=== PATIENT | female | born 1965 | race African-American/Black ===

== ENCOUNTER 2019-02-09 23:36 | Inpatient (IN) | payer BC, OTHER ==
[2019-02-10] MEDS ORDERED: ONDANSETRON 4 MG/2 ML VIAL IVPUSH ONE (01:22)
[2019-02-10] MEDS ORDERED: ACETAMINOPHEN 1000 MG/100 ML VIAL (NON FORMULARY) IVPB ONE (01:23)
--- NOTE | 2019-02-10 01:30 | PDOC ---
History of Present Illness - General Chief Complaint: SIRS, Suspected/Possible Stated Complaint: ICHING/FEVER/VOMITING Time Seen by Provider: 02/10/19 01:01 History Source: Patient, Family Exam Limitations: No Limitations - History of Present Illness Initial Comments: 02/10/19 01:25 53YOF with h/o CHF (states on two water pills), HTN, HLD, DM (not adherent to medications), and morbid obesity who p/w fever tonight, malaise, nausea, SOB, cough productive of clear sputum, orthopnea, worsened leg swelling, and redness/ itching to her extremities. The family deny having given her any antipyretic or other medication for her symptoms. They express concern that she has not been taking her medications regularly. The patient states that she is stressed because her mother just yesterday and she has not been able to focus on her health. Denies recent sick contacts. Past History - Past Medical History Allergies/Adverse Reactions: Allergies Allergy/AdvReac Type Severity Reaction Status Date / Time cortisone [Cortisone] AdvReac Mild Rash Verified 02/10/19 00:27 Home Medications: Ambulatory Orders Bupropion HCl [Wellbutrin Xl -] 300 mg PO DAILY 11/28/13 Rabeprazole Sodium [Aciphex] 20 mg PO DAILY 11/28/13 Loperamide HCl [Imodium -] 2 mg PO PRN PRN 12/01/13 Anemia: No Asthma: Yes Cardiac Disorders: Yes COPD: No Diabetes: Yes GI Disorders: Yes (ACID REFLUX,IBS) HTN: Yes Hypercholesterolemia: Yes - Surgical History Gastric Stapling: Yes (SLEEVE) - Suicide/Smoking/Psychosocial Hx Smoking History: Never smoked Have you smoked in the past 12 months: Yes Number of Cigarettes Smoked Daily: 5 'Breaking Loose' booklet given: 11/28/13 Hx Alcohol Use: Yes (OCC) Drug/Substance Use Hx: No Review of Systems - Review of Systems Able to Perform ROS?: Yes Comments:: 02/10/19 01:30 GEN: fever, chills, malaise, generalized weakness HEENT: no ear pain, sore throat, vision change, or eye pain CV: edema, no chest pain, palpitations, lightheadedness, or syncope RESP: cough, SOB GI: nausea, vomiting, diarrhea, vague abdominal pain, constipation, or white/ black/bloody stool : no dysuria, hematuria, incontinence, retention, bleeding, or discharge MSK: no neck/back pain, muscle weakness/pain, or joint pain NEURO: no headache, seizure, vertigo, numbness, tingling, or focal weakness PSYCH: no substance use, no behavior change SKIN: itchy rash to extremities, no jaundice ROS otherwise negative except as noted in HPI *Physical Exam - Vital Signs Last Vital Signs Temp Pulse Resp BP Pulse Ox 101.5 F H 114 H 22 H 116/73 95 02/10/19 00:24 02/10/19 00:24 02/10/19 00:24 02/10/19 00:24 02/10/19 00:24 - Physical Exam Comments: 02/10/19 01:32 GENERAL: pleasant but morbidly obese and a bit ill-appearing, A/Ox4, no distress , answers questions appropriately, speaking 3 word sentences HEENT: PERRLA, EOMI, moist mucous membranes NECK/BACK: no midline ttp, no spinal stepoff or deformity, no hematoma, full ROM , neck supple CARDIOVASCULAR: regular rate/rhythm, normal S1S2, no MGR, strong peripheral pulses, capillary refill <2 seconds, extremities wwp, 2+ pitting edema BLE and lipodermatosclerosis BLE LUNGS/RESPIRATORY: frequent cough, mild respiratory distress, CTAB GI/ABDOMEN: protuberant, symmetric [id number], normoactive BS, soft, no ttp, no midline pulsatile masses : no CVA tenderness EXTREMITIES: no muscle atrophy, no acute deformity SKIN: hot to the touch, no pallor, no jaundice, bilateral hand and foot mild pruritis rash which does not appear infectious in nature and is nontender, no bruising, no skin breakdown, no cuts, no lesions NEUROLOGICAL: GCS 15, CN II-XII grossly intact, 5/5 strength proximally and distally, no facial droop ED Treatment Course - LABORATORY CBC & Chemistry Diagram: 02/10/19 01:42 02/10/19 03:07 - RADIOLOGY Radiology Studies Ordered: Category Date Time Status CHEST X-RAY PORTABLE* [RAD] Stat Radiology 02/10/19 01:09 Ordered Medical Decision Making - Medical Decision Making 02/10/19 01:35 53YOF with h/o CHF who p/w fever, n/v/d, and also SOB, cough, orthopnea same as their prior CHF. Initial Vital Signs Temp Pulse Resp BP Pulse Ox 101.5 F H 114 H 22 H 116/73 95 02/10/19 00:24 02/10/19 00:24 02/10/19 00:24 02/10/19 00:24 02/10/19 00:24 Exam: As noted in Physical Exam section. DDX IBNLT: most likely viral syndrome/viral URI or influenza with superimposed CHF exacerbation, also possible PNA/bronchitis, pulmonary edema, other lung disease, ACS, pericarditis, AD, PE, PTX, allergic reaction, malignancy (e.g. causing pericardial effusion or vascular shunt), other infection, pulmonary HTN , etc. W/U ordered: CBCD CMP Troponin CK CKMB BNP UA UCx EKG CXR TX ordered: Parker Stewart EKG: Reviewed; results as noted in ECG Review section. CXR: Peripheral vascular congestion and enlarged cardiomediastinal silhouette. 02/10/19 02:50 Just noted that CMP is hemolyzed; re-ordered CMP, cardiac panel, BNP. 02/10/19 03:01 CXR noted with enlarged cardiomediastinal silhouette. Patient volume overloaded clinically and home dose Lasix is given IV. 02/10/19 04:35 Still awaiting chemistries on this patient. Laboratory Tests 02/10/19 02/10/19 02/10/19 00:29 01:42 01:42 WBC 4.5 RBC 4.50 Hgb 12.2 Hct 37.5 MCV 83.4 MCH 27.1 MCHC 32.4 RDW 18.8 H Plt Count 286 MPV 7.9 Absolute Neuts (auto) 3.0 Total Counted 100 Neutrophils % 66.3 Neutrophils % (Manual) 62.0 Band Neutrophils % 7.0 Lymphocytes % 9.8 Lymphocytes % (Manual) 10.0 Monocytes % 22.7 H Monocytes % (Manual) 20 H Eosinophils % 0.3 Basophils % 0.9 Basophils % (Manual) 1.0 Nucleated RBC % 0 Smudge Cells Few Platelet Estimate Adequate Platelet Comment No clotting detected PT with INR 11.90 INR 1.01 PTT (Actin FS) 29.3 VBG pH POC VBG pCO2 POC VBG pO2 VBG HCO3 VBG O2 Sat ([place]) VBG Base Excess Sodium Potassium Chloride Carbon Dioxide Anion Gap BUN Creatinine Est GFR (CKD-EPI)AfAm Est GFR (CKD-EPI)NonAf Random Glucose Lactic Acid 1.7 Calcium Total Bilirubin AST ALT Alkaline Phosphatase Creatine Kinase Troponin I B-Natriuretic Peptide Total Protein Albumin Influenza A (Rapid) Influenza B (Rapid) 02/10/19 02/10/19 02/10/19 01:42 01:42 01:42 WBC RBC Hgb Hct MCV MCH MCHC RDW Plt Count MPV Absolute Neuts (auto) Total Counted Neutrophils % Neutrophils % (Manual) Band Neutrophils % Lymphocytes % Lymphocytes % (Manual) Monocytes % Monocytes % (Manual) Eosinophils % Basophils % Basophils % (Manual) Nucleated RBC % Smudge Cells Platelet Estimate Platelet Comment PT with INR INR PTT (Actin FS) VBG pH 7.48 H POC VBG pCO2 47.6 POC VBG pO2 55.1 H VBG HCO3 34.7 H VBG O2 Sat ([place]) 88.0 H VBG Base Excess 10.0 H Sodium Cancelled Potassium Cancelled Chloride Cancelled Carbon Dioxide Cancelled Anion Gap Cancelled BUN Cancelled Creatinine Cancelled Est GFR (CKD-EPI)AfAm Cancelled Est GFR (CKD-EPI)NonAf Cancelled Random Glucose Cancelled Lactic Acid Calcium Cancelled Total Bilirubin Cancelled AST Cancelled ALT Cancelled Alkaline Phosphatase Cancelled Creatine Kinase Troponin I Cancelled B-Natriuretic Peptide Cancelled Total Protein Cancelled Albumin Cancelled Influenza A (Rapid) Influenza B (Rapid) 02/10/19 02/10/19 01:42 03:07 WBC RBC Hgb Hct MCV MCH MCHC RDW Plt Count MPV Absolute Neuts (auto) Total Counted Neutrophils % Neutrophils % (Manual) Band Neutrophils % Lymphocytes % Lymphocytes % (Manual) Monocytes % Monocytes % (Manual) Eosinophils % Basophils % Basophils % (Manual) Nucleated RBC % Smudge Cells Platelet Estimate Platelet Comment PT with INR INR PTT (Actin FS) VBG pH POC VBG pCO2 POC VBG pO2 VBG HCO3 VBG O2 Sat ([place]) VBG Base Excess Sodium 126 L Potassium 3.5 Chloride 85 L Carbon Dioxide 33 H Anion Gap 8 BUN 12.5 Creatinine 1.0 Est GFR (CKD-EPI)AfAm 75.54 Est GFR (CKD-EPI)NonAf 65.18 Random Glucose 119 H Lactic Acid Calcium 8.4 L Total Bilirubin 0.3 AST 90 H ALT 68 H Alkaline Phosphatase 85 Creatine Kinase 121 Troponin I < 0.02 B-Natriuretic Peptide 41.7 Total Protein 7.4 Albumin 3.4 Influenza A (Rapid) Negative Influenza B (Rapid) Negative Reassessment: Exam unchanged. Vital Signs Temperature 101.5 F H 02/10/19 00:24 Pulse Rate 109 H 02/10/19 03:06 Respiratory Rate 20 02/10/19 03:06 Blood Pressure 119/56 L 02/10/19 03:06 O2 Sat by Pulse Oximetry (%) 95 02/10/19 03:06 The Pt is unsafe for discharge at this time. They require further hospital observation, workup, and treatment. Pt needs IV meds 2/2 likely bowel edema as PO medications likely less effective. 02/10/19 06:13 I spoke with Bennie Mckeon; Decision to Admit order placed to him per his instruction. I have placed a non-contrast chest CT order per Dr. Mckeon's request. *DC/Admit/Observation/Transfer Diagnosis at time of Disposition: Hyponatremia, Systemic inflammatory response syndrome (SIRS) CHF exacerbation Qualifiers: Heart failure type: unspecified Qualified Code(s): I50.9 - Heart failure, unspecified - Discharge Dispostion Condition at time of disposition: Guarded Decision to Admit order: Yes - Referrals - Patient Instructions - Post Discharge Activity
--- NOTE | 2019-02-10 01:58 | PDOC ---
Documentation entered by Sara Beach SCRIBE, acting as scribe for Kandace Javed MD. Kandace Javed MD: This documentation has been prepared by the Yong mcfarlane Sammi, SCRIBE, under my direction and personally reviewed by me in its entirety. I confirm that the documentation accurately reflects all work, treatment, procedures, and medical decision making performed by me. Attending Attestation - Resident Resident Name: Parisa Trinh - ED Attending Attestation I have performed the following: I have examined & evaluated the patient, The case was reviewed & discussed with the resident, I agree w/resident's findings & plan, Exceptions are as noted - HPI HPI: 02/10/19 01:36 The patient is a 53 year old female, with a significant PMH of DM (not compliant with medication), CHF, HTN, HLD, morbidly obese, who presents to the emergency department for evaluation of several hours of fever, weakness, SOB, productive cough with clear sputum, nausea, vomiting, diarrhea, and lower extremity rash and edema. The patient notes a in the family which has distracted her from taking care of her health. She is not compliant with medications. The patient has not doing anything for her symptoms as of yet. - Physicial Exam PE: 02/10/19 01:35 GENERAL: (+)morbidly obese. (+)generalized malaise. Awake and alert. No acute distress. HEENT: (+)Dry mucous membranes. Normocephalic, atraumatic. PERRLA, EOMI. No conjunctival pallor. Sclera are non- icteric. Oropharynx is clear. NECK: Supple. Full ROM. No JVD. Carotid pulses 2+ and symmetric, without bruits. No thyromegaly. No lymphadenopathy. CARDIOVASCULAR: (+)Tachycardic No murmurs, rubs, or gallops. Distal pulses are 2+ and symmetric. PULMONARY: No evidence of respiratory distress. Lungs clear to auscultation bilaterally. No wheezing, rales or rhonchi. ABDOMINAL: protuberant belly Soft. Non-tender. Non-distended. No rebound or guarding. No organomegaly. Normoactive bowel sounds. MUSCULOSKELETAL Normal range of motion at all joints. No bony deformities or tenderness. No CVA tenderness. EXTREMITIES: (+)Lower extremity edema, 3+. (+)Chronic venous stasis changes No cyanosis. No clubbing. No edema. No calf tenderness. SKIN: Warm and dry. Normal capillary refill. No rashes. No jaundice. NEUROLOGICAL: Alert, awake, appropriate. Cranial nerves 2-12 intact. No deficits to light touch and temperature in face, upper extremities and lower extremities. No motor deficits in the in face, upper extremities and lower extremities. Normoreflexic in the upper and lower extremities. Normal speech. Toes are down- going bilaterally. - Medical Decision Making 02/10/19 01:55 morbidly obese 53 yo female p/s fever,tachycardia,shortness of breath and cough diff diag includes PNA,CHF, influenza plan cbc,BC,bpn,comp,cxr,ekg,trop,tylenol pt will be admitted
[2019-02-10 02:05] LABS: BASO % 0.9 % (0-2.0); EOS % 0.3 % (0-4.5); HEMATOCRIT 37.5 % (32.4-45.2); HEMOGLOBIN 12.2 GM/dL (10.7-15.3); LYMPH % 9.8 % (8-40); MCH 27.1 pg (25.7-33.7); MCHC 32.4 g/dl (32.0-36.0); MEAN CELL VOLUME 83.4 fl (80-96); MEAN PLT VOLUME 7.9 fl (7.5-11.1); MONO % 22.7 % (3.8-10.2); NEUT % 66.3 % (42.8-82.8); PLATELET COUNT 286 K/MM3 (134-434); RDW 18.8 % (11.6-15.6); VENOUS PC02 47.6 mmHg (41-51); VENOUS PH 7.48 (7.31-7.41); VENOUS PO2 55.1 mmHg (30-40); WHITE BLOOD COUNT 4.5 K/mm3 (4.0-10.0)
[2019-02-10] MEDS ORDERED: ACETAMINOPHEN INJECTION 100 ML IVPB ONE (02:11)
[2019-02-10] MEDS ORDERED: ONDANSETRON 4 MG/2 ML VIAL ONE (02:11)
[2019-02-10] MEDS ORDERED: SODIUM CHLORIDE 0.9% 500 ML INFUS.BAG IV ONE (02:17)
[2019-02-10 02:34] LABS: INR 1.01 (0.83-1.09); PROTHROMBIN TIME (PATIENT) 11.9 SEC (9.7-13.0)
[2019-02-10 02:36] LABS: ACTIVATED PTT 29.3 SECONDS (25.2-36.5)
[2019-02-10] MEDS ORDERED: FUROSEMIDE 40 MG/4 ML INJECTABLE VIAL IVPUSH ONE (03:00)
[2019-02-10] MEDS ORDERED: FUROSEMIDE 40 MG/4 ML INJECTABLE VIAL ONE (03:23)
[2019-02-10 03:26] LABS: PLATELET ESTIMATE ADEQUATE; SMUDGE CELLS FEW
[2019-02-10] MEDS ORDERED: CEFAZOLIN 1 GM/D5W 1 GM/50 ML BAG IVPB ONE (04:05)
[2019-02-10] MEDS ORDERED: CEFAZOLIN 1 GM/D5W 1 GM/50 ML BAG ONE (04:34)
[2019-02-10 04:36] LABS: ALBUMIN 3.4 g/dl (3.4-5.0); ALK PHOS 85 U/L (45-117); ANION GAP 8 MMOL/L (8-16); BILIRUBIN,TOTAL 0.3 mg/dL (0.2-1); BLOOD UREA NITROGEN 12.5 mg/dL (7-18); CALCIUM 8.4 mg/dL (8.5-10.1); CHLORIDE 85 mmol/L (98-107); CO2 33 mmol/L (21-32); GLUCOSE,RANDOM 119 mg/dL (74-106); N-TERMINAL BNP 41.7 pg/ml (5-125); POTASSIUM 3.5 mmol/L (3.5-5.1); SGOT/AST 90 U/L (15-37); SGPT/ALT 68 U/L (13-61); SODIUM 126 mmol/L (136-145); TOT PROT 7.4 g/dl (6.4-8.2)
[2019-02-10 08:07] LABS: URINE APPEARANCE CLEAR; URINE BILIRUBIN NEGATIVE (NEGATIVE); URINE COLOR YELLOW; URINE GLUCOSE (UA) NEGATIVE (NEGATIVE); URINE KETONE NEGATIVE (NEGATIVE); URINE LEUK ESTERASE NEGATIVE (NEGATIVE); URINE NITRITE NEGATIVE (NEGATIVE); URINE PROTEIN NEGATIVE (NEGATIVE); URINE UROBILINOGEN 0.2 mg/dL (0.2-1.0)
--- NOTE | 2019-02-10 09:39 | HP ---
Admitting History and Physical - Admission Chief Complaint: pt presented with [roductive cogh chills fever n/v diarrea 4 days. pt nevever took her metformin 2 wks ago for new dx dm. pt mother in [place] 1 day ago. some greif ? anxiety depp??/denies any other complaints History Source: Patient Limitations to Obtaining History: No Limitations - Past Medical History Pulmonary: Yes: Other (orthopnea) Gastrointestinal: Yes: Other (s/p sleeve) Reproductive: Yes: Fibroids, Postmenopausal ...LMP: 11/01/13 ...: No Musculoskeletal: Yes: Other (? lyphodema) - Past Surgical History Additional Past Surgical History: myomectomy sleeve also - Smoking History Smoking history: Current every day smoker Have you smoked in the past 12 months: Yes Aproximately how many cigarettes per day: 5 - Alcohol/Substance Use Hx Alcohol Use: Yes (OCC) History of Substance Use: reports: None - Social History Usual Living Arrangement: Yes: Alone History of Recent Travel: Yes Home Medications - Allergies Allergies/Adverse Reactions: Allergies Allergy/AdvReac Type Severity Reaction Status Date / Time cortisone [Cortisone] AdvReac Mild Rash Verified 02/10/19 00:27 - Home Medications Home Medications: Ambulatory Orders Bupropion HCl [Wellbutrin Xl -] 300 mg PO DAILY 11/28/13 Rabeprazole Sodium [Aciphex] 20 mg PO DAILY 11/28/13 Loperamide HCl [Imodium -] 2 mg PO PRN PRN 12/01/13 Family Disease History - Family Disease History Family History: Unremarkable Review of Systems - Review of Systems Constitutional: reports: Chills, Other (loose bm n/v cogh) HENT: reports: No Symptoms Neck: reports: No Symptoms Cardiovascular: reports: No Symptoms Respiratory: reports: Orthopnea Gastrointestinal: reports: Diarrhea, Nausea, Vomiting Genitourinary: reports: No Symptoms Breasts: reports: No Symptoms Reported Musculoskeletal: reports: No Symptoms Integumentary: reports: No Symptoms Neurological: reports: No Symptoms Endocrine: reports: No Symptoms Hematology/Lymphatic: reports: No Symptoms Psychiatric: reports: No Symptoms Physical Examination Vital Signs: Vital Signs Temperature 101.5 F H 02/10/19 00:24 Pulse Rate 109 H 02/10/19 03:06 Respiratory Rate 20 02/10/19 03:06 Blood Pressure 119/56 L 02/10/19 03:06 O2 Sat by Pulse Oximetry (%) 95 02/10/19 03:06 Constitutional: Yes: Anxious, Obese Eyes: Yes: WNL HENT: Yes: WNL Neck: Yes: WNL Cardiovascular: Yes: WNL Respiratory: Yes: Orthopnea Gastrointestinal: Yes: Abdomen, Obese ...Rectal Exam: Yes: Deferred Renal/: Yes: WNL Breast(s): Yes: WNL Musculoskeletal: Yes: WNL Extremities: Yes: Erythema Edema: Yes Edema: LLE: 2+, RLE: 2+ Peripheral Pulses WNL: Yes Integumentary: Yes: WNL Neurological: Yes: WNL ...Motor Strength: WNL Psychiatric: Yes: WNL Labs: CBC, BMP 02/10/19 01:42 02/10/19 03:07 Problem List - Problems (1) Acquired lymphedema of lower extremity Code(s): I89.0 - LYMPHEDEMA, NOT ELSEWHERE CLASSIFIED (2) Diabetes 1.5, managed as type 2 Code(s): E13.9 - OTHER SPECIFIED DIABETES MELLITUS WITHOUT COMPLICATIONS (3) Gastroenteritis Code(s): K52.9 - NONINFECTIVE GASTROENTERITIS AND COLITIS, UNSPECIFIED Assessment/Plan card id pulm consults on board chk labs in am before increasing dieretics? na ? dilutional ? levaqiun flagly for gastoenteritis atypical pneumoia cont all tx as is
[2019-02-10] MEDS ORDERED: LOPERAMIDE HCL 2 MG CAPSULE PO PRN (09:55)
--- NOTE | 2019-02-10 10:34 | EKG ---
Test Reason : Blood Pressure : / mmHG Vent. Rate : 107 BPM Atrial Rate : 107 BPM P-R Int : 134 ms QRS Dur : 088 ms QT Int : 344 ms P-R-T Axes : 043 050 046 degrees QTc Int : 459 ms SINUS TACHYCARDIA WITH PREMATURE ATRIAL COMPLEXES WITH ABERRANT CONDUCTION OTHERWISE NORMAL ECG NO PREVIOUS ECGS AVAILABLE Confirmed by RYAN WRAY, GHULAM ([id number]) on 02/10/2019 10:33:47 AM Referred By: Confirmed By:GHULAM DAVIS MD
--- NOTE | 2019-02-10 10:43 | CON.ID ---
Consult Consult Specialty:: infectious disease Referred by:: Bennie Mckeon Reason for Consultation:: fever - History of Present Illness Chief Complaint: fever, cough, chills, itchy hand and feet History of Present Illness: 53 yo female morbidly obese- has been with mom at [place] - mom this weekend- developed chills on Sunday, then vomiting, nonbloody diarrhea she has chronic loose stools from IBD she noted fever itchy hands and feet and swelling of her legs no travel cough with clear mucous has increased no new meds-hasn't started metformin yet no travel friend is staying with her who is chronically ill has sleep apnea machine at home doesn't use it - History Source History Provided By: Patient Limitations to Obtaining History: No Limitations - Past Medical History Cardio/Vascular: Yes: CAD, HTN Pulmonary: Yes: Other (orthopnea) Gastrointestinal: Yes: Other (s/p sleeve) ...LMP: 11/01/13 ...: No Musculoskeletal: Yes: Other (? lyphodema) Endocrine: Yes: Diabetes Mellitus - Past Surgical History Additional Surgical History: gastric sleeve 2011, myomectomy 2003 - Alcohol/Substance Use Hx Alcohol Use: Yes (OCC) History of Substance Use: reports: None - Smoking History Smoking history: Current every day smoker Have you smoked in the past 12 months: Yes Aproximately how many cigarettes per day: 5 - Social History Usual Living Arrangement: With Parent ADL: Independent Place of : [facility] History of Recent Travel: No Home Medications - Allergies Allergies/Adverse Reactions: Allergies Allergy/AdvReac Type Severity Reaction Status Date / Time cortisone [Cortisone] AdvReac Mild Rash Verified 02/10/19 00:27 - Home Medications Home Medications: Ambulatory Orders Bupropion HCl [Wellbutrin Xl -] 300 mg PO DAILY 11/28/13 Rabeprazole Sodium [Aciphex] 20 mg PO DAILY 11/28/13 Loperamide HCl [Imodium -] 2 mg PO PRN PRN 12/01/13 Family Disease History - Family Disease History Family Disease History: Other: Mother (dementia) Review of Systems - Review of Systems Constitutional: reports: Chills, Fever Eyes: reports: No Symptoms HENT: reports: No Symptoms Neck: reports: No Symptoms Cardiovascular: denies: Chest Pain Respiratory: reports: Cough Gastrointestinal: reports: No Symptoms, Diarrhea, Vomiting Genitourinary: reports: No Symptoms Integumentary: reports: Rash Physical Exam Vital Signs: Vital Signs Temperature 98.1 F 02/10/19 09:00 Pulse Rate 92 H 02/10/19 09:00 Respiratory Rate 24 H 02/10/19 09:00 Blood Pressure 117/72 02/10/19 09:00 O2 Sat by Pulse Oximetry (%) 95 02/10/19 09:00 Constitutional: Yes: Well Nourished, Obese Eyes: Yes: Conjunctiva Clear HENT: Yes: Atraumatic, Normocephalic. No: Pharyngeal Erythema Neck: Yes: Supple Cardiovascular: Yes: Regular Rate and Rhythm Respiratory: Yes: Diminished Gastrointestinal: Yes: Normal Bowel Sounds, Soft ...Rectal Exam: Yes: Deferred Edema: LLE: 2+, RLE: 2+ Integumentary: Yes: Rash (erythema of the hands, small vesicular rash along sides of her legs, back is erythematous as well) Psychiatric: Yes: Alert, Oriented Labs: CBC, BMP 02/10/19 01:42 02/10/19 03:07 Laboratory Tests 02/10/19 03:07 AST 90 H ALT 68 H Imaging - Results Cat Scan: Report Reviewed Ultrasound: Report Reviewed Problem List - Problems (1) Fever Code(s): R50.9 - FEVER, UNSPECIFIED (2) Gastroenteritis Code(s): K52.9 - NONINFECTIVE GASTROENTERITIS AND COLITIS, UNSPECIFIED (3) Cough Code(s): R05 - COUGH (4) Rash and nonspecific skin eruption Code(s): R21 - RASH AND OTHER NONSPECIFIC SKIN ERUPTION (5) Abnormal LFTs Code(s): R94.5 - ABNORMAL RESULTS OF LIVER FUNCTION STUDIES (6) Hyponatremia Code(s): E87.1 - HYPO-OSMOLALITY AND HYPONATREMIA (7) Morbid obesity Code(s): E66.01 - MORBID (SEVERE) OBESITY DUE TO EXCESS CALORIES Assessment/Plan will treat with levaquin and flagyl to cover gastroenteritis as well as atypical pneumonia (hyponatremai, abnl lfts and cough) check legionella urianry antigen stool culture stool cdiff returned to examin rash- it has resolved!
--- NOTE | 2019-02-10 11:07 | CON.PULM ---
Consult Consult Specialty:: PULM/CCM Referred by:: NOEMI Reason for Consultation:: SOB - History of Present Illness Chief Complaint: SOB History of Present Illness: 53 F, CHF (on 2 diuretics), HTN, HLD, DM, OSAS not on treatment, smoker, and morbid obesity. Admitted via the ER due to fever, malaise, nausea, SOB, cough productive of clear sputum, orthopnea, and worsening leg edema. Reports a few days of rash on her hands and dorsal portion of her feet. Reports that a friend that has been living with her has had similar symptoms for several weeks. No hemoptysis or night sweats. No travel history. No new medications. CTA: no PE / dependent atelectatic changes / no infiltrates/consolidation / no pleural effusions or indication of CHF - History Source History Provided By: Patient Limitations to Obtaining History: No Limitations - Past Medical History Pulmonary: Yes: Bronchitis, Sleep Apnea, Other (orthopnea). No: Asthma, Cancer , COPD, O2 Dependent, Pneumonia, Previously Intubated, Pulmonary Embolus, Pulmonary Fibrosis Gastrointestinal: Yes: Other (s/p sleeve) ...LMP: 11/01/13 ...: No Musculoskeletal: Yes: Other (? lyphodema) - Alcohol/Substance Use Hx Alcohol Use: Yes (OCC) History of Substance Use: reports: None - Smoking History Smoking history: Current every day smoker Have you smoked in the past 12 months: Yes Aproximately how many cigarettes per day: 5 - Social History History of Recent Travel: Yes Home Medications - Allergies Allergies/Adverse Reactions: Allergies Allergy/AdvReac Type Severity Reaction Status Date / Time cortisone [Cortisone] AdvReac Mild Rash Verified 02/10/19 00:27 - Home Medications Home Medications: Ambulatory Orders Bupropion HCl [Wellbutrin Xl -] 300 mg PO DAILY 11/28/13 Rabeprazole Sodium [Aciphex] 20 mg PO DAILY 11/28/13 Loperamide HCl [Imodium -] 2 mg PO PRN PRN 12/01/13 Review of Systems - Review of Systems Constitutional: reports: Loss of Appetite, Malaise. denies: Chills, Fever, Night Sweats, Unintentional Wgt. Loss Eyes: reports: No Symptoms HENT: reports: No Symptoms Neck: reports: No Symptoms Cardiovascular: reports: Edema, Shortness of Breath. denies: Chest Pain, Palpitations Respiratory: reports: Cough, Orthopnea, Snoring, SOB, SOB on Exertion. denies: Hemoptysis, Wheezing Gastrointestinal: reports: Abdominal Pain, Indigestion Genitourinary: reports: No Symptoms Breasts: reports: No Symptoms Reported Musculoskeletal: reports: No Symptoms Integumentary: reports: Blister, Change in Color, Erythema Neurological: reports: No Symptoms Endocrine: reports: No Symptoms Hematology/Lymphatic: reports: No Symptoms Psychiatric: reports: No Symptoms Physical Exam Vital Sings: Vital Signs Temperature 98.1 F 02/10/19 09:00 Pulse Rate 92 H 02/10/19 09:00 Respiratory Rate 24 H 02/10/19 09:00 Blood Pressure 117/72 02/10/19 09:00 O2 Sat by Pulse Oximetry (%) 95 02/10/19 09:00 Constitutional: Yes: Mild Distress, Obese Eyes: Yes: Conjunctiva Clear, EOM Intact HENT: Yes: Atraumatic, Normocephalic Neck: Yes: Supple, Trachea Midline Cardiovascular: Yes: Regular Rate and Rhythm Respiratory: Yes: SOB, SOB on Exertion, Tachypnea. No: Accessory Muscle Use, Rales, Rhonchi, Stridor, Wheezes ...Clubbing: No Gastrointestinal: Yes: Normal Bowel Sounds, Soft, Abdomen, Obese Musculoskeletal: Yes: WNL Extremities: Yes: WNL Edema: Yes Peripheral Pulses WNL: Yes Integumentary: Yes: Erythema, Rash, Venous Stasis Changes Neurological: Yes: WNL, Alert, Oriented ...Motor Strength: WNL Psychiatric: Yes: WNL, Alert, Oriented Labs: CBC, BMP 02/10/19 01:42 02/10/19 03:07 Imaging - Results Chest X-ray: Report Reviewed, Image Reviewed Cat Scan: Report Reviewed, Image Reviewed Problem List - Problems (1) Sleep apnea Code(s): G47.30 - SLEEP APNEA, UNSPECIFIED (2) Smoker Code(s): F17.200 - NICOTINE DEPENDENCE, UNSPECIFIED, UNCOMPLICATED (3) Rash and nonspecific skin eruption Code(s): R21 - RASH AND OTHER NONSPECIFIC SKIN ERUPTION (4) Morbid obesity Code(s): E66.01 - MORBID (SEVERE) OBESITY DUE TO EXCESS CALORIES (5) Dyspnea Code(s): R06.00 - DYSPNEA, UNSPECIFIED (6) Atelectasis of both lungs Code(s): J98.11 - ATELECTASIS (7) Acquired lymphedema of lower extremity Code(s): I89.0 - LYMPHEDEMA, NOT ELSEWHERE CLASSIFIED (8) Diabetes 1.5, managed as type 2 Code(s): E13.9 - OTHER SPECIFIED DIABETES MELLITUS WITHOUT COMPLICATIONS (9) Hyponatremia Code(s): E87.1 - HYPO-OSMOLALITY AND HYPONATREMIA Assessment/Plan IMP: R/O Influenza Levaquin Check urinary antigen O2 as needed Will need formal sleep re-evaluation after D/C [place]-culture If rash worsens -> may be useful for Derm evaluation No smoking Outpatient PFTs BD TX PRN No clear indication for systemic steroids Follow NA levels Do not believe that she is in decompensated CHF: Hold Lasix for now given recent contrast load Will follow Thank you. Dr Mix
[2019-02-10] MEDS ORDERED: ALBUTEROL SO4 0.083% IH SOL 2.5 MG/3 ML VIAL.NEB. NEB PRN (11:12)
[2019-02-10] MEDS ORDERED: ONDANSETRON *ODT* 4 MG TABLET SL ONE (11:25)
[2019-02-10] MEDS: PANTOPRAZOLE SODIUM 40 MG VIAL IVPUSH SCH (11:58)
[2019-02-10] MEDS ORDERED: FUROSEMIDE 40 MG/4 ML INJECTABLE VIAL IVPUSH SCH (14:00)
[2019-02-10] MEDS: ALBUTEROL SO4 2.5/IPRATROPIUM 0.5 INH SOL 3 ML VIAL.NEB. NEB SCH ×2 (14:37→19:57)
--- NOTE | 2019-02-10 15:49 | CON.CARD ---
Consult Consult Specialty:: Cardiology Referred by:: Dr. Mckeon Reason for Consultation:: SOB, edema - History of Present Illness Chief Complaint: edema, sob History of Present Illness: 53 year old woman with a pmh HTN, HLD, DM (not adherent to medications), reported CHF and morbid obesity admitted with fever, productive cough, worsening b/l LE edema, redness and itching of extremities. Pt has not been taking her medications regularly. pt seen and examined today in nad. appears mildly sob with talking. denies any chest pain, palpitations. - Past Medical History Pulmonary: Yes: Bronchitis, Sleep Apnea, Other (orthopnea). No: Asthma, Cancer , COPD, O2 Dependent, Pneumonia, Previously Intubated, Pulmonary Embolus, Pulmonary Fibrosis Gastrointestinal: Yes: Other (s/p sleeve) ...LMP: 11/01/13 ...: No Musculoskeletal: Yes: Other (? lyphodema) - Alcohol/Substance Use Hx Alcohol Use: Yes (OCC) History of Substance Use: reports: None - Smoking History Smoking history: Current every day smoker Have you smoked in the past 12 months: Yes Aproximately how many cigarettes per day: 5 - Social History History of Recent Travel: Yes Home Medications - Allergies Allergies/Adverse Reactions: Allergies Allergy/AdvReac Type Severity Reaction Status Date / Time cortisone [Cortisone] AdvReac Mild Rash Verified 02/10/19 00:27 - Home Medications Home Medications: Ambulatory Orders Bupropion HCl [Wellbutrin Xl -] 300 mg PO DAILY 11/28/13 Rabeprazole Sodium [Aciphex] 20 mg PO DAILY 11/28/13 Loperamide HCl [Imodium -] 2 mg PO PRN PRN 12/01/13 Vital Signs: Vital Signs Temperature 98.7 F 02/10/19 15:00 Pulse Rate 84 02/10/19 15:00 Respiratory Rate 18 02/10/19 15:00 Blood Pressure 134/86 02/10/19 15:00 O2 Sat by Pulse Oximetry (%) 96 02/10/19 10:00 - Other Data Labs, Other Data: CBC, BMP 02/10/19 01:42 02/10/19 03:07 INR, PTT INR 1.01 (0.83-1.09) 02/10/19 01:42 Troponin, BNP 02/10/19 02/10/19 01:42 03:07 Troponin I Cancelled < 0.02 B-Natriuretic Peptide Cancelled 41.7 Troponin, BNP 02/10/19 02/10/19 01:42 03:07 Troponin I Cancelled < 0.02 B-Natriuretic Peptide Cancelled 41.7 Assessment/Plan 53 year old woman with a pmh HTN, HLD, DM (not adherent to medications), reported CHF and morbid obesity admitted with fever, productive cough, worsening b/l LE edema, redness and itching of extremities. Pt has not been taking her medications regularly. pt seen and examined today in nad. appears mildly sob with talking. denies any chest pain, palpitations. SOB/LE edema -CTA chest was done showing no PE and no evidence of pulmonary edema -BNP is normal -cardiac enzymes normal -peripheral edema appears c/w chronic venous insufficiency, and no DVT on US -would not recommend diuresis at this time. -echo has been ordered already, fup results -no additional inpatient cardiac work up is needed at this time. Please call with any additional questions.
[2019-02-10] MEDS: INSULIN SLIDING SCALE (NOVOLOG) 1 VIAL SQ SCH ×2 (17:21→23:15)
[2019-02-10] MEDS: BACITRACIN 15 GM TUBE TOPICAL OINTMENT TP SCH ×2 (17:22→17:35)
[2019-02-10] MEDS: ACETAMINOPHEN 325 MG TABLET (FP) PO PRN (17:35)
--- NOTE | 2019-02-10 17:53 | PN ---
Progress Note, Physician - Current Medication List Current Medications: Active Medications Acetaminophen (Tylenol -) 650 mg PO Q4H PRN PRN Reason: FEVER Last Admin: 02/10/19 17:35 Dose: 650 mg Albuterol Sulfate (Ventolin 0.083% Nebulizer Soln -) 1 amp NEB Q4H PRN PRN Reason: SHORT OF BREATH/WHEEZING Albuterol/Ipratropium (Duoneb -) 1 amp NEB RTID [facility] Last Admin: 02/10/19 14:37 Dose: Not Given Aspirin (Ecotrin -) 81 mg PO DAILY [facility] Bacitracin (Bacitracin -) 1 applic TP DAILY [facility] Last Admin: 02/10/19 17:35 Dose: 1 applic Bupropion HCl (Wellbutrin Xl -) 300 mg PO DAILY [facility] Last Admin: 02/10/19 11:26 Dose: 300 mg Carvedilol (Coreg -) 6.25 mg PO BID [facility] Levofloxacin (Levaquin 500 Mg Premixed Ivpb -) 500 mg in 100 mls @ 100 mls/hr IVPB DAILY [facility]; Protocol Last Admin: 02/10/19 11:28 Dose: 100 mls/hr Metronidazole (Flagyl 500mg Premixed Ivpb -) 500 mg in 100 mls @ 100 mls/hr IVPB Q8H-IV [facility] Last Admin: 02/10/19 11:28 Dose: 100 mls/hr Insulin Aspart (Novolog Vial Sliding Scale -) 1 vial SQ ACHS [facility]; Protocol Last Admin: 02/10/19 17:21 Dose: Not Given Loperamide HCl (Imodium -) 4 mg PO Q6H PRN PRN Reason: DIARRHEA Nicotine (Nicoderm Patch -) 14 mg TD DAILY [facility] Pantoprazole Sodium (Protonix Iv) 40 mg IVPUSH DAILY [facility] Last Admin: 02/10/19 11:58 Dose: 40 mg Pneumococcal 13-Valent Conj Vacc (Prevnar 13 Syringe -) 0.5 ml IM .ONCE ONE Stop: 02/11/19 10:01 Potassium Chloride (K-Dur -) 10 meq PO DAILY [facility] - Objective Vital Signs: Vital Signs Temperature 98.7 F 02/10/19 15:00 Pulse Rate 84 02/10/19 15:00 Respiratory Rate 18 02/10/19 15:00 Blood Pressure 134/86 02/10/19 15:00 O2 Sat by Pulse Oximetry (%) 96 02/10/19 10:00 Labs: CBC, BMP 02/10/19 01:42 02/10/19 03:07 INR, PTT INR 1.01 (0.83-1.09) 02/10/19 01:42 Problem List - Problems (1) Acquired lymphedema of lower extremity Code(s): I89.0 - LYMPHEDEMA, NOT ELSEWHERE CLASSIFIED (2) Diabetes 1.5, managed as type 2 Code(s): E13.9 - OTHER SPECIFIED DIABETES MELLITUS WITHOUT COMPLICATIONS (3) Gastroenteritis Code(s): K52.9 - NONINFECTIVE GASTROENTERITIS AND COLITIS, UNSPECIFIED Assessment/Plan pt euvolimic hyponatremia agree w holding diuretics for now
[2019-02-10] MEDS: CARVEDILOL 6.25 MG TABLET (FP) PO SCH (23:15)
[2019-02-11] MEDS: ACETAMINOPHEN 325 MG TABLET (FP) PO PRN ×4 (05:30→22:07)
[2019-02-11] MEDS: INSULIN SLIDING SCALE (NOVOLOG) 1 VIAL SQ SCH ×4 (06:17→22:07)
[2019-02-11] MEDS: ALBUTEROL SO4 2.5/IPRATROPIUM 0.5 INH SOL 3 ML VIAL.NEB. NEB SCH ×3 (07:54→20:25)
[2019-02-11 08:07] LABS: BASO % 1.3 % (0-2.0); EOS % 4.6 % (0-4.5); HEMATOCRIT 35.1 % (32.4-45.2); HEMOGLOBIN 11.4 GM/dL (10.7-15.3); LYMPH % 27.2 % (8-40); MCH 26.9 pg (25.7-33.7); MCHC 32.5 g/dl (32.0-36.0); MEAN CELL VOLUME 82.8 fl (80-96); MEAN PLT VOLUME 7.5 fl (7.5-11.1); MONO % 33.8 % (3.8-10.2); NEUT % 33.1 % (42.8-82.8); PLATELET COUNT 290 K/MM3 (134-434); RBC 4.24 M/mm3 (3.60-5.2); RDW 18.8 % (11.6-15.6); WHITE BLOOD COUNT 2.5 K/mm3 (4.0-10.0)
[2019-02-11 08:12] LABS: CALCIUM 8.8 mg/dL (8.5-10.1); CREATININE 0.9 mg/dL (0.55-1.3); POTASSIUM 3.5 mmol/L (3.5-5.1)
[2019-02-11] MEDS ORDERED: PNEUMOC 13-VAL CONJ-DIP CRM/PF 0.5 ML DISP.SYRIN IM ONE (10:00)
[2019-02-11] MEDS ORDERED: PNEUMOCOCCAL 23 VACCINE 0.5 ML VIAL IM ONE (10:00)
[2019-02-11] MEDS ORDERED: INSULIN (NOVOLOG) ASPART 100 UNITS/ML 10ML VIAL ONE ×2 (10:37→16:25)
[2019-02-11] MEDS ORDERED: PT OWN MED DRAWER 7, Y5N ONE (10:40)
[2019-02-11] MEDS: PANTOPRAZOLE SODIUM 40 MG VIAL IVPUSH SCH (10:47)
[2019-02-11] MEDS: ASPIRIN COATED 81 MG TABLET.EC PO SCH (10:47)
[2019-02-11] MEDS: CARVEDILOL 6.25 MG TABLET (FP) PO SCH ×2 (10:50→22:07)
[2019-02-11] MEDS: BACITRACIN 15 GM TUBE TOPICAL OINTMENT TP SCH (10:52)
[2019-02-11] MEDS: POTASSIUM CHLORIDE TABS 10 MEQ TABLET.ER (FP) PO SCH (10:52)
--- NOTE | 2019-02-11 10:55 | PN ---
Progress Note, Physician Chief Complaint: eryethematous david hand itchy and soles of feet ant region itchy started 2 days ago [facility] nausea less no vomiting no sob w o2 only? pickwicking syndrome? oral ? thrush wbc low w shifting to left loose bm no change wd graniloma abcess drined as out pt ? healed - Current Medication List Current Medications: Active Medications Acetaminophen (Tylenol -) 650 mg PO Q4H PRN PRN Reason: FEVER Last Admin: 02/11/19 05:30 Dose: 650 mg Albuterol Sulfate (Ventolin 0.083% Nebulizer Soln -) 1 amp NEB Q4H PRN PRN Reason: SHORT OF BREATH/WHEEZING Albuterol/Ipratropium (Duoneb -) 1 amp NEB RTID [facility] Last Admin: 02/11/19 07:54 Dose: Not Given Aspirin (Ecotrin -) 81 mg PO DAILY [facility] Bacitracin (Bacitracin -) 1 applic TP DAILY [facility] Last Admin: 02/10/19 17:35 Dose: 1 applic Bupropion HCl (Wellbutrin Xl -) 300 mg PO DAILY [facility] Last Admin: 02/10/19 11:26 Dose: 300 mg Carvedilol (Coreg -) 6.25 mg PO BID [facility] Last Admin: 02/10/19 23:15 Dose: 6.25 mg Levofloxacin (Levaquin 500 Mg Premixed Ivpb -) 500 mg in 100 mls @ 100 mls/hr IVPB DAILY [facility]; Protocol Last Admin: 02/10/19 11:28 Dose: 100 mls/hr Metronidazole (Flagyl 500mg Premixed Ivpb -) 500 mg in 100 mls @ 100 mls/hr IVPB Q8H-IV [facility] Last Admin: 02/11/19 01:57 Dose: 100 mls/hr Insulin Aspart (Novolog Vial Sliding Scale -) 1 vial SQ ACHS [facility]; Protocol Last Admin: 02/11/19 06:17 Dose: Not Given Loperamide HCl (Imodium -) 4 mg PO Q6H PRN PRN Reason: DIARRHEA Nicotine (Nicoderm Patch -) 14 mg TD DAILY [facility] Pantoprazole Sodium (Protonix Iv) 40 mg IVPUSH DAILY [facility] Last Admin: 02/10/19 11:58 Dose: 40 mg Potassium Chloride (K-Dur -) 10 meq PO DAILY [facility] - Objective Vital Signs: Vital Signs Temperature 100.8 F H 02/11/19 07:45 Pulse Rate 104 H 02/11/19 07:45 Respiratory Rate 20 02/11/19 07:45 Blood Pressure 114/77 02/11/19 07:45 O2 Sat by Pulse Oximetry (%) 96 02/10/19 21:00 Constitutional: Yes: Calm, Other (feet scrchy) Eyes: Yes: WNL HENT: Yes: WNL Neck: Yes: WNL Cardiovascular: Yes: WNL Respiratory: Yes: On Nasal O2, SOB on Exertion Gastrointestinal: Yes: Hypoactive Bowel Sounds, Other (diarrea) ...Rectal Exam: Yes: Deferred Genitourinary: Yes: WNL Breast(s): Yes: WNL Musculoskeletal: Yes: WNL Extremities: Yes: Other (no change) Edema: Yes Edema: LLE: 1+, RLE: 1+ Peripheral Pulses WNL: Yes Peripheral Pulses: Left Radial: 2+, Right Radial: 2+ (pos ramos test) Integumentary: Yes: Other (hand feet ? rash) Neurological: Yes: WNL ...Motor Strength: WNL Psychiatric: Yes: WNL Labs: CBC, BMP 02/11/19 06:58 02/11/19 06:58 INR, PTT INR 1.01 (0.83-1.09) 02/10/19 01:42 Problem List - Problems (1) Acquired lymphedema of lower extremity Code(s): I89.0 - LYMPHEDEMA, NOT ELSEWHERE CLASSIFIED (2) Diabetes 1.5, managed as type 2 Code(s): E13.9 - OTHER SPECIFIED DIABETES MELLITUS WITHOUT COMPLICATIONS (3) Gastroenteritis Code(s): K52.9 - NONINFECTIVE GASTROENTERITIS AND COLITIS, UNSPECIFIED Assessment/Plan hiv test swich swallow bid nystatin ? add or change to cetrioxone up to id hydrocotizone ointment hands feet ? gi if diarrea cont ibs d must be entertanted doubt viral still dx cont hold diuretics chk labs in am hand foot mouth dz rmsf doubt vdrl neg ? ctd in my chart ? raynaunds phenomena
[2019-02-11] MEDS: NICOTINE 14 MG/24 HOURS TOPICAL PATCH TD SCH (11:00)
[2019-02-11] MEDS ORDERED: HYDROCORTISONE 2.5% LOTION - 1 BOTTLE TP PRN (11:05)
--- NOTE | 2019-02-11 11:44 | PN ---
Progress Note (short form) - Note Progress Note: Appears and feels better today, Less SOB. Appears comfortable on RA. Rash is better. Per PMD: there may be a history of Raynauds phenomenon. Intake & Output 02/08/19 02/09/19 02/10/19 02/11/19 23:59 23:59 23:59 23:59 Intake Total 720 345 Output Total 700 Balance 20 345 Weight 371 lb 1.6 oz 369 lb 7 oz Last Vital Signs Temp Pulse Resp BP Pulse Ox 99.5 F 97 H 20 116/60 96 02/11/19 11:00 02/11/19 11:00 02/11/19 11:00 02/11/19 11:00 02/10/19 21:00 Active Medications Acetaminophen (Tylenol -) 650 mg PO Q4H PRN PRN Reason: FEVER Last Admin: 02/11/19 10:48 Dose: 650 mg Albuterol Sulfate (Ventolin 0.083% Nebulizer Soln -) 1 amp NEB Q4H PRN PRN Reason: SHORT OF BREATH/WHEEZING Albuterol/Ipratropium (Duoneb -) 1 amp NEB RTID [facility] Last Admin: 02/11/19 07:54 Dose: Not Given Aspirin (Ecotrin -) 81 mg PO DAILY [facility] Last Admin: 02/11/19 10:47 Dose: 81 mg Bacitracin (Bacitracin -) 1 applic TP DAILY [facility] Last Admin: 02/11/19 10:52 Dose: 1 applic Bupropion HCl (Wellbutrin Xl -) 300 mg PO DAILY [facility] Last Admin: 02/11/19 10:48 Dose: 300 mg Carvedilol (Coreg -) 6.25 mg PO BID [facility] Last Admin: 02/11/19 10:50 Dose: 6.25 mg Hydrocortisone (Hytone 2.5% Lotion -) 1 applic TP BID PRN PRN Reason: FOR ITCHING Levofloxacin (Levaquin 500 Mg Premixed Ivpb -) 500 mg in 100 mls @ 100 mls/hr IVPB DAILY [facility]; Protocol Last Admin: 02/11/19 10:48 Dose: 100 mls/hr Metronidazole (Flagyl 500mg Premixed Ivpb -) 500 mg in 100 mls @ 100 mls/hr IVPB Q8H-IV [facility] Last Admin: 02/11/19 10:48 Dose: 100 mls/hr Insulin Aspart (Novolog Vial Sliding Scale -) 1 vial SQ ACHS [facility]; Protocol Last Admin: 02/11/19 11:21 Dose: Not Given Loperamide HCl (Imodium -) 4 mg PO Q6H PRN PRN Reason: DIARRHEA Nicotine (Nicoderm Patch -) 14 mg TD DAILY [facility] Last Admin: 02/11/19 11:00 Dose: 14 mg Nystatin (Nystatin Oral Suspension -) 500,000 units PO Q6HPO [facility] Pantoprazole Sodium (Protonix Iv) 40 mg IVPUSH DAILY [facility] Last Admin: 02/11/19 10:47 Dose: 40 mg Potassium Chloride (K-Dur -) 10 meq PO DAILY [facility] Last Admin: 02/11/19 10:52 Dose: 10 meq Constitutional: Yes: Awake and alert, NAD Eyes: Yes: Conjunctiva Clear, EOM Intact HENT: Yes: Atraumatic, Normocephalic Neck: Yes: Supple, Trachea Midline Cardiovascular: Yes: Regular Rate and Rhythm Respiratory: Yes: Diminished at the bases, no wheeze, (+) RODRIGUEZ. No: Accessory Muscle Use, Rales, Rhonchi, Stridor, Wheezes ...Clubbing: No Gastrointestinal: Yes: Normal Bowel Sounds, Soft, Abdomen, Obese Musculoskeletal: Yes: WNL Extremities: Yes: WNL Edema: Yes Peripheral Pulses WNL: Yes Integumentary: Yes: Erythema, Rash, Venous Stasis Changes Neurological: Yes: WNL, Alert, Oriented ...Motor Strength: WNL Psychiatric: Yes: WNL, Alert, Oriented Labs: Laboratory Results - last 24 hr 02/10/19 02/10/19 02/10/19 11:35 11:55 11:55 WBC RBC Hgb Hct MCV MCH MCHC RDW Plt Count MPV Absolute Neuts (auto) Neutrophils % Lymphocytes % Monocytes % Eosinophils % Basophils % Nucleated RBC % Sodium Potassium Chloride Carbon Dioxide Anion Gap BUN Creatinine Est GFR (CKD-EPI)AfAm Est GFR (CKD-EPI)NonAf POC Glucometer Random Glucose Serum Osmolality 268 L Calcium Urine Osmolality 504 Ur Random Sodium RPR Titer Nonreactive 02/10/19 02/10/19 02/10/19 17:20 23:14 23:50 WBC RBC Hgb Hct MCV MCH MCHC RDW Plt Count MPV Absolute Neuts (auto) Neutrophils % Lymphocytes % Monocytes % Eosinophils % Basophils % Nucleated RBC % Sodium Potassium Chloride Carbon Dioxide Anion Gap BUN Creatinine Est GFR (CKD-EPI)AfAm Est GFR (CKD-EPI)NonAf POC Glucometer 116 132 Random Glucose Serum Osmolality Calcium Urine Osmolality Ur Random Sodium < 18 L RPR Titer 02/11/19 02/11/19 02/11/19 05:45 06:58 06:58 WBC 2.5 L RBC 4.24 Hgb 11.4 Hct 35.1 MCV 82.8 MCH 26.9 MCHC 32.5 RDW 18.8 H Plt Count 290 MPV 7.5 Absolute Neuts (auto) 0.8 L Neutrophils % 33.1 L D Lymphocytes % 27.2 D Monocytes % 33.8 H Eosinophils % 4.6 H D Basophils % 1.3 Nucleated RBC % 0 Sodium 128 L Potassium 3.5 Chloride 84 L Carbon Dioxide 37 H Anion Gap 6 L BUN 11.0 Creatinine 0.9 Est GFR (CKD-EPI)AfAm 85.80 Est GFR (CKD-EPI)NonAf 74.03 POC Glucometer 134 Random Glucose 138 H Serum Osmolality Calcium 8.8 Urine Osmolality Ur Random Sodium RPR Titer 02/11/19 11:20 WBC RBC Hgb Hct MCV MCH MCHC RDW Plt Count MPV Absolute Neuts (auto) Neutrophils % Lymphocytes % Monocytes % Eosinophils % Basophils % Nucleated RBC % Sodium Potassium Chloride Carbon Dioxide Anion Gap BUN Creatinine Est GFR (CKD-EPI)AfAm Est GFR (CKD-EPI)NonAf POC Glucometer 113 Random Glucose Serum Osmolality Calcium Urine Osmolality Ur Random Sodium RPR Titer Problem List - Problems (1) Sleep apnea Code(s): G47.30 - SLEEP APNEA, UNSPECIFIED (2) Smoker Code(s): F17.200 - NICOTINE DEPENDENCE, UNSPECIFIED, UNCOMPLICATED (3) Rash and nonspecific skin eruption Code(s): R21 - RASH AND OTHER NONSPECIFIC SKIN ERUPTION (4) Morbid obesity Code(s): E66.01 - MORBID (SEVERE) OBESITY DUE TO EXCESS CALORIES (5) Dyspnea Code(s): R06.00 - DYSPNEA, UNSPECIFIED (6) Atelectasis of both lungs Code(s): J98.11 - ATELECTASIS (7) Acquired lymphedema of lower extremity Code(s): I89.0 - LYMPHEDEMA, NOT ELSEWHERE CLASSIFIED (8) Diabetes 1.5, managed as type 2 Code(s): E13.9 - OTHER SPECIFIED DIABETES MELLITUS WITHOUT COMPLICATIONS (9) Hyponatremia Code(s): E87.1 - HYPO-OSMOLALITY AND HYPONATREMIA Assessment/Plan Levaquin Follow urinary antigen O2 as needed Will need formal sleep re-evaluation after D/C Follow cultures No smoking Outpatient PFTs BD TX PRN No clear indication for systemic steroids Do not believe that she is in decompensated CHF: Hold Lasix Dr Mix Problem List - Problems (1) Sleep apnea Code(s): G47.30 - SLEEP APNEA, UNSPECIFIED (2) Smoker Code(s): F17.200 - NICOTINE DEPENDENCE, UNSPECIFIED, UNCOMPLICATED (3) Rash and nonspecific skin eruption Code(s): R21 - RASH AND OTHER NONSPECIFIC SKIN ERUPTION (4) Morbid obesity Code(s): E66.01 - MORBID (SEVERE) OBESITY DUE TO EXCESS CALORIES (5) Dyspnea Code(s): R06.00 - DYSPNEA, UNSPECIFIED (6) Atelectasis of both lungs Code(s): J98.11 - ATELECTASIS (7) Acquired lymphedema of lower extremity Code(s): I89.0 - LYMPHEDEMA, NOT ELSEWHERE CLASSIFIED (8) Diabetes 1.5, managed as type 2 Code(s): E13.9 - OTHER SPECIFIED DIABETES MELLITUS WITHOUT COMPLICATIONS (9) Hyponatremia Code(s): E87.1 - HYPO-OSMOLALITY AND HYPONATREMIA
[2019-02-11] MEDS: NYSTATIN 500,000 UNITS/5 ML SUSPENSION PO SCH ×2 (12:49→17:41)
--- NOTE | 2019-02-11 13:08 | ECHO ---
Name: PRASHANT SCHWAB Exam:Adult Echocardiogram Study Date: 02/11/2019 11:44 AM Age: 53 yrs Reason For Study: ?CHF BNP Height: 64 in Weight: 365 lb BSA: 2.5 m2 MMode/2D Measurements & Calculations IVSd: 1.0 cm Ao root diam: 3.3 cm LVIDd: 4.9 cm LA dimension: 3.9 cm LVIDs: 3.1 cm LVPWd: 0.90 cm EDV(Teich): 112.2 ml LVOT diam: 2.3 cm ESV(Teich): 37.4 ml Doppler Measurements & Calculations MV E max lillian: 98.2 cm/sec Ao V2 max: 166.1 cm/sec MV A max lillian: 75.0 cm/sec Ao max P.0 mmHg MV E/A: 1.3 Ao V2 mean: 128.2 cm/sec MV dec time: 0.21 sec Ao mean P.0 mmHg Ao V2 VTI: 28.4 cm HERBERT(I,D): 3.1 cm2 HERBERT(V,D): 3.0 cm2 LV V1 max P.4 mmHg SV(LVOT): 89.0 ml LV V1 mean P.1 mmHg LV V1 max: 116.0 cm/sec LV V1 mean: 80.6 cm/sec LV V1 VTI: 21.0 cm Procedure There was technical limitations during this study due to patients body habitas. Left Ventricle The left ventricle is grossly normal size. Ejection Fraction = 55%. E/A reversal consistent with but not diagnostic of poor LV compliance. Regional wall motion abnormalities cannot be excluded due to limite d visualization. Right Ventricle The right ventricle is not well visualized. Atria Normal left and right atrial size and function. Mitral Valve The mitral valve is not well visualized. Tricuspid Valve The tricuspid valve is not well visualized. Aortic Valve The aortic valve is not well visualized. Pulmonic Valve The pulmonic valve is not well visualized. Great Vessels The aortic root is normal size. Pericardium/Pleura There is no pericardial effusion. There is no pleural effusion. Interpretation Summary There was technical limitations during this study due to patients body habitasThe left ventricle is g rossly normal size. Ejection Fraction = 55%. Regional wall motion abnormalities cannot be excluded due to limited visualization. . MD Jeff Botello 02/11/2019 01:08 PM
[2019-02-11 13:25] LABS: ANISOCYTOSIS 1+; MACROCYTOSIS 0; PLATELET ESTIMATE NORMAL
--- NOTE | 2019-02-11 13:59 | PN ---
Progress Note (short form) - Note Progress Note: stools improved, eating poorly, not hungry, no abdominal pain, no cough hands and feet are still itchy Vital Signs Period Temp Pulse Resp BP Sys/Montes De Oca Pulse Ox Last 24 Hr 98.7 F-100.8 F 84-104 18-23 113-134/60-86 96 cor-rrr lungs clear abd soft,nt, firm ext +edema palmar erythema feet no rash CBC, BMP 02/11/19 06:58 02/11/19 06:58 Microbiology 02/10/19 11:35 Stool Gram Stain - Final 02/10/19 11:35 Stool Salmonella/Shigella Culture - Preliminary NO ENTERIC PATHOGENS, 24 HOURS, ON PRIMARY PLATES 02/10/19 11:35 Stool Yersinia Culture - Preliminary NO ENTERIC PATHOGENS, 24 HOURS, ON PRIMARY PLATES 02/10/19 11:35 Stool Vibrio Culture - Final NO GROWTH OF VIBRIO SPECIES OBTAINED 02/10/19 11:35 Stool Escherichia coli 0157 Culture - Final NO GROWTH OF E COLI 0157 OBTAINED 02/10/19 07:30 Urine - Urine Clean Catch Urine Culture - Final NO GROWTH OBTAINED 02/10/19 01:42 Blood - Peripheral Venous Blood Culture - Preliminary NO GROWTH OBTAINED AFTER 24 HOURS, INCUBATION TO CONTINUE FOR 4 DAYS. 02/10/19 00:29 Blood - Peripheral Venous Blood Culture - Preliminary NO GROWTH OBTAINED AFTER 24 HOURS, INCUBATION TO CONTINUE FOR 4 DAYS. 02/10/19 11:35 Stool Clostridioides difficile Antigen - Final-negative 02/10/19 11:35 Stool Clostridioides difficile Toxin Assay - Final-negative 02/10/19 11:35 Urine For Antigen Detection Legionella Antigen - Final- negative 02/10/19 11:35 Urine For Antigen Detection Streptococcus pneumoniae Antigen (M - Final-negative a/p FUO-?gastroenteritis-diarrhea resolving still with itching hands and feet- ?medication related viral syndrome? repeat lfts d/c flagyl continue levaquin trend WBC f/u culturs Problem List - Problems (1) Fever Code(s): R50.9 - FEVER, UNSPECIFIED (2) Gastroenteritis Code(s): K52.9 - NONINFECTIVE GASTROENTERITIS AND COLITIS, UNSPECIFIED (3) Cough Code(s): R05 - COUGH (4) Rash and nonspecific skin eruption Code(s): R21 - RASH AND OTHER NONSPECIFIC SKIN ERUPTION (5) Abnormal LFTs Code(s): R94.5 - ABNORMAL RESULTS OF LIVER FUNCTION STUDIES (6) Hyponatremia Code(s): E87.1 - HYPO-OSMOLALITY AND HYPONATREMIA (7) Morbid obesity Code(s): E66.01 - MORBID (SEVERE) OBESITY DUE TO EXCESS CALORIES
[2019-02-11 15:02] LABS: ALBUMIN 3.4 g/dl (3.4-5.0); BILIRUBIN,DIRECT 0.1 mg/dL (0.0-0.2); BILIRUBIN,TOTAL 0.2 mg/dL (0.2-1); TOT PROT 7.4 g/dl (6.4-8.2)
--- NOTE | 2019-02-11 17:29 | CONSULT ---
Consult Consult Specialty:: Nephrology Reason for Consultation:: hyponatremia - History of Present Illness Chief Complaint: fever and cough History of Present Illness: Pt is a 53 year old female with pmhx of DM, CHF, HTN, obesity, and HLD who presented to the ER with cough and fever. She was found to be hyponatremic and I was called to evaluate her. She has poor outpt follow up. She was on lasix and metolozone as outpt. She also drinks about 4 liters of water per day. She has history of bariatric surgery. She complains of lower ext edema. She denies shortness of breath. She is not compliant with diet. She does not always take her meds. She denies chest pain. Pt also had nausea, vomiting and diarrhea. - History Source History Provided By: Patient, Medical Record - Past Medical History Cardio/Vascular: Yes: CAD, HTN Pulmonary: Yes: Other (orthopnea) Gastrointestinal: Yes: Other (s/p sleeve) ...LMP: 11/01/13 ...: No Musculoskeletal: Yes: Other (? lyphodema) Endocrine: Yes: Diabetes Mellitus - Past Surgical History Additional Surgical History: gastric sleeve 2011, myomectomy 2004 - Alcohol/Substance Use Hx Alcohol Use: Yes (OCC) History of Substance Use: reports: None - Smoking History Smoking history: Never smoked Have you smoked in the past 12 months: Yes Aproximately how many cigarettes per day: 5 - Social History Usual Living Arrangement: With Parent ADL: Independent History of Recent Travel: No Home Medications - Allergies Allergies/Adverse Reactions: Allergies Allergy/AdvReac Type Severity Reaction Status Date / Time cortisone [Cortisone] AdvReac Mild Rash Verified 02/10/19 00:27 - Home Medications Home Medications: Ambulatory Orders Bupropion HCl [Wellbutrin Xl -] 300 mg PO DAILY 11/28/13 Rabeprazole Sodium [Aciphex] 20 mg PO DAILY 11/28/13 Loperamide HCl [Imodium -] 2 mg PO PRN PRN 12/01/13 Family Disease History - Family Disease History Family Disease History: Other: Mother (dementia) Review of Systems - Review of Systems Constitutional: reports: Malaise Eyes: reports: No Symptoms HENT: reports: No Symptoms Neck: reports: No Symptoms Respiratory: reports: Cough Gastrointestinal: reports: No Symptoms Genitourinary: reports: No Symptoms Musculoskeletal: reports: No Symptoms Integumentary: reports: No Symptoms Neurological: reports: No Symptoms Endocrine: reports: No Symptoms Hematology/Lymphatic: reports: No Symptoms Psychiatric: reports: No Symptoms Physical Exam Vital Signs: Vital Signs Temperature 99.5 F 02/11/19 11:00 Pulse Rate 97 H 02/11/19 11:00 Respiratory Rate 20 02/11/19 11:00 Blood Pressure 116/60 02/11/19 11:00 O2 Sat by Pulse Oximetry (%) 96 02/10/19 21:00 Constitutional: Yes: Calm Eyes: Yes: Conjunctiva Clear HENT: Yes: Atraumatic Neck: Yes: Supple Cardiovascular: Yes: S1, S2 Respiratory: Yes: CTA Bilaterally Gastrointestinal: Yes: Soft, Abdomen, Obese Renal/: Yes: WNL Edema: Yes Edema: LLE: 2+, RLE: 2+ Integumentary: Yes: Venous Stasis Changes Neurological: Yes: Oriented Psychiatric: Yes: Oriented Labs: CBC, BMP 02/11/19 06:58 02/11/19 06:58 Laboratory Tests 02/10/19 02/10/19 02/10/19 01:42 03:07 07:30 WBC 4.5 Hgb 12.2 Plt Count 286 Sodium 126 L Potassium Chloride Creatinine 1.0 Serum Osmolality Ur Specific [place] 1.007 L Urine Protein Negative Urine Blood Negative Urine Osmolality Ur Random Sodium 02/10/19 02/10/19 02/10/19 11:35 11:55 23:50 WBC Hgb Plt Count Sodium Potassium Chloride Creatinine Serum Osmolality 268 L Ur Specific [place] Urine Protein Urine Blood Urine Osmolality 504 Ur Random Sodium < 18 L 02/11/19 02/11/19 06:58 06:58 WBC 2.5 L Hgb 11.4 Plt Count 290 Sodium 128 L Potassium 3.5 Chloride 84 L Creatinine 0.9 Serum Osmolality Ur Specific [place] Urine Protein Urine Blood Urine Osmolality Ur Random Sodium Imaging - Results Cat Scan: Report Reviewed Problem List - Problems (1) Hyponatremia Code(s): E87.1 - HYPO-OSMOLALITY AND HYPONATREMIA Assessment/Plan Current Medications Generic Name Dose Route Start Last Admin Trade Name Freq PRN Reason Stop Dose Admin Acetaminophen 650 mg 02/10/19 09:58 02/11/19 10:48 Tylenol - PO 650 mg Q4H PRN Administration FEVER Albuterol Sulfate 1 amp 02/10/19 11:12 Ventolin 0.083% Nebulizer Soln - NEB Q4H PRN SHORT OF BREATH/WHEEZING Albuterol/Ipratropium 1 amp 02/10/19 14:00 02/11/19 14:15 Duoneb - NEB 1 amp RTID [facility] Administration Aspirin 81 mg 02/11/19 10:00 02/11/19 10:47 Ecotrin - PO 81 mg DAILY [facility] Administration Bacitracin 1 applic 02/10/19 14:00 02/11/19 10:52 Bacitracin - TP 1 applic DAILY [facility] Administration Bupropion HCl 300 mg 02/10/19 10:00 02/11/19 10:48 Wellbutrin Xl - PO 300 mg DAILY [facility] Administration Carvedilol 6.25 mg 02/10/19 22:00 02/11/19 10:50 Coreg - PO 6.25 mg BID [facility] Administration Hydrocortisone 1 applic 02/11/19 11:05 Hytone 2.5% Lotion - TP BID PRN FOR ITCHING Levofloxacin 500 mg in 100 mls @ 100 mls/hr 02/10/19 10:45 02/11/19 10:48 Levaquin 500 Mg Premixed Ivpb - IVPB 100 mls/hr DAILY [facility] Administration Protocol Insulin Aspart 1 vial 02/10/19 16:30 02/11/19 11:21 Novolog Vial Sliding Scale - SQ Not Given ACHS [facility] Protocol Loperamide HCl 4 mg 02/10/19 09:55 Imodium - PO Q6H PRN DIARRHEA Nicotine 14 mg 02/11/19 10:00 02/11/19 11:00 Nicoderm Patch - TD 14 mg DAILY [facility] Administration Nystatin 500,000 units 02/11/19 12:00 02/11/19 12:49 Nystatin Oral Suspension - PO 500,000 units Q6HPO [facility] Administration Pantoprazole Sodium 40 mg 02/10/19 10:00 02/11/19 10:47 Protonix Iv IVPUSH 40 mg DAILY [facility] Administration Potassium Chloride 10 meq 02/11/19 10:00 02/11/19 10:52 K-Dur - PO 10 meq DAILY [facility] Administration Impression 1. hyponatremia 2. obesity 3. venous stasis 4. htn 5. DM 6. chf Plan - vomiting and diarrhea can explain hyponatremia, in the setting of metolazone and lasix - hold diuretics - restrict free water intake - encourage PO intake, can give broth as she says she is not eating much - cont to monitor sodium level - cardio input appreciated
[2019-02-12] MEDS: guaiFENesin/D-METHORPHAN HB 10 ML UNIT-DOSE CUPS PO PRN (00:35)
[2019-02-12] MEDS: ACETAMINOPHEN 325 MG TABLET (FP) PO PRN ×2 (04:43→09:25)
[2019-02-12] MEDS: INSULIN SLIDING SCALE (NOVOLOG) 1 VIAL SQ SCH ×4 (06:09→22:11)
[2019-02-12] MEDS: NYSTATIN 500,000 UNITS/5 ML SUSPENSION PO SCH ×4 (06:09→17:53)
[2019-02-12 08:00] LABS: ALBUMIN 3.3 g/dl (3.4-5.0); BILIRUBIN,TOTAL 0.3 mg/dL (0.2-1); BLOOD UREA NITROGEN 7.6 mg/dL (7-18); CREATININE 0.8 mg/dL (0.55-1.3); POTASSIUM 3.5 mmol/L (3.5-5.1); TOT PROT 7.2 g/dl (6.4-8.2)
[2019-02-12] MEDS: ALBUTEROL SO4 2.5/IPRATROPIUM 0.5 INH SOL 3 ML VIAL.NEB. NEB SCH ×3 (08:00→21:29)
[2019-02-12 08:17] LABS: BASO % 0.3 % (0-2.0); EOS % 3.7 % (0-4.5); HEMOGLOBIN 11.1 GM/dL (10.7-15.3); LYMPH % 14.6 % (8-40); MCHC 32.7 g/dl (32.0-36.0); MEAN CELL VOLUME 82.6 fl (80-96); MEAN PLT VOLUME 7.5 fl (7.5-11.1); MONO % 18.5 % (3.8-10.2); NEUT % 62.9 % (42.8-82.8); PLATELET COUNT 285 K/MM3 (134-434); RBC 4.11 M/mm3 (3.60-5.2); WHITE BLOOD COUNT 5.8 K/mm3 (4.0-10.0)
[2019-02-12] MEDS ORDERED: PT OWN MED DRAWER 7, Y5N ONE ×2 (09:16→11:06)
[2019-02-12] MEDS: NICOTINE 14 MG/24 HOURS TOPICAL PATCH TD SCH (09:23)
[2019-02-12] MEDS: CARVEDILOL 6.25 MG TABLET (FP) PO SCH ×2 (09:25→22:11)
[2019-02-12] MEDS: ASPIRIN COATED 81 MG TABLET.EC PO SCH (09:25)
[2019-02-12] MEDS: POTASSIUM CHLORIDE TABS 10 MEQ TABLET.ER (FP) PO SCH (09:25)
[2019-02-12] MEDS: PANTOPRAZOLE SODIUM 40 MG VIAL IVPUSH SCH ×2 (09:28→22:09)
[2019-02-12] MEDS: BACITRACIN 15 GM TUBE TOPICAL OINTMENT TP SCH (09:37)
[2019-02-12] MEDS ORDERED: chlordiazePOXIDE HCL 25 MG CAPSULE PO ONE (10:15)
[2019-02-12] MEDS ORDERED: INSULIN (NOVOLOG) ASPART 100 UNITS/ML 10ML VIAL ONE (11:05)
--- NOTE | 2019-02-12 12:22 | PN ---
Progress Note (short form) - Note Progress Note: abdominal pain diffuse lower abdomen and diarrhea today +ETOH history - Vital Signs Period Temp Pulse Resp BP Sys/Montes De Oca Pulse Ox Last 24 Hr 99.3 F-101.0 F 67-93 20-22 110-126/60-70 94 cor-rrr lungs decreased bs at bases abd firm, cannot palpate well due to obesity, c/o diffuse lower abdominal discomfort to deep palpation ext venous stasis CBC, BMP 02/12/19 06:22 02/12/19 06:22 Microbiology 02/10/19 11:35 Stool Gram Stain - Final 02/10/19 11:35 Stool Salmonella/Shigella Culture - Final NO GROWTH OF SALMONELLA OR SHIGELLA SPECIES OBTAINED 02/10/19 11:35 Stool Campylobacter Culture - Final NO GROWTH OF CAMPYLOBACTER SPECIES OBTAINED 02/10/19 11:35 Stool Yersinia Culture - Final NO GROWTH OF YERSINIA SPECIES OBTAINED 02/10/19 11:35 Stool Vibrio Culture - Final NO GROWTH OF VIBRIO SPECIES OBTAINED 02/10/19 11:35 Stool Escherichia coli 0157 Culture - Final NO GROWTH OF E COLI 0157 OBTAINED 02/10/19 01:42 Blood - Peripheral Venous Blood Culture - Preliminary NO GROWTH OBTAINED AFTER 48 HOURS, INCUBATION TO CONTINUE FOR 3 DAYS. 02/10/19 00:29 Blood - Peripheral Venous Blood Culture - Preliminary NO GROWTH OBTAINED AFTER 48 HOURS, INCUBATION TO CONTINUE FOR 3 DAYS. 02/10/19 07:30 Urine - Urine Clean Catch Urine Culture - Final NO GROWTH OBTAINED 02/10/19 11:35 Stool Clostridioides difficile Antigen - Final 02/10/19 11:35 Stool Clostridioides difficile Toxin Assay - Final 02/10/19 11:35 Urine For Antigen Detection Legionella Antigen - Final 02/10/19 11:35 Urine For Antigen Detection Streptococcus pneumoniae Antigen (M - Final a/p fevers- now with recurrent abdominal discomfort and diarrhea agree with GI evaluation, will order ct scan abd/pelvis still with itching hands and feet- ?medication related viral syndrome? repeat lfts improving hyponatremia- renal following continue levaquin/flagyl dw dr cali Problem List - Problems (1) Fever Code(s): R50.9 - FEVER, UNSPECIFIED (2) Gastroenteritis Code(s): K52.9 - NONINFECTIVE GASTROENTERITIS AND COLITIS, UNSPECIFIED (3) Cough Code(s): R05 - COUGH (4) Rash and nonspecific skin eruption Code(s): R21 - RASH AND OTHER NONSPECIFIC SKIN ERUPTION (5) Abnormal LFTs Code(s): R94.5 - ABNORMAL RESULTS OF LIVER FUNCTION STUDIES (6) Hyponatremia Code(s): E87.1 - HYPO-OSMOLALITY AND HYPONATREMIA (7) Morbid obesity Code(s): E66.01 - MORBID (SEVERE) OBESITY DUE TO EXCESS CALORIES
--- NOTE | 2019-02-12 13:03 | PN ---
Progress Note, Physician History of Present Illness: Pt seen and examined at bedside. She says that she was drinking alcohol daily. She is still having diarrhea. - Current Medication List Current Medications: Active Medications Acetaminophen (Tylenol -) 650 mg PO Q4H PRN PRN Reason: FEVER Last Admin: 02/12/19 09:25 Dose: 650 mg Albuterol Sulfate (Ventolin 0.083% Nebulizer Soln -) 1 amp NEB Q4H PRN PRN Reason: SHORT OF BREATH/WHEEZING Albuterol/Ipratropium (Duoneb -) 1 amp NEB RTID ELVIRA Last Admin: 02/12/19 08:00 Dose: 1 amp Aspirin (Ecotrin -) 81 mg PO DAILY EL[facility]A Last Admin: 02/12/19 09:25 Dose: 81 mg Bacitracin (Bacitracin -) 1 applic TP DAILY [facility] Last Admin: 02/12/19 09:37 Dose: 1 applic Bupropion HCl (Wellbutrin Xl -) 300 mg PO DAILY [facility]A Last Admin: 02/12/19 09:25 Dose: 300 mg Carvedilol (Coreg -) 6.25 mg PO BID ELV[facility]A Last Admin: 02/12/19 09:25 Dose: 6.25 mg Guaifenesin (Robitussin Dm -) 10 ml PO Q4H PRN PRN Reason: COUGH Last Admin: 02/12/19 00:35 Dose: 10 ml Hydrocortisone (Hytone 2.5% Lotion -) 1 applic TP BID PRN PRN Reason: FOR ITCHING Levofloxacin (Levaquin 500 Mg Premixed Ivpb -) 500 mg in 100 mls @ 100 mls/hr IVPB DAILY [facility]; Protocol Last Admin: 02/12/19 09:23 Dose: 100 mls/hr Metronidazole (Flagyl 500mg Premixed Ivpb -) 500 mg in 100 mls @ 100 mls/hr IVPB Q8H-IV [facility] Insulin Aspart (Novolog Vial Sliding Scale -) 1 vial SQ ACHS [facility]; Protocol Last Admin: 02/12/19 11:17 Dose: Not Given Loperamide HCl (Imodium -) 4 mg PO Q6H PRN PRN Reason: DIARRHEA Nicotine (Nicoderm Patch -) 14 mg TD DAILY [facility] Last Admin: 02/12/19 09:23 Dose: 14 mg Nystatin (Nystatin Oral Suspension -) 500,000 units PO Q6HPO ELVIRA Last Admin: 02/12/19 11:17 Dose: 500,000 units Pantoprazole Sodium (Protonix Iv) 40 mg IVPUSH DAILY EL[facility]A Last Admin: 02/12/19 09:28 Dose: 40 mg Potassium Chloride (K-Dur -) 10 meq PO DAILY EL[facility]A Last Admin: 02/12/19 09:25 Dose: 10 meq - Objective Vital Signs: Vital Signs Temperature 99.6 F 02/12/19 09:12 Pulse Rate 93 H 02/12/19 09:12 Respiratory Rate 20 02/12/19 09:12 Blood Pressure 110/60 02/12/19 09:12 O2 Sat by Pulse Oximetry (%) 94 L 02/11/19 21:00 Constitutional: Yes: Calm Eyes: Yes: Conjunctiva Clear HENT: Yes: Atraumatic Neck: Yes: Supple Cardiovascular: Yes: S1, S2 Respiratory: Yes: CTA Bilaterally Gastrointestinal: Yes: Soft, Abdomen, Obese Genitourinary: Yes: WNL Musculoskeletal: Yes: WNL Edema: Yes Edema: LLE: 1+, RLE: 1+ Neurological: Yes: Oriented Psychiatric: Yes: Oriented Labs: CBC, BMP 02/12/19 06:22 02/12/19 06:22 INR, PTT INR 1.01 (0.83-1.09) 02/10/19 01:42 Problem List - Problems (1) Hyponatremia Code(s): E87.1 - HYPO-OSMOLALITY AND HYPONATREMIA Assessment/Plan Current Medications Generic Name Dose Route Start Last Admin Trade Name Lazaroq PRN Reason Stop Dose Admin Acetaminophen 650 mg 02/10/19 09:58 02/12/19 09:25 Tylenol - PO 650 mg Q4H PRN Administration FEVER Albuterol Sulfate 1 amp 02/10/19 11:12 Ventolin 0.083% Nebulizer Soln - NEB Q4H PRN SHORT OF BREATH/WHEEZING Albuterol/Ipratropium 1 amp 02/10/19 14:00 02/12/19 08:00 Duoneb - NEB 1 amp RTID ELVIRA Administration Aspirin 81 mg 02/11/19 10:00 02/12/19 09:25 Ecotrin - PO 81 mg DAILY [facility] Administration Bacitracin 1 applic 02/10/19 14:00 02/12/19 09:37 Bacitracin - TP 1 applic DAILY [facility] Administration Bupropion HCl 300 mg 02/10/19 10:00 02/12/19 09:25 Wellbutrin Xl - PO 300 mg DAILY [facility] Administration Carvedilol 6.25 mg 02/10/19 22:00 02/12/19 09:25 Coreg - PO 6.25 mg BID [facility] Administration Guaifenesin 10 ml 02/12/19 00:23 02/12/19 00:35 Robitussin Dm - PO 10 ml Q4H PRN Administration COUGH Hydrocortisone 1 applic 02/11/19 11:05 Hytone 2.5% Lotion - TP BID PRN FOR ITCHING Levofloxacin 500 mg in 100 mls @ 100 mls/hr 02/10/19 10:45 02/12/19 09:23 Levaquin 500 Mg Premixed Ivpb - IVPB 100 mls/hr DAILY [facility] Administration Protocol Metronidazole 500 mg in 100 mls @ 100 mls/hr 02/12/19 12:15 Flagyl 500mg Premixed Ivpb - IVPB Q8H-IV [facility]A Insulin Aspart 1 vial 02/10/19 16:30 02/12/19 11:17 Novolog Vial Sliding Scale - SQ Not Given ACHS [facility] Protocol Loperamide HCl 4 mg 02/10/19 09:55 Imodium - PO Q6H PRN DIARRHEA Nicotine 14 mg 02/11/19 10:00 02/12/19 09:23 Nicoderm Patch - TD 14 mg DAILY [facility] Administration Nystatin 500,000 units 02/11/19 12:00 02/12/19 11:17 Nystatin Oral Suspension - PO 500,000 units Q6HPO [facility] Administration Pantoprazole Sodium 40 mg 02/10/19 10:00 02/12/19 09:28 Protonix Iv IVPUSH 40 mg DAILY [facility] Administration Potassium Chloride 10 meq 02/11/19 10:00 02/12/19 09:25 K-Dur - PO 10 meq DAILY EL[facility]IRA Administration Impression 1. hyponatremia 2. obesity 3. venous stasis 4. htn 5. DM 6. chf Plan - will start saline - monitor sodium - pt still with diarrhea, will get scan today - hold diuretics - LV grossly normal on echo - pt says that her appetite is improving
[2019-02-12] MEDS: SODIUM CHLORIDE 1,000 ML IV SCH (13:45)
--- NOTE | 2019-02-12 15:44 | PN ---
Progress Note (short form) - Note Progress Note: PULMONARY States breathing is better. No cough or wheezing. Febrile. Vital Signs Period Temp Pulse Resp BP Sys/Montes De Oca Pulse Ox Last 24 Hr 99.3 F-101.0 F 67-93 20-22 110-126/60-70 94 Gen: NAD in chair Heart: RRR Lung: decreased breath sounds at the bases Abd: soft, nontender Ext: + edema CBC, BMP 02/12/19 06:22 02/12/19 06:22 Active Medications Acetaminophen (Tylenol -) 650 mg PO Q4H PRN PRN Reason: FEVER Last Admin: 02/12/19 09:25 Dose: 650 mg Albuterol Sulfate (Ventolin 0.083% Nebulizer Soln -) 1 amp NEB Q4H PRN PRN Reason: SHORT OF BREATH/WHEEZING Albuterol/Ipratropium (Duoneb -) 1 amp NEB RTID ELVIRA Last Admin: 02/12/19 13:13 Dose: 1 amp Aspirin (Ecotrin -) 81 mg PO DAILY [facility] Last Admin: 02/12/19 09:25 Dose: 81 mg Bacitracin (Bacitracin -) 1 applic TP DAILY ELVIRA Last Admin: 02/12/19 09:37 Dose: 1 applic Bupropion HCl (Wellbutrin Xl -) 300 mg PO DAILY [facility] Last Admin: 02/12/19 09:25 Dose: 300 mg Carvedilol (Coreg -) 6.25 mg PO BID ELVIRA Last Admin: 02/12/19 09:25 Dose: 6.25 mg Guaifenesin (Robitussin Dm -) 10 ml PO Q4H PRN PRN Reason: COUGH Last Admin: 02/12/19 00:35 Dose: 10 ml Hydrocortisone (Hytone 2.5% Lotion -) 1 applic TP BID PRN PRN Reason: FOR ITCHING Levofloxacin (Levaquin 500 Mg Premixed Ivpb -) 500 mg in 100 mls @ 100 mls/hr IVPB DAILY [facility]; Protocol Last Admin: 02/12/19 09:23 Dose: 100 mls/hr Metronidazole (Flagyl 500mg Premixed Ivpb -) 500 mg in 100 mls @ 100 mls/hr IVPB Q8H-IV [facility] Last Admin: 02/12/19 13:15 Dose: 100 mls/hr Sodium Chloride (Normal Saline -) 1,000 mls @ 75 mls/hr IV ASDIR [facility] Last Admin: 02/12/19 13:45 Dose: 75 mls/hr Insulin Aspart (Novolog Vial Sliding Scale -) 1 vial SQ ACHS [facility]; Protocol Last Admin: 02/12/19 11:17 Dose: Not Given Loperamide HCl (Imodium -) 4 mg PO Q6H PRN PRN Reason: DIARRHEA Nicotine (Nicoderm Patch -) 14 mg TD DAILY [facility] Last Admin: 02/12/19 09:23 Dose: 14 mg Nystatin (Nystatin Oral Suspension -) 500,000 units PO Q6HPO ELV[facility]A Last Admin: 02/12/19 11:17 Dose: 500,000 units Pantoprazole Sodium (Protonix Iv) 40 mg IVPUSH DAILY [facility] Last Admin: 02/12/19 09:28 Dose: 40 mg Potassium Chloride (K-Dur -) 10 meq PO DAILY [facility] Last Admin: 02/12/19 09:25 Dose: 10 meq A/P Hyponatremia Morbid Obesity SANDRA/OHS Hypoxia HTN DM - NS per renal - on empiric antibiotics per ID - O2 to keep Spo2 >90% - demonstrated how to use her CPAP - DVT prophylaxis
--- NOTE | 2019-02-12 17:59 | CON.GI ---
Consult Consult Specialty:: GI Referred by:: Dr Bennie Mckeon - History of Present Illness History of Present Illness: 53 y/o F with PMH of gastric sleeve 2011, Morbid obesity, DM was admitted because of Fever, diarrhea, abdominal pain and SOB. SHe was started on Levaquin and Flagyl wiht partia relief of her symptome. She has persistent nausea and poor appetite. - Past Medical History Cardio/Vascular: Yes: CAD, HTN Pulmonary: Yes: Other (orthopnea) Gastrointestinal: Yes: Other (s/p sleeve) ...LMP: 11/01/13 ...: No Musculoskeletal: Yes: Other (? lyphodema) Endocrine: Yes: Diabetes Mellitus - Past Surgical History Additional Surgical History: gastric sleeve 2011, myomectomy 2004 - Alcohol/Substance Use Hx Alcohol Use: Yes (OCC) History of Substance Use: reports: None - Smoking History Smoking history: Never smoked Have you smoked in the past 12 months: Yes Aproximately how many cigarettes per day: 5 - Social History Usual Living Arrangement: With Parent ADL: Independent History of Recent Travel: No Home Medications - Allergies Allergies/Adverse Reactions: Allergies Allergy/AdvReac Type Severity Reaction Status Date / Time cortisone [Cortisone] AdvReac Mild Rash Verified 02/10/19 00:27 - Home Medications Home Medications: Ambulatory Orders Bupropion HCl [Wellbutrin Xl -] 300 mg PO DAILY 11/28/13 Rabeprazole Sodium [Aciphex] 20 mg PO DAILY 11/28/13 Loperamide HCl [Imodium -] 2 mg PO PRN PRN 12/01/13 Family Disease History - Family Disease History Family Disease History: Other: Mother (dementia) Review of Systems - Review of Systems Constitutional: reports: Fever Eyes: reports: No Symptoms HENT: reports: No Symptoms Neck: reports: No Symptoms Cardiovascular: reports: No Symptoms Respiratory: reports: SOB Gastrointestinal: reports: Abdominal Pain, Bloating, Diarrhea. denies: Melena, Nausea, Rectal Bleeding, Vomiting, Vomiting Blood Genitourinary: reports: No Symptoms Breasts: reports: No Symptoms Reported Physical Exam-GI Vital Signs: Vital Signs Temperature 99.6 F 02/12/19 09:12 Pulse Rate 93 H 02/12/19 09:12 Respiratory Rate 20 02/12/19 09:12 Blood Pressure 110/60 02/12/19 09:12 O2 Sat by Pulse Oximetry (%) 100 02/12/19 09:00 Constitutional: Yes: Obese Eyes: Yes: Conjunctiva Clear HENT: Yes: Atraumatic Neck: Yes: Supple Cardiovascular: Yes: Regular Rate and Rhythm Respiratory: Yes: CTA Bilaterally ...Palpate: Yes: Soft. No: Firm/Rigid, Guarding, Hepatomegaly, Mass, Pulsatile Mass, Splenomegaly, Tenderness, Tenderness, Epigastium Labs: CBC, BMP 02/12/19 06:22 02/12/19 06:22 INR, PTT INR 1.01 (0.83-1.09) 02/10/19 01:42 Home Medications Medication Instructions Recorded Bupropion HCl [Wellbutrin Xl -] 300 mg PO DAILY 11/28/13 Rabeprazole Sodium [Aciphex] 20 mg PO DAILY 11/28/13 Loperamide HCl [Imodium -] 2 mg PO PRN PRN 12/01/13 Home Medication List Medication Instructions Recorded Confirmed Type Bupropion HCl [Wellbutrin Xl -] 300 mg PO DAILY 11/28/13 02/10/19 History Rabeprazole Sodium [Aciphex] 20 mg PO DAILY 11/28/13 02/10/19 History Loperamide HCl [Imodium -] 2 mg PO PRN PRN 12/01/13 02/10/19 History Active Medications Generic Name Dose Route Start Last Admin Trade Name Freq PRN Reason Stop Dose Admin Acetaminophen 650 mg 02/10/19 09:58 02/12/19 09:25 Tylenol - PO 650 mg Q4H PRN Administration FEVER Albuterol Sulfate 1 amp 02/10/19 11:12 Ventolin 0.083% Nebulizer Soln - NEB Q4H PRN SHORT OF BREATH/WHEEZING Albuterol/Ipratropium 1 amp 02/10/19 14:00 02/12/19 13:13 Duoneb - NEB 1 amp RTID ELVIRA Administration Aspirin 81 mg 02/11/19 10:00 02/12/19 09:25 Ecotrin - PO 81 mg DAILY [facility] Administration Bacitracin 1 applic 02/10/19 14:00 02/12/19 09:37 Bacitracin - TP 1 applic DAILY [facility] Administration Bupropion HCl 300 mg 02/10/19 10:00 02/12/19 09:25 Wellbutrin Xl - PO 300 mg DAILY [facility] Administration Carvedilol 6.25 mg 02/10/19 22:00 02/12/19 09:25 Coreg - PO 6.25 mg BID EL[facility]A Administration Guaifenesin 10 ml 02/12/19 00:23 02/12/19 00:35 Robitussin Dm - PO 10 ml Q4H PRN Administration COUGH Hydrocortisone 1 applic 02/11/19 11:05 Hytone 2.5% Lotion - TP BID PRN FOR ITCHING Levofloxacin 500 mg in 100 mls @ 100 mls/hr 02/10/19 10:45 02/12/19 09:23 Levaquin 500 Mg Premixed Ivpb - IVPB 100 mls/hr DAILY [facility] Administration Protocol Metronidazole 500 mg in 100 mls @ 100 mls/hr 02/12/19 12:15 02/12/19 13:15 Flagyl 500mg Premixed Ivpb - IVPB 100 mls/hr Q8H-IV [facility] Administration Sodium Chloride 1,000 mls @ 75 mls/hr 02/12/19 13:15 02/12/19 13:45 Normal Saline - IV 75 mls/hr ASDIR [facility] Administration Insulin Aspart 1 vial 02/10/19 16:30 02/12/19 17:51 Novolog Vial Sliding Scale - SQ Not Given ACHS [facility] Protocol Loperamide HCl 4 mg 02/10/19 09:55 Imodium - PO Q6H PRN DIARRHEA Nicotine 14 mg 02/11/19 10:00 02/12/19 09:23 Nicoderm Patch - TD 14 mg DAILY [facility] Administration Nystatin 500,000 units 02/11/19 12:00 02/12/19 17:53 Nystatin Oral Suspension - PO 500,000 units Q6HPO [facility] Administration Pantoprazole Sodium 40 mg 02/10/19 10:00 02/12/19 09:28 Protonix Iv IVPUSH 40 mg DAILY [facility] Administration Potassium Chloride 10 meq 02/11/19 10:00 02/12/19 09:25 K-Dur - PO 10 meq DAILY [facility] Administration Problem List - Problems (1) Gastroenteritis Assessment/Plan: R> low fiber lactose free diet continue Levaquin and Flagyl--consider Ceftriaxone if ok with ID IV Reglan and Zofran, Pantoprazole Code(s): K52.9 - NONINFECTIVE GASTROENTERITIS AND COLITIS, UNSPECIFIED
[2019-02-12] MEDS: METOCLOPRAMIDE HCL INJECTION 10 MG/2 ML VIAL IVPB SCH (18:25)
[2019-02-12 21:51] VITALS: BMI 63.5
[2019-02-12] MEDS ORDERED: PANTOPRAZOLE SODIUM 40 MG in SODIUM CHLORIDE 100 ML IVPB SCH (22:00)
[2019-02-13] MEDS: METOCLOPRAMIDE HCL INJECTION 10 MG/2 ML VIAL IVPB SCH ×3 (02:00→17:55)
[2019-02-13] MEDS: NYSTATIN 500,000 UNITS/5 ML SUSPENSION PO SCH ×4 (06:28→17:55)
[2019-02-13] MEDS: INSULIN SLIDING SCALE (NOVOLOG) 1 VIAL SQ SCH ×4 (06:30→21:04)
[2019-02-13] MEDS: ALBUTEROL SO4 2.5/IPRATROPIUM 0.5 INH SOL 3 ML VIAL.NEB. NEB SCH ×3 (08:05→21:05)
[2019-02-13 08:25] LABS: BASO % 1.3 % (0-2.0); EOS % 6.9 % (0-4.5); HEMATOCRIT 34.8 % (32.4-45.2); HEMOGLOBIN 11.2 GM/dL (10.7-15.3); LYMPH % 21.2 % (8-40); MCH 26.8 pg (25.7-33.7); MCHC 32.1 g/dl (32.0-36.0); MEAN CELL VOLUME 83.3 fl (80-96); MEAN PLT VOLUME 7.7 fl (7.5-11.1); MONO % 23.2 % (3.8-10.2); NEUT % 47.4 % (42.8-82.8); PLATELET COUNT 289 K/MM3 (134-434); RBC 4.17 M/mm3 (3.60-5.2); RDW 18.6 % (11.6-15.6); WHITE BLOOD COUNT 6.7 K/mm3 (4.0-10.0)
[2019-02-13 08:34] LABS: ALBUMIN 3.1 g/dl (3.4-5.0); BILIRUBIN,TOTAL 0.4 mg/dL (0.2-1); BLOOD UREA NITROGEN 6.1 mg/dL (7-18); CALCIUM 8.1 mg/dL (8.5-10.1); CREATININE 0.8 mg/dL (0.55-1.3); POTASSIUM 3.6 mmol/L (3.5-5.1); TOT PROT 7.1 g/dl (6.4-8.2)
[2019-02-13] MEDS ORDERED: PT OWN MED DRAWER 7, Y5N ONE (10:02)
[2019-02-13] MEDS: SODIUM CHLORIDE 1,000 ML IV SCH (10:13)
[2019-02-13] MEDS: BACITRACIN 15 GM TUBE TOPICAL OINTMENT TP SCH (10:36)
[2019-02-13] MEDS: POTASSIUM CHLORIDE TABS 10 MEQ TABLET.ER (FP) PO SCH (10:36)
[2019-02-13] MEDS: PANTOPRAZOLE SODIUM 40 MG VIAL IVPUSH SCH ×3 (10:36→21:11)
[2019-02-13] MEDS: ASPIRIN COATED 81 MG TABLET.EC PO SCH (10:36)
[2019-02-13] MEDS: CARVEDILOL 6.25 MG TABLET (FP) PO SCH ×2 (10:36→21:05)
[2019-02-13] MEDS: NICOTINE 14 MG/24 HOURS TOPICAL PATCH TD SCH (10:36)
[2019-02-13] MEDS ORDERED: DIPHENOXYLATE 2.5/ATROPINE.025 1 COMBO TABLET PO PRN (10:57)
--- NOTE | 2019-02-13 10:57 | PN ---
Progress Note, Physician Chief Complaint: less loose bm tolerating dietsince last night ok to shower less abd pain scale 2 oob na up wbc nl now less shifting lt ct appreciated reglan helping w what ever stomach she has left - Current Medication List Current Medications: Active Medications Acetaminophen (Tylenol -) 650 mg PO Q4H PRN PRN Reason: FEVER Last Admin: 02/12/19 09:25 Dose: 650 mg Albuterol Sulfate (Ventolin 0.083% Nebulizer Soln -) 1 amp NEB Q4H PRN PRN Reason: SHORT OF BREATH/WHEEZING Albuterol/Ipratropium (Duoneb -) 1 amp NEB RTID [facility] Last Admin: 02/13/19 08:05 Dose: 1 amp Aspirin (Ecotrin -) 81 mg PO DAILY [facility] Last Admin: 02/13/19 10:36 Dose: 81 mg Bacitracin (Bacitracin -) 1 applic TP DAILY [facility] Last Admin: 02/13/19 10:36 Dose: 1 applic Bupropion HCl (Wellbutrin Xl -) 300 mg PO DAILY [facility] Last Admin: 02/13/19 10:36 Dose: 300 mg Carvedilol (Coreg -) 6.25 mg PO BID [facility] Last Admin: 02/13/19 10:36 Dose: 6.25 mg Guaifenesin (Robitussin Dm -) 10 ml PO Q4H PRN PRN Reason: COUGH Last Admin: 02/12/19 00:35 Dose: 10 ml Hydrocortisone (Hytone 2.5% Lotion -) 1 applic TP BID PRN PRN Reason: FOR ITCHING Levofloxacin (Levaquin 500 Mg Premixed Ivpb -) 500 mg in 100 mls @ 100 mls/hr IVPB DAILY [facility]; Protocol Last Admin: 02/13/19 10:18 Dose: 100 mls/hr Metronidazole (Flagyl 500mg Premixed Ivpb -) 500 mg in 100 mls @ 100 mls/hr IVPB Q8H-IV [facility] Last Admin: 02/13/19 10:17 Dose: 100 mls/hr Sodium Chloride (Normal Saline -) 1,000 mls @ 75 mls/hr IV ASDIR [facility] Last Admin: 02/13/19 10:13 Dose: 75 mls/hr Insulin Aspart (Novolog Vial Sliding Scale -) 1 vial SQ ACHS [facility]; Protocol Last Admin: 02/13/19 06:30 Dose: Not Given Loperamide HCl (Imodium -) 4 mg PO Q6H PRN PRN Reason: DIARRHEA Metoclopramide HCl (Reglan Injection -) 10 mg IVPB Q8H [facility] Last Admin: 02/13/19 10:23 Dose: 10 mg Nicotine (Nicoderm Patch -) 14 mg TD DAILY [facility] Last Admin: 02/13/19 10:36 Dose: 14 mg Nystatin (Nystatin Oral Suspension -) 500,000 units PO Q6HPO [facility] Last Admin: 02/13/19 06:28 Dose: 500,000 units Pantoprazole Sodium (Protonix Iv) 40 mg IVPUSH DAILY [facility] Last Admin: 02/13/19 10:36 Dose: 40 mg Pantoprazole Sodium (Protonix Iv) 40 mg IVPUSH BID [facility] Last Admin: 02/13/19 10:37 Dose: Not Given Potassium Chloride (K-Dur -) 10 meq PO DAILY [facility] Last Admin: 02/13/19 10:36 Dose: 10 meq - Objective Vital Signs: Vital Signs Temperature 99.2 F 02/13/19 06:11 Pulse Rate 94 H 02/13/19 06:11 Respiratory Rate 20 02/13/19 06:11 Blood Pressure 110/67 02/13/19 06:11 O2 Sat by Pulse Oximetry (%) 98 02/12/19 21:00 Constitutional: Yes: No Distress Eyes: Yes: WNL HENT: Yes: WNL Neck: Yes: WNL Cardiovascular: Yes: WNL Respiratory: Yes: WNL Gastrointestinal: Yes: WNL ...Rectal Exam: Yes: WNL Genitourinary: Yes: WNL Breast(s): Yes: WNL Musculoskeletal: Yes: WNL Extremities: Yes: Other (no change) Edema: Yes Edema: LLE: 2+, RLE: 2+ Peripheral Pulses WNL: Yes Integumentary: Yes: WNL Neurological: Yes: WNL ...Motor Strength: WNL Psychiatric: Yes: WNL Labs: CBC, BMP 02/13/19 07:45 02/13/19 07:45 INR, PTT INR 1.01 (0.83-1.09) 02/10/19 01:42 Problem List - Problems (1) Acquired lymphedema of lower extremity Code(s): I89.0 - LYMPHEDEMA, NOT ELSEWHERE CLASSIFIED (2) Diabetes 1.5, managed as type 2 Code(s): E13.9 - OTHER SPECIFIED DIABETES MELLITUS WITHOUT COMPLICATIONS (3) Gastroenteritis Code(s): K52.9 - NONINFECTIVE GASTROENTERITIS AND COLITIS, UNSPECIFIED Assessment/Plan cont tx as is change to lomotil stop imodium
[2019-02-13 13:10] LABS: ANISOCYTOSIS 1+; MACROCYTOSIS 0; PLATELET ESTIMATE NORMAL; TARGET CELLS 1+
--- NOTE | 2019-02-13 13:37 | PN ---
Progress Note (short form) - Note Progress Note: PULMONARY Did not use her CPAP last night. Denies shortness of breath or wheezing. Vital Signs Period Temp Pulse Resp BP Sys/[place]ca Pulse Ox Last 24 Hr 98.7 F-99.7 F 80-94 20-20 110-130/60-70 98 Gen: NAD in chair Heart: RRR Lung: decreased breath sounds at the bases Abd: soft, nontender Ext: + edema CBC, BMP 02/13/19 07:45 02/13/19 07:45 Active Medications Acetaminophen (Tylenol -) 650 mg PO Q4H PRN PRN Reason: FEVER Last Admin: 02/12/19 09:25 Dose: 650 mg Albuterol Sulfate (Ventolin 0.083% Nebulizer Soln -) 1 amp NEB Q4H PRN PRN Reason: SHORT OF BREATH/WHEEZING Albuterol/Ipratropium (Duoneb -) 1 amp NEB RTID [facility] Last Admin: 02/13/19 08:05 Dose: 1 amp Aspirin (Ecotrin -) 81 mg PO DAILY [facility] Last Admin: 02/13/19 10:36 Dose: 81 mg Bacitracin (Bacitracin -) 1 applic TP DAILY [facility] Last Admin: 02/13/19 10:36 Dose: 1 applic Bupropion HCl (Wellbutrin Xl -) 300 mg PO DAILY [facility] Last Admin: 02/13/19 10:36 Dose: 300 mg Carvedilol (Coreg -) 6.25 mg PO BID [facility] Last Admin: 02/13/19 10:36 Dose: 6.25 mg Diphenoxylate HCl/Atropine (Lomotil -) 1 combo PO Q8H PRN PRN Reason: DIARRHEA Guaifenesin (Robitussin Dm -) 10 ml PO Q4H PRN PRN Reason: COUGH Last Admin: 02/12/19 00:35 Dose: 10 ml Hydrocortisone (Hytone 2.5% Lotion -) 1 applic TP BID PRN PRN Reason: FOR ITCHING Levofloxacin (Levaquin 500 Mg Premixed Ivpb -) 500 mg in 100 mls @ 100 mls/hr IVPB DAILY [facility]; Protocol Last Admin: 02/13/19 10:18 Dose: 100 mls/hr Metronidazole (Flagyl 500mg Premixed Ivpb -) 500 mg in 100 mls @ 100 mls/hr IVPB Q8H-IV [facility] Last Admin: 02/13/19 10:17 Dose: 100 mls/hr Sodium Chloride (Normal Saline -) 1,000 mls @ 75 mls/hr IV ASDIR [facility] Last Admin: 02/13/19 10:13 Dose: 75 mls/hr Insulin Aspart (Novolog Vial Sliding Scale -) 1 vial SQ ACHS [facility]; Protocol Last Admin: 02/13/19 06:30 Dose: Not Given Metoclopramide HCl (Reglan Injection -) 10 mg IVPB Q8H [facility] Last Admin: 02/13/19 10:23 Dose: 10 mg Nicotine (Nicoderm Patch -) 14 mg TD DAILY [facility] Last Admin: 02/13/19 10:36 Dose: 14 mg Nystatin (Nystatin Oral Suspension -) 500,000 units PO Q6HPO [facility] Last Admin: 02/13/19 06:28 Dose: 500,000 units Pantoprazole Sodium (Protonix Iv) 40 mg IVPUSH DAILY [facility] Last Admin: 02/13/19 10:36 Dose: 40 mg Pantoprazole Sodium (Protonix Iv) 40 mg IVPUSH BID [facility] Last Admin: 02/13/19 10:37 Dose: Not Given Potassium Chloride (K-Dur -) 10 meq PO DAILY [facility] Last Admin: 02/13/19 10:36 Dose: 10 meq A/P Hyponatremia Morbid Obesity [facility]DRA/OHS Hypoxia HTN DM - NS per renal - on empiric antibiotics per ID - O2 to keep Spo2 >90% - CPAP at night - DVT prophylaxis
[2019-02-13] MEDS ORDERED: SODIUM CHLORIDE 1,000 ML IV SCH (14:59)
--- NOTE | 2019-02-13 14:59 | PN ---
Progress Note, Physician History of Present Illness: Pt seen and examined at bedside. She is awake and alert. She still complains of diarrhea. She however feels that her appetite is improved. - Current Medication List Current Medications: Active Medications Acetaminophen (Tylenol -) 650 mg PO Q4H PRN PRN Reason: FEVER Last Admin: 02/12/19 09:25 Dose: 650 mg Albuterol Sulfate (Ventolin 0.083% Nebulizer Soln -) 1 amp NEB Q4H PRN PRN Reason: SHORT OF BREATH/WHEEZING Albuterol/Ipratropium (Duoneb -) 1 amp NEB RTID [facility] Last Admin: 02/13/19 08:05 Dose: 1 amp Aspirin (Ecotrin -) 81 mg PO DAILY [facility] Last Admin: 02/13/19 10:36 Dose: 81 mg Bacitracin (Bacitracin -) 1 applic TP DAILY [facility] Last Admin: 02/13/19 10:36 Dose: 1 applic Bupropion HCl (Wellbutrin Xl -) 300 mg PO DAILY [facility] Last Admin: 02/13/19 10:36 Dose: 300 mg Carvedilol (Coreg -) 6.25 mg PO BID [facility] Last Admin: 02/13/19 10:36 Dose: 6.25 mg Diphenoxylate HCl/Atropine (Lomotil -) 1 combo PO Q8H PRN PRN Reason: DIARRHEA Guaifenesin (Robitussin Dm -) 10 ml PO Q4H PRN PRN Reason: COUGH Last Admin: 02/12/19 00:35 Dose: 10 ml Hydrocortisone (Hytone 2.5% Lotion -) 1 applic TP BID PRN PRN Reason: FOR ITCHING Levofloxacin (Levaquin 500 Mg Premixed Ivpb -) 500 mg in 100 mls @ 100 mls/hr IVPB DAILY [facility]; Protocol Last Admin: 02/13/19 10:18 Dose: 100 mls/hr Metronidazole (Flagyl 500mg Premixed Ivpb -) 500 mg in 100 mls @ 100 mls/hr IVPB Q8H-IV [facility] Last Admin: 02/13/19 10:17 Dose: 100 mls/hr Sodium Chloride (Normal Saline -) 1,000 mls @ 75 mls/hr IV ASDIR [facility] Last Admin: 02/13/19 10:13 Dose: 75 mls/hr Insulin Aspart (Novolog Vial Sliding Scale -) 1 vial SQ ACHS [facility]; Protocol Last Admin: 02/13/19 06:30 Dose: Not Given Metoclopramide HCl (Reglan Injection -) 10 mg IVPB Q8H [facility] Last Admin: 02/13/19 10:23 Dose: 10 mg Nicotine (Nicoderm Patch -) 14 mg TD DAILY [facility] Last Admin: 02/13/19 10:36 Dose: 14 mg Nystatin (Nystatin Oral Suspension -) 500,000 units PO Q6HPO [facility] Last Admin: 02/13/19 06:28 Dose: 500,000 units Pantoprazole Sodium (Protonix Iv) 40 mg IVPUSH DAILY [facility] Last Admin: 02/13/19 10:36 Dose: 40 mg Pantoprazole Sodium (Protonix Iv) 40 mg IVPUSH BID [facility] Last Admin: 02/13/19 10:37 Dose: Not Given Potassium Chloride (K-Dur -) 10 meq PO DAILY [facility] Last Admin: 02/13/19 10:36 Dose: 10 meq - Objective Vital Signs: Vital Signs Temperature 98.7 F 02/13/19 10:00 Pulse Rate 91 H 02/13/19 10:00 Respiratory Rate 20 02/13/19 10:00 Blood Pressure 118/60 02/13/19 10:00 O2 Sat by Pulse Oximetry (%) 98 02/13/19 09:00 Constitutional: Yes: Calm Eyes: Yes: Conjunctiva Clear HENT: Yes: Atraumatic Neck: Yes: Supple Cardiovascular: Yes: S1, S2 Respiratory: Yes: CTA Bilaterally Gastrointestinal: Yes: Normal Bowel Sounds, Soft Genitourinary: Yes: WNL Musculoskeletal: Yes: WNL Edema: Yes Edema: LLE: 1+, RLE: 1+ Integumentary: Yes: Venous Stasis Changes Neurological: Yes: Oriented Psychiatric: Yes: Oriented Labs: CBC, BMP 02/13/19 07:45 02/13/19 07:45 INR, PTT INR 1.01 (0.83-1.09) 02/10/19 01:42 Problem List - Problems (1) Hyponatremia Code(s): E87.1 - HYPO-OSMOLALITY AND HYPONATREMIA Assessment/Plan Current Medications Generic Name Dose Route Start Last Admin Trade Name Freq PRN Reason Stop Dose Admin Acetaminophen 650 mg 02/10/19 09:58 02/12/19 09:25 Tylenol - PO 650 mg Q4H PRN Administration FEVER Albuterol Sulfate 1 amp 02/10/19 11:12 Ventolin 0.083% Nebulizer Soln - NEB Q4H PRN SHORT OF BREATH/WHEEZING Albuterol/Ipratropium 1 amp 02/10/19 14:00 02/13/19 08:05 Duoneb - NEB 1 amp RTID [facility] Administration Aspirin 81 mg 02/11/19 10:00 02/13/19 10:36 Ecotrin - PO 81 mg DAILY [facility] Administration Bacitracin 1 applic 02/10/19 14:00 02/13/19 10:36 Bacitracin - TP 1 applic DAILY [facility] Administration Bupropion HCl 300 mg 02/10/19 10:00 02/13/19 10:36 Wellbutrin Xl - PO 300 mg DAILY [facility] Administration Carvedilol 6.25 mg 02/10/19 22:00 02/13/19 10:36 Coreg - PO 6.25 mg BID [facility] Administration Diphenoxylate HCl/Atropine 1 combo 02/13/19 10:57 Lomotil - PO Q8H PRN [facility] Guaifenesin 10 ml 02/12/19 00:23 02/12/19 00:35 Robitussin Dm - PO 10 ml Q4H PRN Administration COUGH Hydrocortisone 1 applic 02/11/19 11:05 Hytone 2.5% Lotion - TP BID PRN FOR ITCHING Levofloxacin 500 mg in 100 mls @ 100 mls/hr 02/10/19 10:45 02/13/19 10:18 Levaquin 500 Mg Premixed Ivpb - IVPB 100 mls/hr DAILY [facility] Administration Protocol Metronidazole 500 mg in 100 mls @ 100 mls/hr 02/12/19 12:15 02/13/19 10:17 Flagyl 500mg Premixed Ivpb - IVPB 100 mls/hr Q8H-IV [facility] Administration Sodium Chloride 1,000 mls @ 75 mls/hr 02/12/19 13:15 02/13/19 10:13 Normal Saline - IV 75 mls/hr ASDIR [facility] Administration Insulin Aspart 1 vial 02/10/19 16:30 02/13/19 06:30 Novolog Vial Sliding Scale - SQ Not Given ACHS [facility] Protocol Metoclopramide HCl 10 mg 02/12/19 18:15 02/13/19 10:23 Reglan Injection - IVPB 10 mg Q8H [facility] Administration Nicotine 14 mg 02/11/19 10:00 02/13/19 10:36 Nicoderm Patch - TD 14 mg DAILY [facility] Administration Nystatin 500,000 units 02/11/19 12:00 02/13/19 06:28 Nystatin Oral Suspension - PO 500,000 units Q6HPO [facility] Administration Pantoprazole Sodium 40 mg 02/10/19 10:00 02/13/19 10:36 Protonix Iv IVPUSH 40 mg DAILY [facility] Administration Pantoprazole Sodium 40 mg 02/12/19 22:00 02/13/19 10:37 Protonix Iv IVPUSH Not Given BID [facility] Potassium Chloride 10 meq 02/11/19 10:00 02/13/19 10:36 K-Dur - PO 10 meq DAILY [facility] Administration Impression 1. hyponatremia 2. obesity 3. venous stasis 4. htn 5. DM 6. chf Plan - sodium is improving - cont saline, will decrease rate - pt asking for regular diet - she still has diarrhea - hold diuretics - LV grossly normal on echo
--- NOTE | 2019-02-13 16:37 | PN ---
Progress Note (short form) - Note Progress Note: feeling much better able to eat now Vital Signs Period Temp Pulse Resp BP Sys/[place]ca Pulse Ox Last 24 Hr 98.7 F-99.7 F 80-94 20-20 110-130/60-70 98-98 cor-rrr lungs clear, decreased bs at bases abd firm, nt ext venous stasis CBC, BMP 02/13/19 07:45 02/13/19 07:45 Microbiology 02/10/19 01:42 Blood - Peripheral Venous Blood Culture - Preliminary NO GROWTH OBTAINED AFTER 72 HOURS, INCUBATION TO CONTINUE FOR 2 DAYS. 02/10/19 00:29 Blood - Peripheral Venous Blood Culture - Preliminary NO GROWTH OBTAINED AFTER 72 HOURS, INCUBATION TO CONTINUE FOR 2 DAYS. 02/10/19 11:35 Stool Gram Stain - Final 02/10/19 11:35 Stool Salmonella/Shigella Culture - Final NO GROWTH OF SALMONELLA OR SHIGELLA SPECIES OBTAINED 02/10/19 11:35 Stool Campylobacter Culture - Final NO GROWTH OF CAMPYLOBACTER SPECIES OBTAINED 02/10/19 11:35 Stool Yersinia Culture - Final NO GROWTH OF YERSINIA SPECIES OBTAINED 02/10/19 11:35 Stool Vibrio Culture - Final NO GROWTH OF VIBRIO SPECIES OBTAINED 02/10/19 11:35 Stool Escherichia coli 0157 Culture - Final NO GROWTH OF E COLI 0157 OBTAINED 02/10/19 07:30 Urine - Urine Clean Catch Urine Culture - Final NO GROWTH OBTAINED 02/10/19 11:35 Stool Clostridioides difficile Antigen - Final 02/10/19 11:35 Stool Clostridioides difficile Toxin Assay - Final 02/10/19 11:35 Urine For Antigen Detection Legionella Antigen - Final 02/10/19 11:35 Urine For Antigen Detection Streptococcus pneumoniae Antigen (M - Final ct scan no acute pathology noted, fatty liver with hepatomegaly a/p fevers resolving cultures and scans normal rash resolving will d/c antibioitcs and observe s/p 4 days levaquin/flagyl d/w Dr Castañeda Problem List - Problems (1) Fever Code(s): R50.9 - FEVER, UNSPECIFIED (2) Gastroenteritis Code(s): K52.9 - NONINFECTIVE GASTROENTERITIS AND COLITIS, UNSPECIFIED (3) Cough Code(s): R05 - COUGH (4) Rash and nonspecific skin eruption Code(s): R21 - RASH AND OTHER NONSPECIFIC SKIN ERUPTION (5) Abnormal LFTs Code(s): R94.5 - ABNORMAL RESULTS OF LIVER FUNCTION STUDIES (6) Hyponatremia Code(s): E87.1 - HYPO-OSMOLALITY AND HYPONATREMIA (7) Morbid obesity Code(s): E66.01 - MORBID (SEVERE) OBESITY DUE TO EXCESS CALORIES
--- NOTE | 2019-02-13 17:01 | PN.GI ---
GI Progress Note Subjective: abdominal pain and diarrhea is imrpoved, still with low grade temps - Objective Vital Signs: Vital Signs Temperature 98.7 F 02/13/19 10:00 Pulse Rate 91 H 02/13/19 10:00 Respiratory Rate 20 02/13/19 10:00 Blood Pressure 118/60 02/13/19 10:00 O2 Sat by Pulse Oximetry (%) 98 02/13/19 09:00 Constitutional: Well Nourished, Obese Eyes: Yes: Conjunctiva Clear HENT: Yes: Atraumatic, Tonsillar Exudate Cardiovascular: Yes: Regular Rate and Rhythm Respiratory: Yes: CTA Bilaterally ...Palpate: Yes: Soft. No: Firm/Rigid, Guarding, Hepatomegaly, Mass, Pulsatile Mass, Splenomegaly, Tenderness, Tenderness, Epigastium Labs: CBC, BMP 02/13/19 07:45 02/13/19 07:45 INR, PTT INR 1.01 (0.83-1.09) 02/10/19 01:42 Problem List - Problems (1) Gastroenteritis Assessment/Plan: --resolving R> continue IV Flagyl start Ceftriaxone stool c and S and c diff Code(s): K52.9 - NONINFECTIVE GASTROENTERITIS AND COLITIS, UNSPECIFIED
[2019-02-13] MEDS: guaiFENesin/D-METHORPHAN HB 10 ML UNIT-DOSE CUPS PO PRN (21:05)
[2019-02-14] MEDS: NYSTATIN 500,000 UNITS/5 ML SUSPENSION PO SCH ×4 (00:05→18:25)
[2019-02-14] MEDS: METOCLOPRAMIDE HCL INJECTION 10 MG/2 ML VIAL IVPB SCH (02:31)
[2019-02-14] MEDS: INSULIN SLIDING SCALE (NOVOLOG) 1 VIAL SQ SCH ×4 (06:10→22:36)
[2019-02-14] MEDS: ALBUTEROL SO4 2.5/IPRATROPIUM 0.5 INH SOL 3 ML VIAL.NEB. NEB SCH ×3 (06:40→19:40)
[2019-02-14 07:27] LABS: ALBUMIN 3.2 g/dl (3.4-5.0); BILIRUBIN,TOTAL 0.3 mg/dL (0.2-1); BLOOD UREA NITROGEN 6.8 mg/dL (7-18); CREATININE 0.7 mg/dL (0.55-1.3); POTASSIUM 3.7 mmol/L (3.5-5.1)
--- NOTE | 2019-02-14 08:20 | PN ---
Progress Note, Physician History of Present Illness: GI FOLLOW UP NOTE Patient examined and case discussed with Dr Castañeda Patient states having 4 episodes of diarrhea this morning with mild rectal bleeding noted. Denies nausea, vomiting, abdominal pain, melena. - Current Medication List Current Medications: Active Medications Acetaminophen (Tylenol -) 650 mg PO Q4H PRN PRN Reason: FEVER Last Admin: 02/12/19 09:25 Dose: 650 mg Albuterol Sulfate (Ventolin 0.083% Nebulizer Soln -) 1 amp NEB Q4H PRN PRN Reason: SHORT OF BREATH/WHEEZING Albuterol/Ipratropium (Duoneb -) 1 amp NEB RTID [facility] Last Admin: 02/13/19 21:05 Dose: 1 amp Aspirin (Ecotrin -) 81 mg PO DAILY [facility] Last Admin: 02/13/19 10:36 Dose: 81 mg Bacitracin (Bacitracin -) 1 applic TP DAILY [facility] Last Admin: 02/13/19 10:36 Dose: 1 applic Bupropion HCl (Wellbutrin Xl -) 300 mg PO DAILY [facility] Last Admin: 02/13/19 10:36 Dose: 300 mg Carvedilol (Coreg -) 6.25 mg PO BID [facility] Last Admin: 02/13/19 21:05 Dose: 6.25 mg Diphenoxylate HCl/Atropine (Lomotil -) 1 combo PO Q8H PRN PRN Reason: DIARRHEA Guaifenesin (Robitussin Dm -) 10 ml PO Q4H PRN PRN Reason: COUGH Last Admin: 02/13/19 21:05 Dose: 10 ml Hydrocortisone (Hytone 2.5% Lotion -) 1 applic TP BID PRN PRN Reason: FOR ITCHING Sodium Chloride (Normal Saline -) 1,000 mls @ 60 mls/hr IV ASDIR [facility] Last Admin: 02/13/19 17:55 Dose: 60 mls/hr Insulin Aspart (Novolog Vial Sliding Scale -) 1 vial SQ ACHS [facility]; Protocol Last Admin: 02/14/19 06:10 Dose: Not Given Nicotine (Nicoderm Patch -) 14 mg TD DAILY [facility] Last Admin: 02/13/19 10:36 Dose: 14 mg Nystatin (Nystatin Oral Suspension -) 500,000 units PO Q6HPO [facility] Last Admin: 02/14/19 06:10 Dose: 500,000 units Pantoprazole Sodium (Protonix Iv) 40 mg IVPUSH BID [facility] Last Admin: 02/13/19 21:11 Dose: 40 mg Potassium Chloride (K-Dur -) 10 meq PO DAILY [facility] Last Admin: 02/13/19 10:36 Dose: 10 meq - Objective Vital Signs: Vital Signs Temperature 98.2 F 02/14/19 06:58 Pulse Rate 51 L 02/14/19 06:58 Respiratory Rate 20 02/14/19 06:58 Blood Pressure 132/63 02/14/19 06:58 O2 Sat by Pulse Oximetry (%) 98 02/13/19 21:00 Constitutional: Yes: No Distress, Calm Eyes: Yes: Conjunctiva Clear HENT: Yes: Atraumatic Cardiovascular: Yes: Regular Rate and Rhythm Respiratory: Yes: Regular, CTA Bilaterally Gastrointestinal: Yes: Normal Bowel Sounds, Soft, Abdomen, Obese Neurological: Yes: Alert, Oriented Psychiatric: Yes: Alert, Oriented Labs: CBC, BMP 02/13/19 07:45 02/14/19 06:10 INR, PTT INR 1.01 (0.83-1.09) 02/10/19 01:42 Problem List - Problems (1) Gastroenteritis Assessment/Plan: -IV hydration -tolerating regular diet -pantoprazole -Reglan discontinued -as per ID observe off antibiotics Code(s): K52.9 - NONINFECTIVE GASTROENTERITIS AND COLITIS, UNSPECIFIED
[2019-02-14] MEDS ORDERED: PT OWN MED DRAWER 7, Y5N ONE ×2 (09:07→12:52)
[2019-02-14] MEDS: CARVEDILOL 6.25 MG TABLET (FP) PO SCH ×2 (09:14→22:19)
[2019-02-14] MEDS: BACITRACIN 15 GM TUBE TOPICAL OINTMENT TP SCH (09:14)
[2019-02-14] MEDS: POTASSIUM CHLORIDE TABS 10 MEQ TABLET.ER (FP) PO SCH (09:14)
[2019-02-14] MEDS: ASPIRIN COATED 81 MG TABLET.EC PO SCH (09:14)
[2019-02-14] MEDS: NICOTINE 14 MG/24 HOURS TOPICAL PATCH TD SCH (09:14)
[2019-02-14] MEDS: PANTOPRAZOLE SODIUM 40 MG VIAL IVPUSH SCH ×2 (09:15→22:21)
--- NOTE | 2019-02-14 12:24 | PN ---
Problem List - Problems (1) Fever Code(s): R50.9 - FEVER, UNSPECIFIED (2) Gastroenteritis Code(s): K52.9 - NONINFECTIVE GASTROENTERITIS AND COLITIS, UNSPECIFIED (3) Cough Code(s): R05 - COUGH (4) Rash and nonspecific skin eruption Code(s): R21 - RASH AND OTHER NONSPECIFIC SKIN ERUPTION (5) Abnormal LFTs Code(s): R94.5 - ABNORMAL RESULTS OF LIVER FUNCTION STUDIES (6) Hyponatremia Code(s): E87.1 - HYPO-OSMOLALITY AND HYPONATREMIA (7) Morbid obesity Code(s): E66.01 - MORBID (SEVERE) OBESITY DUE TO EXCESS CALORIES
[2019-02-14] MEDS ORDERED: SODIUM CHLORIDE 1,000 ML IV SCH (12:55)
--- NOTE | 2019-02-14 12:55 | PN ---
Progress Note, Physician History of Present Illness: Pt seen and examined at bedside. She is awake and alert. She still complains of diarrhea. - Current Medication List Current Medications: Active Medications Acetaminophen (Tylenol -) 650 mg PO Q4H PRN PRN Reason: FEVER Last Admin: 02/12/19 09:25 Dose: 650 mg Albuterol Sulfate (Ventolin 0.083% Nebulizer Soln -) 1 amp NEB Q4H PRN PRN Reason: SHORT OF BREATH/WHEEZING Albuterol/Ipratropium (Duoneb -) 1 amp NEB RTID [facility] Last Admin: 02/14/19 06:40 Dose: 1 amp Aspirin (Ecotrin -) 81 mg PO DAILY [facility] Last Admin: 02/14/19 09:14 Dose: 81 mg Bacitracin (Bacitracin -) 1 applic TP DAILY [facility] Last Admin: 02/14/19 09:14 Dose: 1 applic Bupropion HCl (Wellbutrin Xl -) 300 mg PO DAILY [facility] Last Admin: 02/14/19 09:14 Dose: Not Given Carvedilol (Coreg -) 6.25 mg PO BID [facility] Last Admin: 02/14/19 09:14 Dose: 6.25 mg Diphenoxylate HCl/Atropine (Lomotil -) 1 combo PO Q8H PRN PRN Reason: DIARRHEA Guaifenesin (Robitussin Dm -) 10 ml PO Q4H PRN PRN Reason: COUGH Last Admin: 02/13/19 21:05 Dose: 10 ml Hydrocortisone (Hytone 2.5% Lotion -) 1 applic TP BID PRN PRN Reason: FOR ITCHING Sodium Chloride (Normal Saline -) 1,000 mls @ 60 mls/hr IV ASDIR [facility] Last Admin: 02/13/19 17:55 Dose: 60 mls/hr Insulin Aspart (Novolog Vial Sliding Scale -) 1 vial SQ ACHS [facility]; Protocol Last Admin: 02/14/19 11:30 Dose: Not Given Nicotine (Nicoderm Patch -) 14 mg TD DAILY [facility] Last Admin: 02/14/19 09:14 Dose: 14 mg Nystatin (Nystatin Oral Suspension -) 500,000 units PO Q6HPO [facility] Last Admin: 02/14/19 06:10 Dose: 500,000 units Pantoprazole Sodium (Protonix Iv) 40 mg IVPUSH BID [facility] Last Admin: 02/14/19 09:15 Dose: 40 mg Potassium Chloride (K-Dur -) 10 meq PO DAILY [facility] Last Admin: 02/14/19 09:14 Dose: 10 meq - Objective Vital Signs: Vital Signs Temperature 97.9 F 02/14/19 09:31 Pulse Rate 83 02/14/19 09:31 Respiratory Rate 20 02/14/19 09:31 Blood Pressure 144/89 02/14/19 09:31 O2 Sat by Pulse Oximetry (%) 98 02/13/19 21:00 Constitutional: Yes: Calm Eyes: Yes: Conjunctiva Clear HENT: Yes: Atraumatic Neck: Yes: Supple Cardiovascular: Yes: S1, S2 Respiratory: Yes: CTA Bilaterally Gastrointestinal: Yes: Soft, Abdomen, Obese Genitourinary: Yes: WNL Musculoskeletal: Yes: WNL Edema: Yes Edema: LLE: 1+, RLE: 1+ Integumentary: Yes: Venous Stasis Changes Neurological: Yes: Oriented Psychiatric: Yes: Oriented Labs: CBC, BMP 02/13/19 07:45 02/14/19 06:10 INR, PTT INR 1.01 (0.83-1.09) 02/10/19 01:42 Problem List - Problems (1) Hyponatremia Code(s): E87.1 - HYPO-OSMOLALITY AND HYPONATREMIA Assessment/Plan Current Medications Generic Name Dose Route Start Last Admin Trade Name Freq PRN Reason Stop Dose Admin Acetaminophen 650 mg 02/10/19 09:58 02/12/19 09:25 Tylenol - PO 650 mg Q4H PRN Administration FEVER Albuterol Sulfate 1 amp 02/10/19 11:12 Ventolin 0.083% Nebulizer Soln - NEB Q4H PRN SHORT OF BREATH/WHEEZING Albuterol/Ipratropium 1 amp 02/10/19 14:00 02/14/19 06:40 Duoneb - NEB 1 amp RTID ELVIRA Administration Aspirin 81 mg 02/11/19 10:00 02/14/19 09:14 Ecotrin - PO 81 mg DAILY ELVIRA Administration Bacitracin 1 applic 02/10/19 14:00 02/14/19 09:14 Bacitracin - TP 1 applic DAILY ELVIRA Administration Bupropion HCl 300 mg 02/10/19 10:00 02/14/19 09:14 Wellbutrin Xl - PO Not Given DAILY ELVIRA Carvedilol 6.25 mg 02/10/19 22:00 02/14/19 09:14 Coreg - PO 6.25 mg BID ELVIRA Administration Diphenoxylate HCl/Atropine 1 combo 02/13/19 10:57 Lomotil - PO Q8H PRN DIARRHEA Guaifenesin 10 ml 02/12/19 00:23 02/13/19 21:05 Robitussin Dm - PO 10 ml Q4H PRN Administration COUGH Hydrocortisone 1 applic 02/11/19 11:05 Hytone 2.5% Lotion - TP BID PRN FOR ITCHING Sodium Chloride 1,000 mls @ 60 mls/hr 02/13/19 14:59 02/13/19 17:55 Normal Saline - IV 60 mls/hr ASDIR ELVIRA Administration Insulin Aspart 1 vial 02/10/19 16:30 02/14/19 11:30 Novolog Vial Sliding Scale - SQ Not Given ACHS ELVIRA Protocol Nicotine 14 mg 02/11/19 10:00 02/14/19 09:14 Nicoderm Patch - TD 14 mg DAILY ELVIRA Administration Nystatin 500,000 units 02/11/19 12:00 02/14/19 06:10 Nystatin Oral Suspension - PO 500,000 units Q6HPO ELVIRA Administration Pantoprazole Sodium 40 mg 02/12/19 22:00 02/14/19 09:15 Protonix Iv IVPUSH 40 mg BID ELVIRA Administration Potassium Chloride 10 meq 02/11/19 10:00 02/14/19 09:14 K-Dur - PO 10 meq DAILY ELVIRA Administration Impression 1. hyponatremia hypo-osmolar 2. obesity 3. venous stasis 4. htn 5. DM 6. chf Plan - sodium continues to improve - will cont saline for now, can decrease rate - repeat labs in am - pt still with diarrhea - hold diuretics - LV grossly normal on echo
--- NOTE | 2019-02-14 12:57 | PN ---
Progress Note, Physician History of Present Illness: states loose bm still na better wbc ok ambulation withot 02 ghk sat ? d/c ns d/c reglan? p/t to see pt ?d/c am or sunday - Current Medication List Current Medications: Active Medications Acetaminophen (Tylenol -) 650 mg PO Q4H PRN PRN Reason: FEVER Last Admin: 02/12/19 09:25 Dose: 650 mg Albuterol Sulfate (Ventolin 0.083% Nebulizer Soln -) 1 amp NEB Q4H PRN PRN Reason: SHORT OF BREATH/WHEEZING Albuterol/Ipratropium (Duoneb -) 1 amp NEB RTID [facility] Last Admin: 02/14/19 06:40 Dose: 1 amp Aspirin (Ecotrin -) 81 mg PO DAILY [facility] Last Admin: 02/14/19 09:14 Dose: 81 mg Bacitracin (Bacitracin -) 1 applic TP DAILY [facility] Last Admin: 02/14/19 09:14 Dose: 1 applic Bupropion HCl (Wellbutrin Xl -) 300 mg PO DAILY [facility] Last Admin: 02/14/19 09:14 Dose: Not Given Carvedilol (Coreg -) 6.25 mg PO BID [facility] Last Admin: 02/14/19 09:14 Dose: 6.25 mg Diphenoxylate HCl/Atropine (Lomotil -) 1 combo PO Q8H PRN PRN Reason: DIARRHEA Guaifenesin (Robitussin Dm -) 10 ml PO Q4H PRN PRN Reason: COUGH Last Admin: 02/13/19 21:05 Dose: 10 ml Hydrocortisone (Hytone 2.5% Lotion -) 1 applic TP BID PRN PRN Reason: FOR ITCHING Sodium Chloride (Normal Saline -) 1,000 mls @ 60 mls/hr IV ASDIR [facility] Last Admin: 02/13/19 17:55 Dose: 60 mls/hr Insulin Aspart (Novolog Vial Sliding Scale -) 1 vial SQ ACHS [facility]; Protocol Last Admin: 02/14/19 11:30 Dose: Not Given Nicotine (Nicoderm Patch -) 14 mg TD DAILY [facility] Last Admin: 02/14/19 09:14 Dose: 14 mg Nystatin (Nystatin Oral Suspension -) 500,000 units PO Q6HPO [facility] Last Admin: 02/14/19 06:10 Dose: 500,000 units Pantoprazole Sodium (Protonix Iv) 40 mg IVPUSH BID [facility] Last Admin: 02/14/19 09:15 Dose: 40 mg Potassium Chloride (K-Dur -) 10 meq PO DAILY [facility] Last Admin: 02/14/19 09:14 Dose: 10 meq - Objective Vital Signs: Vital Signs Temperature 97.9 F 02/14/19 09:31 Pulse Rate 83 02/14/19 09:31 Respiratory Rate 20 02/14/19 09:31 Blood Pressure 144/89 02/14/19 09:31 O2 Sat by Pulse Oximetry (%) 98 02/13/19 21:00 Labs: CBC, BMP 02/13/19 07:45 02/14/19 06:10 INR, PTT INR 1.01 (0.83-1.09) 02/10/19 01:42 Problem List - Problems (1) Acquired lymphedema of lower extremity Code(s): I89.0 - LYMPHEDEMA, NOT ELSEWHERE CLASSIFIED (2) Diabetes 1.5, managed as type 2 Code(s): E13.9 - OTHER SPECIFIED DIABETES MELLITUS WITHOUT COMPLICATIONS (3) Gastroenteritis Code(s): K52.9 - NONINFECTIVE GASTROENTERITIS AND COLITIS, UNSPECIFIED
--- NOTE | 2019-02-14 13:35 | PN ---
Progress Note (short form) - Note Progress Note: fevers resolved no nausea couldn't sleep after reglan last night diarrhea this am - ?reglan no trouble eating now no abdominal pain no sob Vital Signs Period Temp Pulse Resp BP Sys/[place] Pulse Ox Last 24 Hr 97.9 F-99.0 F 51-90 19-20 116-144/60-89 98 cor-rrr lungs decresed bs at bases abd soft,, nt ext venous stasis changes CBC, BMP 02/13/19 07:45 02/14/19 06:10 Microbiology 02/10/19 01:42 Blood - Peripheral Venous Blood Culture - Preliminary NO GROWTH OBTAINED AFTER 96 HOURS, INCUBATION TO CONTINUE FOR 1 DAYS. 02/10/19 00:29 Blood - Peripheral Venous Blood Culture - Preliminary NO GROWTH OBTAINED AFTER 96 HOURS, INCUBATION TO CONTINUE FOR 1 DAYS. 02/10/19 11:35 Stool Gram Stain - Final 02/10/19 11:35 Stool Salmonella/Shigella Culture - Final NO GROWTH OF SALMONELLA OR SHIGELLA SPECIES OBTAINED 02/10/19 11:35 Stool Campylobacter Culture - Final NO GROWTH OF CAMPYLOBACTER SPECIES OBTAINED 02/10/19 11:35 Stool Yersinia Culture - Final NO GROWTH OF YERSINIA SPECIES OBTAINED 02/10/19 11:35 Stool Vibrio Culture - Final NO GROWTH OF VIBRIO SPECIES OBTAINED 02/10/19 11:35 Stool Escherichia coli 0157 Culture - Final NO GROWTH OF E COLI 0157 OBTAINED 02/10/19 07:30 Urine - Urine Clean Catch Urine Culture - Final NO GROWTH OBTAINED 02/10/19 11:35 Stool Clostridioides difficile Antigen - Final 02/10/19 11:35 Stool Clostridioides difficile Toxin Assay - Final 02/10/19 11:35 Urine For Antigen Detection Legionella Antigen - Final 02/10/19 11:35 Urine For Antigen Detection Streptococcus pneumoniae Antigen (M - Final ct scan no acute pathology noted, fatty liver with hepatomegaly a/p fevers resolved cultures and scans normal rash resolving d/c reglan please call back if needed Problem List - Problems (1) Fever Code(s): R50.9 - FEVER, UNSPECIFIED (2) Gastroenteritis Code(s): K52.9 - NONINFECTIVE GASTROENTERITIS AND COLITIS, UNSPECIFIED (3) Cough Code(s): R05 - COUGH (4) Rash and nonspecific skin eruption Code(s): R21 - RASH AND OTHER NONSPECIFIC SKIN ERUPTION (5) Abnormal LFTs Code(s): R94.5 - ABNORMAL RESULTS OF LIVER FUNCTION STUDIES (6) Hyponatremia Code(s): E87.1 - HYPO-OSMOLALITY AND HYPONATREMIA (7) Morbid obesity Code(s): E66.01 - MORBID (SEVERE) OBESITY DUE TO EXCESS CALORIES
--- NOTE | 2019-02-14 14:33 | PN ---
Progress Note, Physician History of Present Illness: pulmonary alert,comfortable oob-chair,-sob at rest + rossi - Current Medication List Current Medications: Active Medications Acetaminophen (Tylenol -) 650 mg PO Q4H PRN PRN Reason: FEVER Last Admin: 02/12/19 09:25 Dose: 650 mg Albuterol Sulfate (Ventolin 0.083% Nebulizer Soln -) 1 amp NEB Q4H PRN PRN Reason: SHORT OF BREATH/WHEEZING Albuterol/Ipratropium (Duoneb -) 1 amp NEB RTID [facility] Last Admin: 02/14/19 14:28 Dose: 1 amp Aspirin (Ecotrin -) 81 mg PO DAILY [facility] Last Admin: 02/14/19 09:14 Dose: 81 mg Bacitracin (Bacitracin -) 1 applic TP DAILY [facility] Last Admin: 02/14/19 09:14 Dose: 1 applic Bupropion HCl (Wellbutrin Xl -) 300 mg PO DAILY [facility] Last Admin: 02/14/19 09:14 Dose: Not Given Carvedilol (Coreg -) 6.25 mg PO BID [facility] Last Admin: 02/14/19 09:14 Dose: 6.25 mg Diphenoxylate HCl/Atropine (Lomotil -) 1 combo PO Q8H PRN PRN Reason: DIARRHEA Guaifenesin (Robitussin Dm -) 10 ml PO Q4H PRN PRN Reason: COUGH Last Admin: 02/13/19 21:05 Dose: 10 ml Hydrocortisone (Hytone 2.5% Lotion -) 1 applic TP BID PRN PRN Reason: FOR ITCHING Sodium Chloride (Normal Saline -) 1,000 mls @ 42 mls/hr IV ASDIR [facility] Last Admin: 02/14/19 13:53 Dose: 42 mls/hr Insulin Aspart (Novolog Vial Sliding Scale -) 1 vial SQ ACHS [facility]; Protocol Last Admin: 02/14/19 11:30 Dose: Not Given Nicotine (Nicoderm Patch -) 14 mg TD DAILY [facility] Last Admin: 02/14/19 09:14 Dose: 14 mg Nystatin (Nystatin Oral Suspension -) 500,000 units PO Q6HPO [facility] Last Admin: 02/14/19 12:30 Dose: Not Given Pantoprazole Sodium (Protonix Iv) 40 mg IVPUSH BID [facility] Last Admin: 02/14/19 09:15 Dose: 40 mg Potassium Chloride (K-Dur -) 10 meq PO DAILY [facility] Last Admin: 02/14/19 09:14 Dose: 10 meq - Objective Vital Signs: Vital Signs Temperature 97.9 F 02/14/19 09:31 Pulse Rate 83 02/14/19 09:31 Respiratory Rate 20 02/14/19 09:31 Blood Pressure 144/89 02/14/19 09:31 O2 Sat by Pulse Oximetry (%) 97 02/14/19 09:00 Constitutional: Yes: Calm, Obese Eyes: Yes: WNL HENT: Yes: WNL Neck: Yes: WNL Cardiovascular: Yes: Regular Rate and Rhythm, S1, S2 Respiratory: Yes: CTA Bilaterally Gastrointestinal: Yes: Normal Bowel Sounds, Soft Extremities: Yes: WNL Edema: Yes Labs: CBC, BMP 02/13/19 07:45 02/14/19 06:10 INR, PTT INR 1.01 (0.83-1.09) 02/10/19 01:42 Problem List - Problems (1) Acquired lymphedema of lower extremity Code(s): I89.0 - LYMPHEDEMA, NOT ELSEWHERE CLASSIFIED (2) Diabetes 1.5, managed as type 2 Code(s): E13.9 - OTHER SPECIFIED DIABETES MELLITUS WITHOUT COMPLICATIONS (3) Dyspnea Code(s): R06.00 - DYSPNEA, UNSPECIFIED (4) Hyponatremia Code(s): E87.1 - HYPO-OSMOLALITY AND HYPONATREMIA (5) Morbid obesity Code(s): E66.01 - MORBID (SEVERE) OBESITY DUE TO EXCESS CALORIES (6) Sleep apnea Code(s): G47.30 - SLEEP APNEA, UNSPECIFIED (7) Smoker Code(s): F17.200 - NICOTINE DEPENDENCE, UNSPECIFIED, UNCOMPLICATED Assessment/Plan A/P Hyponatremia improving Morbid Obesity SANDRA/OHS Hypoxia HTN DM - NS per renal - on empiric antibiotics per ID - O2 to keep Spo2 >90% - CPAP at night - DVT prophylaxis - consider bariatric surgey evaluation DR CURRY
--- NOTE | 2019-02-14 17:09 | PN.GI ---
GI Progress Note Subjective: diarrhea and nausea resolved,able to tolerate diet, developed nervousness with Reglan IV - Objective Vital Signs: Vital Signs Temperature 98.3 F 02/14/19 15:11 Pulse Rate 89 02/14/19 15:38 Respiratory Rate 20 02/14/19 09:31 Blood Pressure 144/89 02/14/19 09:31 O2 Sat by Pulse Oximetry (%) 94 L 02/14/19 15:38 Constitutional: Well Nourished Eyes: Yes: Conjunctiva Clear HENT: Yes: Atraumatic Neck: Yes: Supple Cardiovascular: Yes: Regular Rate and Rhythm Gastrointestinal Inspection: Yes: Distention ...Auscultate: Yes: Normoactive Bowel Sounds ...Palpate: Yes: Soft. No: Firm/Rigid, Guarding, Hepatomegaly, Mass, Pulsatile Mass, Splenomegaly, Tenderness, Tenderness, Epigastium Labs: CBC, BMP 02/13/19 07:45 02/14/19 06:10 INR, PTT INR 1.01 (0.83-1.09) 02/10/19 01:42 Problem List - Problems (1) Gastroenteritis Assessment/Plan: --resolved R> observe for further episodes of diarrhea low fiber lactose free diet Code(s): K52.9 - NONINFECTIVE GASTROENTERITIS AND COLITIS, UNSPECIFIED
[2019-02-15] MEDS: ACETAMINOPHEN 325 MG TABLET (FP) PO PRN ×2 (02:04→10:40)
[2019-02-15] MEDS: NYSTATIN 500,000 UNITS/5 ML SUSPENSION PO SCH ×3 (02:05→13:07)
[2019-02-15] MEDS: INSULIN SLIDING SCALE (NOVOLOG) 1 VIAL SQ SCH ×2 (06:32→11:40)
[2019-02-15] MEDS: ALBUTEROL SO4 2.5/IPRATROPIUM 0.5 INH SOL 3 ML VIAL.NEB. NEB SCH (08:00)
[2019-02-15 08:15] LABS: BLOOD UREA NITROGEN 5.2 mg/dL (7-18); CALCIUM 8.4 mg/dL (8.5-10.1); CREATININE 0.7 mg/dL (0.55-1.3)
[2019-02-15] MEDS ORDERED: INSULIN (NOVOLOG) ASPART 100 UNITS/ML 10ML VIAL ONE (10:30)
[2019-02-15] MEDS ORDERED: PT OWN MED DRAWER 7, Y5N ONE (10:30)
[2019-02-15] MEDS: CARVEDILOL 6.25 MG TABLET (FP) PO SCH (10:38)
[2019-02-15] MEDS: POTASSIUM CHLORIDE TABS 10 MEQ TABLET.ER (FP) PO SCH (10:38)
[2019-02-15] MEDS: ASPIRIN COATED 81 MG TABLET.EC PO SCH (10:38)
[2019-02-15] MEDS: NICOTINE 14 MG/24 HOURS TOPICAL PATCH TD SCH (10:39)
[2019-02-15] MEDS: PANTOPRAZOLE SODIUM 40 MG VIAL IVPUSH SCH (10:42)
[2019-02-15] MEDS: BACITRACIN 15 GM TUBE TOPICAL OINTMENT TP SCH (10:45)
--- NOTE | 2019-02-15 11:52 | PN ---
Progress Note, Physician History of Present Illness: pulmonary alert,oob-chair,less dyspneic - Current Medication List Current Medications: Active Medications Acetaminophen (Tylenol -) 650 mg PO Q4H PRN PRN Reason: FEVER Last Admin: 02/15/19 10:40 Dose: 650 mg Albuterol/Ipratropium (Duoneb -) 1 amp NEB RTID [facility] Last Admin: 02/15/19 08:00 Dose: 1 amp Aspirin (Ecotrin -) 81 mg PO DAILY [facility] Last Admin: 02/15/19 10:38 Dose: 81 mg Bacitracin (Bacitracin -) 1 applic TP DAILY [facility] Last Admin: 02/15/19 10:45 Dose: 1 applic Bupropion HCl (Wellbutrin Xl -) 300 mg PO DAILY [facility] Last Admin: 02/15/19 10:38 Dose: Not Given Carvedilol (Coreg -) 6.25 mg PO BID [facility] Last Admin: 02/15/19 10:38 Dose: 6.25 mg Diphenoxylate HCl/Atropine (Lomotil -) 1 combo PO Q8H PRN PRN Reason: DIARRHEA Last Admin: 02/15/19 05:20 Dose: 1 combo Guaifenesin (Robitussin Dm -) 10 ml PO Q4H PRN PRN Reason: COUGH Last Admin: 02/13/19 21:05 Dose: 10 ml Hydrocortisone (Hytone 2.5% Lotion -) 1 applic TP BID PRN PRN Reason: FOR ITCHING Sodium Chloride (Normal Saline -) 1,000 mls @ 42 mls/hr IV ASDIR [facility] Last Admin: 02/14/19 13:53 Dose: 42 mls/hr Insulin Aspart (Novolog Vial Sliding Scale -) 1 vial SQ ACHS [facility]; Protocol Last Admin: 02/15/19 11:40 Dose: Not Given Nicotine (Nicoderm Patch -) 14 mg TD DAILY [facility] Last Admin: 02/15/19 10:39 Dose: 14 mg Nystatin (Nystatin Oral Suspension -) 500,000 units PO Q6HPO [facility] Last Admin: 02/15/19 05:19 Dose: 500,000 units Pantoprazole Sodium (Protonix Iv) 40 mg IVPUSH BID [facility] Last Admin: 02/15/19 10:42 Dose: 40 mg Potassium Chloride (K-Dur -) 10 meq PO DAILY [facility] Last Admin: 02/15/19 10:38 Dose: 10 meq - Objective Vital Signs: Vital Signs Temperature 97.9 F 02/15/19 09:00 Pulse Rate 109 H 02/15/19 09:00 Respiratory Rate 20 02/15/19 09:00 Blood Pressure 119/73 02/15/19 09:00 O2 Sat by Pulse Oximetry (%) 94 L 02/14/19 21:00 Constitutional: Yes: Calm, Obese Eyes: Yes: WNL HENT: Yes: WNL Neck: Yes: WNL Cardiovascular: Yes: Regular Rate and Rhythm, S1, S2 Respiratory: Yes: Rhonchi (few rhonchi) Gastrointestinal: Yes: Normal Bowel Sounds, Soft Extremities: Yes: WNL Edema: Yes Labs: CBC, BMP 02/15/19 07:09 INR, PTT INR 1.01 (0.83-1.09) 02/10/19 01:42 Problem List - Problems (1) Acquired lymphedema of lower extremity Code(s): I89.0 - LYMPHEDEMA, NOT ELSEWHERE CLASSIFIED (2) Diabetes 1.5, managed as type 2 Code(s): E13.9 - OTHER SPECIFIED DIABETES MELLITUS WITHOUT COMPLICATIONS (3) Dyspnea Code(s): R06.00 - DYSPNEA, UNSPECIFIED (4) Hyponatremia Code(s): E87.1 - HYPO-OSMOLALITY AND HYPONATREMIA (5) Morbid obesity Code(s): E66.01 - MORBID (SEVERE) OBESITY DUE TO EXCESS CALORIES (6) Sleep apnea Code(s): G47.30 - SLEEP APNEA, UNSPECIFIED (7) Smoker Code(s): F17.200 - NICOTINE DEPENDENCE, UNSPECIFIED, UNCOMPLICATED Assessment/Plan A/P Hyponatremia improving Morbid Obesity SANDRA/OHS Hypoxia HTN DM - NS per renal - on empiric antibiotics per ID - O2 to keep Spo2 >90% - CPAP at night - DVT prophylaxis - consider bariatric surgery evaluation DR CURRY
--- NOTE | 2019-02-15 12:11 | DS ---
Physical Examination Vital Signs: Vital Signs Temperature 97.9 F 02/15/19 09:00 Pulse Rate 109 H 02/15/19 09:00 Respiratory Rate 20 02/15/19 09:00 Blood Pressure 119/73 02/15/19 09:00 O2 Sat by Pulse Oximetry (%) 94 L 02/14/19 21:00 Eyes: Yes: WNL HENT: Yes: WNL Neck: Yes: WNL Cardiovascular: Yes: WNL Respiratory: Yes: SOB on Exertion Gastrointestinal: Yes: WNL ...Rectal Exam: Yes: Deferred, Sphincter Tone Normal Breast(s): Yes: WNL Musculoskeletal: Yes: WNL Extremities: Yes: Erythema Edema: Yes Edema: LLE: 2+, RLE: 2+ Peripheral Pulses WNL: Yes Integumentary: Yes: WNL Wound/Incision: Yes: Clean/Dry Neurological: Yes: WNL ...Motor Strength: WNL Psychiatric: Yes: WNL Labs: CBC, BMP 02/13/19 07:45 02/15/19 07:09 Discharge Summary Reason For Visit: ACUTE ON CHRONIC CONGESTIVE HEART FAILURE, Current Active Problems Abnormal LFTs (Acute) Acquired lymphedema of lower extremity (Acute) Atelectasis of both lungs (Acute) CHF exacerbation (Acute) Cough (Acute) Diabetes 1.5, managed as type 2 (Acute) Dyspnea (Acute) Fever (Acute) Gastroenteritis (Acute) Hyponatremia (Acute) Hyponatremia (Acute) Morbid obesity (Acute) Rash and nonspecific skin eruption (Acute) Sleep apnea (Acute) Smoker (Acute) Systemic inflammatory response syndrome (SIRS) (Acute) Condition: Improved - Instructions Diet, Activity, Other Instructions: cont all meds at home no dieretics appt w me 1 30 pm sunday called [facility] Disposition: HOME - Home Medications Comprehensive Discharge Medication List: Ambulatory Orders Bupropion HCl [Wellbutrin Xl -] 300 mg PO DAILY 11/28/13 Rabeprazole Sodium [Aciphex] 20 mg PO DAILY 11/28/13 Loperamide HCl [Imodium -] 2 mg PO PRN PRN 12/01/13
--- NOTE | 2019-02-15 14:34 | PN ---
Progress Note, Physician History of Present Illness: Pt seen and examined at bedside. She is awake and alert. She is eager to go home. - Current Medication List Current Medications: Active Medications Aspirin (Ecotrin -) 81 mg PO DAILY [facility] Last Admin: 02/15/19 10:38 Dose: 81 mg Bupropion HCl (Wellbutrin Xl -) 300 mg PO DAILY [facility] Last Admin: 02/15/19 10:38 Dose: Not Given Carvedilol (Coreg -) 6.25 mg PO BID [facility] Last Admin: 02/15/19 10:38 Dose: 6.25 mg Diphenoxylate HCl/Atropine (Lomotil -) 1 combo PO Q8H PRN PRN Reason: DIARRHEA Last Admin: 02/15/19 05:20 Dose: 1 combo Nicotine (Nicoderm Patch -) 14 mg TD DAILY [facility] Last Admin: 02/15/19 10:39 Dose: 14 mg Pantoprazole Sodium (Protonix Iv) 40 mg IVPUSH BID [facility] Last Admin: 02/15/19 10:42 Dose: 40 mg - Objective Vital Signs: Vital Signs Temperature 97.9 F 02/15/19 09:00 Pulse Rate 109 H 02/15/19 09:00 Respiratory Rate 20 02/15/19 09:00 Blood Pressure 119/73 02/15/19 09:00 O2 Sat by Pulse Oximetry (%) 94 L 02/14/19 21:00 Constitutional: Yes: Calm Eyes: Yes: Conjunctiva Clear HENT: Yes: Atraumatic Neck: Yes: Supple Cardiovascular: Yes: S1, S2 Respiratory: Yes: CTA Bilaterally Gastrointestinal: Yes: Soft, Abdomen, Obese Genitourinary: Yes: WNL Musculoskeletal: Yes: WNL Edema: Yes Edema: LLE: 1+, RLE: 1+ Integumentary: Yes: Venous Stasis Changes Neurological: Yes: Oriented Psychiatric: Yes: Oriented Labs: CBC, BMP 02/13/19 07:45 02/15/19 07:09 INR, PTT INR 1.01 (0.83-1.09) 02/10/19 01:42 Problem List - Problems (1) Hyponatremia Code(s): E87.1 - HYPO-OSMOLALITY AND HYPONATREMIA Assessment/Plan Current Medications Generic Name Dose Route Start Last Admin Trade Name Freq PRN Reason Stop Dose Admin Aspirin 81 mg 02/11/19 10:00 02/15/19 10:38 Ecotrin - PO 81 mg DAILY [facility] Administration Bupropion HCl 300 mg 02/10/19 10:00 02/15/19 10:38 Wellbutrin Xl - PO Not Given DAILY [facility] Carvedilol 6.25 mg 02/10/19 22:00 02/15/19 10:38 Coreg - PO 6.25 mg BID [facility] Administration Diphenoxylate HCl/Atropine 1 combo 02/13/19 10:57 02/15/19 05:20 Lomotil - PO 1 combo Q8H PRN Administration DIARRHEA Nicotine 14 mg 02/11/19 10:00 02/15/19 10:39 Nicoderm Patch - TD 14 mg DAILY [facility] Administration Pantoprazole Sodium 40 mg 02/12/19 22:00 02/15/19 10:42 Protonix Iv IVPUSH 40 mg BID [facility] Administration Impression 1. hyponatremia hypo-osmolar 2. obesity 3. venous stasis 4. htn 5. DM 6. chf Plan - sodium is improving - pt tolerating diet - will need close outpt follow up - recommend that she does not drink any alcohol - diuretics on hold for now, will need to follow as outpt and will need to monitor volume status
[2019-02-15 15:38] VITALS: BP 117/71; PULSE 72; TEMP 97.6
== END 2019-02-15 15:30 | disposition home or self-care (01) | DRG 392 ==
LOC: JER 23:36 → JERBED 02-10 05:14 → J6S 02-10 09:47
PROVIDERS: ADMIT Family Medicine; ATTEND Family Medicine
DX: K52.9 Noninfective gastroenteritis and colitis, unspecified (principal); Z68.44 Body mass index [BMI] 60.0-69.9, adult; E87.1 Hypo-osmolality and hyponatremia; J98.11 Atelectasis; E11.9 Type 2 diabetes mellitus without complications; Z91.14 Patient's other noncompliance with medication regimen; E78.5 Hyperlipidemia, unspecified; E66.01 Morbid (severe) obesity due to excess calories; I11.0 Hypertensive heart disease with heart failure; I50.9 Heart failure, unspecified; G47.33 Obstructive sleep apnea (adult) (pediatric); I87.2 Venous insufficiency (chronic) (peripheral); R21 Rash and other nonspecific skin eruption; R94.5 Abnormal results of liver function studies; I89.0 Lymphedema, not elsewhere classified
CPT/HCPCS: 36415; 71045-TC-FY; 71275-TC; 74176-TC; 76705-TC; 80048; 80053; 80076; 81003; 82550; 82803; 82962; 83036; 83605; 83880; 83930; 83935; 84300; 84443; 84484; 85025; 85610; 85730; 86593; 87040; 87045; 87046; 87086; 87205; 87324; 87449; 87529; 87804; 87899; 90732; 93005; 93010; 93306-TC; 93970-TC; 94640; 94761; 97116-GP; 97161-GP; 99285-25; G0009; J0131; J7030; Q0162; Q9967

== ENCOUNTER 2020-08-10 18:21 | Inpatient (IN) | payer BC, OTHER ==
[2020-08-10] MEDS ORDERED: DEXAMETHASONE SOD PHOSPHATE 4 MG/1 ML VIAL IVPUSH ONE (20:14)
[2020-08-10] MEDS ORDERED: ACETAMINOPHEN 1000 MG/100 ML VIAL (NON FORMULARY) IVPB ONE (20:41)
[2020-08-10] MEDS ORDERED: DEXAMETHASONE SOD PHOSPHATE 10 MG/1 ML VIAL ONE (21:37)
[2020-08-10] MEDS ORDERED: ACETAMINOPHEN INJECTION 100 ML IVPB ONE (21:37)
[2020-08-10 21:40] LABS: VENOUS BASE EXCESS 4.6 mmol/L (-2-2); VENOUS O2 SATURATION 62.5 % (70-80); VENOUS PCO2 54.8 mmHg (38-52); VENOUS PH 7.372 (7.310-7.410)
[2020-08-10 21:41] LABS: BASO % 0.2 % (0-2.0); HEMATOCRIT 37.6 % (32.4-45.2); HEMOGLOBIN 11.8 GM/dL (10.7-15.3); LYMPH % 19.3 % (8-40); MCH 24.5 pg (25.7-33.7); MCHC 31.4 g/dl (32.0-36.0); MEAN CELL VOLUME 78.1 fl (80-96); MEAN PLT VOLUME 8.2 fl (7.5-11.1); MONO % 9.3 % (3.8-10.2); NEUT % 71.2 % (42.8-82.8); PLATELET COUNT 356 K/MM3 (134-434); RBC 4.82 M/mm3 (3.60-5.2); RDW 17.6 % (11.6-15.6); WHITE BLOOD COUNT 7.8 K/mm3 (4.0-10.0)
[2020-08-10 21:47] LABS: INR 1.1 (0.83-1.09); PROTHROMBIN TIME (PATIENT) 13.3 SEC (9.7-13.0)
[2020-08-10 21:50] LABS: ACTIVATED PTT 27.4 SECONDS (25.2-36.5)
[2020-08-10 21:58] LABS: CHLORIDE 94 mmol/L (98-107); POTASSIUM 4.1 mmol/L (3.5-5.1); SODIUM 133 mmol/L (136-145)
[2020-08-10 22:02] LABS: ALBUMIN 3.3 g/dl (3.4-5.0); ANION GAP 5 MMOL/L (8-16); BLOOD UREA NITROGEN 7.3 mg/dL (7-18); CO2 34 mmol/L (21-32); GLUCOSE,RANDOM 94 mg/dL (74-106)
[2020-08-10 22:04] LABS: CALCIUM 8.3 mg/dL (8.5-10.1); MAGNESIUM 1.9 mg/dL (1.8-2.4)
[2020-08-10 22:05] LABS: CREATININE 0.8 mg/dL (0.55-1.3); SGOT/AST 20 U/L (15-37); SGPT/ALT 19 U/L (13-61)
[2020-08-10 22:06] LABS: N-TERMINAL BNP 95.9 pg/ml (5-125); PHOSPHOROUS 2.7 mg/dL (2.5-4.9)
[2020-08-10 22:07] LABS: TOT PROT 7.9 g/dl (6.4-8.2)
[2020-08-10 22:08] LABS: ALK PHOS 79 U/L (45-117)
[2020-08-10 22:10] LABS: BILIRUBIN,TOTAL 0.3 mg/dL (0.2-1); LDH 326 U/L (84-246)
[2020-08-10] MEDS ORDERED: ENOXAPARIN NA (PORCINE) 120 MG/0.8 ML DISP.SYRIN SQ ONE (22:15)
[2020-08-10] MEDS ORDERED: POTASSIUM CHLORIDE ORAL LIQUID 20 MEQ/15 ML PO ONE (22:47)
[2020-08-11 06:53] LABS: EPI CELLS 32 /uL (0-25.1); HYALINE CASTS 2 /uL (0-3.1); URINE APPEARANCE CLEAR; URINE BACTERIA 444 /uL (0-1359); URINE BILIRUBIN NEGATIVE (NEGATIVE); URINE COLOR YELLOW; URINE GLUCOSE (UA) NEGATIVE (NEGATIVE); URINE KETONE TRACE (NEGATIVE); URINE LEUK ESTERASE NEGATIVE (NEGATIVE); URINE NITRITE NEGATIVE (NEGATIVE); URINE PROTEIN 2+ (NEGATIVE); URINE RBC 9 /uL (0-23.9); URINE UROBILINOGEN 0.2 mg/dL (0.2-1.0); URINE WBC 18 /uL (0-25.8)
[2020-08-11 07:48] LABS: BASO % 0.2 % (0-2.0); HEMATOCRIT 39.7 % (32.4-45.2); HEMOGLOBIN 12.7 GM/dL (10.7-15.3); LYMPH % 17.6 % (8-40); MCH 24.8 pg (25.7-33.7); MCHC 31.9 g/dl (32.0-36.0); MEAN CELL VOLUME 77.8 fl (80-96); MEAN PLT VOLUME 8.4 fl (7.5-11.1); MONO % 5.8 % (3.8-10.2); NEUT % 76.4 % (42.8-82.8); PLATELET COUNT 333 K/MM3 (134-434); RDW 17.9 % (11.6-15.6); WHITE BLOOD COUNT 5.8 K/mm3 (4.0-10.0)
[2020-08-11] MEDS ORDERED: ASCORBIC ACID 500 MG TABLET (FP) ONE (09:12)
[2020-08-11] MEDS ORDERED: DEXAMETHASONE SOD PHOSPHATE 10 MG/1 ML VIAL ONE (09:13)
[2020-08-11] MEDS ORDERED: FUROSEMIDE 40 MG TABLET (FP) ONE (09:13)
[2020-08-11] MEDS ORDERED: FAMOTIDINE 20 MG TABLET ONE ×2 (09:13→22:20)
[2020-08-11] MEDS ORDERED: POTASSIUM CHLORIDE TABS 10 MEQ TABLET.ER (FP) ONE (09:13)
[2020-08-11] MEDS ORDERED: ZINC SULFATE 220 MG CAPSULE (FP) ONE (09:14)
[2020-08-11] MEDS ORDERED: CHOLECALCIFEROL (VIT D3) 1,000 UNIT (25 MCG) TABLET ONE (09:14)
[2020-08-11] MEDS ORDERED: RAMIPRIL 5 MG CAPSULE ONE (09:14)
[2020-08-11] MEDS ORDERED: ENOXAPARIN NA (PORCINE) 40 MG/0.4 ML DISP.SYRIN SQ ONE (09:15)
[2020-08-11] MEDS ORDERED: buPROPion HCL 100 MG TABLET ONE (09:15)
[2020-08-11] MEDS ORDERED: AZITHROMYCIN IVPB 500 MG/250 ML BAG IVPB ONE (09:16)
[2020-08-11 09:17] LABS: POTASSIUM 4.5 mmol/L (3.5-5.1)
[2020-08-11 09:19] LABS: CALCIUM 8.6 mg/dL (8.5-10.1)
[2020-08-11 09:20] LABS: ALBUMIN 3.3 g/dl (3.4-5.0); BLOOD UREA NITROGEN 8.3 mg/dL (7-18)
[2020-08-11 09:23] LABS: CREATININE 0.8 mg/dL (0.55-1.3)
[2020-08-11 09:25] LABS: BILIRUBIN,TOTAL 0.3 mg/dL (0.2-1); TOT PROT 8.2 g/dl (6.4-8.2)
[2020-08-11] MEDS: CHOLECALCIFEROL (VIT D3) 5000 UNITS (125 MCG) CAP PO SCH (10:00)
[2020-08-11] MEDS: ZINC SULFATE 220 MG CAPSULE (FP) PO SCH (10:00)
[2020-08-11] MEDS: FUROSEMIDE 40 MG TABLET (FP) PO SCH (10:00)
[2020-08-11] MEDS ORDERED: DEXAMETHASONE 4 MG TABLET (FP) PO SCH (10:00)
[2020-08-11] MEDS: DEXAMETHASONE SOD PHOSPHATE 4 MG/1 ML VIAL IVPUSH SCH (10:00)
[2020-08-11] MEDS ORDERED: AZITHROMYCIN IVPB 500 MG/250 ML D5W PRE-DOCKED IVPB SCH (10:00)
[2020-08-11] MEDS: RAMIPRIL 5 MG CAPSULE PO SCH (10:00)
[2020-08-11] MEDS ORDERED: ASCORBIC ACID 500 MG TABLET (FP) PO SCH (10:00)
[2020-08-11] MEDS ORDERED: AZITHROMYCIN 500 MG TABLET PO SCH (10:00)
[2020-08-11] MEDS: ASCORBIC ACID 500 MG TABLET (FP) PO SCH (10:00)
[2020-08-11] MEDS: CARVEDILOL 6.25 MG TABLET (FP) PO SCH ×3 (10:00→22:27)
[2020-08-11] MEDS: FAMOTIDINE 20 MG TABLET PO SCH ×2 (10:00→22:27)
[2020-08-11] MEDS ORDERED: CHOLECALCIFEROL (VIT D3) 1,000 UNIT (25 MCG) TABLET PO SCH (10:00)
[2020-08-11] MEDS: POTASSIUM CHLORIDE TABS 10 MEQ TABLET.ER (FP) PO SCH (10:00)
[2020-08-11] MEDS: ENOXAPARIN NA (PORCINE) 40 MG/0.4 ML DISP.SYRIN SQ SCH (11:47)
[2020-08-11] MEDS ORDERED: REMDESIVIR 200 MG in SODIUM CHLORIDE 210 ML IVPB ONE (12:24)
[2020-08-11] MEDS: metFORMIN HCL 500 MG TABLET (FP) PO SCH (18:30)
[2020-08-11] MEDS ORDERED: metFORMIN HCL 500 MG TABLET (FP) ONE (18:40)
[2020-08-11] MEDS ORDERED: CEFEPIME 1 GM/100 ML BAG IVPB ONE (18:42)
[2020-08-11] MEDS ORDERED: CARVEDILOL 12.5 MG TABLET (FP) ONE ×2 (19:16→22:20)
[2020-08-11] MEDS: CEFEPIME 1 GM in DEXTROSE 5%-WATER 100 ML IVPB SCH (19:49)
[2020-08-12] MEDS ORDERED: CEFEPIME HCL 1 GM VIAL (RESTRICTED TO ID) ONE ×3 (01:47→17:30)
[2020-08-12] MEDS ORDERED: DEXTROSE 5%-WATER 100 ML IVPB ONE ×3 (01:47→17:31)
[2020-08-12] MEDS: CEFEPIME 1 GM in DEXTROSE 5%-WATER 100 ML IVPB SCH ×3 (01:50→17:39)
[2020-08-12] MEDS: metFORMIN HCL 500 MG TABLET (FP) PO SCH ×2 (07:05→17:39)
[2020-08-12 07:48] LABS: BASO % 0.3 % (0-2.0); HEMATOCRIT 38.5 % (32.4-45.2); HEMOGLOBIN 12.1 GM/dL (10.7-15.3); LYMPH % 21.4 % (8-40); MCH 24.7 pg (25.7-33.7); MCHC 31.4 g/dl (32.0-36.0); MEAN CELL VOLUME 78.6 fl (80-96); MEAN PLT VOLUME 8.2 fl (7.5-11.1); MONO % 16.4 % (3.8-10.2); NEUT % 61.9 % (42.8-82.8); PLATELET COUNT 384 K/MM3 (134-434); RBC 4.91 M/mm3 (3.60-5.2); RDW 17.9 % (11.6-15.6); WHITE BLOOD COUNT 8.2 K/mm3 (4.0-10.0)
[2020-08-12 07:59] LABS: POTASSIUM 4.4 mmol/L (3.5-5.1)
[2020-08-12 08:03] LABS: ALBUMIN 3.3 g/dl (3.4-5.0); CALCIUM 8.8 mg/dL (8.5-10.1); MAGNESIUM 2.8 mg/dL (1.8-2.4)
[2020-08-12 08:04] LABS: BLOOD UREA NITROGEN 11.1 mg/dL (7-18)
[2020-08-12 08:06] LABS: CREATININE 0.8 mg/dL (0.55-1.3)
[2020-08-12 08:07] LABS: BILIRUBIN,TOTAL 0.3 mg/dL (0.2-1); PHOSPHOROUS 3.2 mg/dL (2.5-4.9)
[2020-08-12 08:08] LABS: TOT PROT 8.3 g/dl (6.4-8.2)
[2020-08-12] MEDS: FAMOTIDINE 20 MG TABLET PO SCH ×2 (09:16→21:45)
[2020-08-12] MEDS: FUROSEMIDE 40 MG TABLET (FP) PO SCH (09:16)
[2020-08-12] MEDS: CARVEDILOL 6.25 MG TABLET (FP) PO SCH ×2 (09:17→21:45)
[2020-08-12] MEDS: DEXAMETHASONE SOD PHOSPHATE 4 MG/1 ML VIAL IVPUSH SCH (09:17)
[2020-08-12] MEDS: ENOXAPARIN NA (PORCINE) 40 MG/0.4 ML DISP.SYRIN SQ SCH (09:18)
[2020-08-12] MEDS: RAMIPRIL 5 MG CAPSULE PO SCH (09:28)
[2020-08-12] MEDS: POTASSIUM CHLORIDE TABS 10 MEQ TABLET.ER (FP) PO SCH (09:28)
[2020-08-12] MEDS: ZINC SULFATE 220 MG CAPSULE (FP) PO SCH (09:28)
[2020-08-12] MEDS ORDERED: AZITHROMYCIN 250 MG TABLET PO SCH (10:00)
[2020-08-12] MEDS: CHOLECALCIFEROL (VIT D3) 5000 UNITS (125 MCG) CAP PO SCH (13:40)
[2020-08-12] MEDS: ASCORBIC ACID 500 MG TABLET (FP) PO SCH (13:40)
[2020-08-12] MEDS: REMDESIVIR 100 MG in SODIUM CHLORIDE 230 ML IVPB SCH (14:48)
[2020-08-12 14:54] VITALS: BMI 46.7
[2020-08-12] MEDS ORDERED: MELATONIN 5 MG TABLETS PO ONE (22:33)
[2020-08-13] MEDS ORDERED: DEXTROSE 5%-WATER 100 ML IVPB ONE ×3 (01:11→18:24)
[2020-08-13] MEDS ORDERED: CEFEPIME HCL 1 GM VIAL (RESTRICTED TO ID) ONE ×3 (01:11→18:23)
[2020-08-13] MEDS: CEFEPIME 1 GM in DEXTROSE 5%-WATER 100 ML IVPB SCH ×3 (01:28→18:30)
[2020-08-13] MEDS: metFORMIN HCL 500 MG TABLET (FP) PO SCH ×2 (06:32→16:40)
[2020-08-13 06:45] LABS: BASO % 0.2 % (0-2.0); HEMATOCRIT 36.3 % (32.4-45.2); HEMOGLOBIN 11.3 GM/dL (10.7-15.3); LYMPH % 22.4 % (8-40); MCH 24.3 pg (25.7-33.7); MCHC 31.1 g/dl (32.0-36.0); MEAN CELL VOLUME 78.3 fl (80-96); MEAN PLT VOLUME 8.3 fl (7.5-11.1); MONO % 15.7 % (3.8-10.2); NEUT % 61.7 % (42.8-82.8); PLATELET COUNT 385 K/MM3 (134-434); RBC 4.64 M/mm3 (3.60-5.2); RDW 17.9 % (11.6-15.6); WHITE BLOOD COUNT 8.7 K/mm3 (4.0-10.0)
[2020-08-13 07:04] LABS: POTASSIUM 4.5 mmol/L (3.5-5.1)
[2020-08-13 07:08] LABS: CALCIUM 8.5 mg/dL (8.5-10.1)
[2020-08-13 07:09] LABS: BLOOD UREA NITROGEN 19.5 mg/dL (7-18)
[2020-08-13 07:12] LABS: CREATININE 0.7 mg/dL (0.55-1.3)
[2020-08-13] MEDS: RAMIPRIL 5 MG CAPSULE PO SCH (10:12)
[2020-08-13] MEDS: ASCORBIC ACID 500 MG TABLET (FP) PO SCH (10:12)
[2020-08-13] MEDS: CARVEDILOL 6.25 MG TABLET (FP) PO SCH ×2 (10:12→22:05)
[2020-08-13] MEDS: DEXAMETHASONE SOD PHOSPHATE 4 MG/1 ML VIAL IVPUSH SCH (10:12)
[2020-08-13] MEDS: ZINC SULFATE 220 MG CAPSULE (FP) PO SCH (10:13)
[2020-08-13] MEDS: POLYETHYLENE GLYCOL 3350 119 GM BTL PO SCH (10:13)
[2020-08-13] MEDS: FUROSEMIDE 40 MG TABLET (FP) PO SCH (10:13)
[2020-08-13] MEDS: FAMOTIDINE 20 MG TABLET PO SCH ×2 (10:13→22:05)
[2020-08-13] MEDS: POTASSIUM CHLORIDE TABS 10 MEQ TABLET.ER (FP) PO SCH (10:14)
[2020-08-13] MEDS: ENOXAPARIN NA (PORCINE) 40 MG/0.4 ML DISP.SYRIN SQ SCH (10:14)
[2020-08-13] MEDS ORDERED: PT OWN MED DRAWER 7, Y5N ONE (11:00)
[2020-08-13] MEDS: CHOLECALCIFEROL (VIT D3) 5000 UNITS (125 MCG) CAP PO SCH (11:03)
[2020-08-13] MEDS: REMDESIVIR 100 MG in SODIUM CHLORIDE 230 ML IVPB SCH (14:54)
[2020-08-14] MEDS ORDERED: CEFEPIME HCL 1 GM VIAL (RESTRICTED TO ID) ONE ×3 (02:02→17:31)
[2020-08-14] MEDS ORDERED: DEXTROSE 5%-WATER 100 ML IVPB ONE ×3 (02:02→17:31)
[2020-08-14] MEDS: CEFEPIME 1 GM in DEXTROSE 5%-WATER 100 ML IVPB SCH ×3 (02:03→17:39)
[2020-08-14] MEDS: metFORMIN HCL 500 MG TABLET (FP) PO SCH ×2 (06:44→17:39)
[2020-08-14] MEDS ORDERED: PT OWN MED DRAWER 7, Y5N ONE ×2 (08:50→10:07)
[2020-08-14] MEDS: RAMIPRIL 5 MG CAPSULE PO SCH (09:08)
[2020-08-14] MEDS: ZINC SULFATE 220 MG CAPSULE (FP) PO SCH (09:08)
[2020-08-14] MEDS: FUROSEMIDE 40 MG TABLET (FP) PO SCH (09:08)
[2020-08-14] MEDS: FAMOTIDINE 20 MG TABLET PO SCH ×2 (09:09→22:09)
[2020-08-14] MEDS: CARVEDILOL 6.25 MG TABLET (FP) PO SCH ×2 (09:09→22:09)
[2020-08-14] MEDS: POTASSIUM CHLORIDE TABS 10 MEQ TABLET.ER (FP) PO SCH (09:09)
[2020-08-14] MEDS: ASCORBIC ACID 500 MG TABLET (FP) PO SCH (09:09)
[2020-08-14] MEDS: DEXAMETHASONE SOD PHOSPHATE 4 MG/1 ML VIAL IVPUSH SCH (09:10)
[2020-08-14] MEDS: POLYETHYLENE GLYCOL 3350 119 GM BTL PO SCH (09:12)
[2020-08-14] MEDS: ENOXAPARIN NA (PORCINE) 40 MG/0.4 ML DISP.SYRIN SQ SCH (09:12)
[2020-08-14] MEDS: CHOLECALCIFEROL (VIT D3) 5000 UNITS (125 MCG) CAP PO SCH (10:09)
[2020-08-14] MEDS: REMDESIVIR 100 MG in SODIUM CHLORIDE 230 ML IVPB SCH (14:54)
[2020-08-15] MEDS ORDERED: CEFEPIME HCL 1 GM VIAL (RESTRICTED TO ID) ONE ×3 (01:35→17:48)
[2020-08-15] MEDS ORDERED: DEXTROSE 5%-WATER 100 ML IVPB ONE ×3 (01:36→17:48)
[2020-08-15] MEDS: CEFEPIME 1 GM in DEXTROSE 5%-WATER 100 ML IVPB SCH ×3 (01:49→17:54)
[2020-08-15] MEDS: metFORMIN HCL 500 MG TABLET (FP) PO SCH ×2 (06:17→17:54)
[2020-08-15 08:42] LABS: POTASSIUM 4.5 mmol/L (3.5-5.1)
[2020-08-15 08:44] LABS: BASO % 0.3 % (0-2.0); CALCIUM 8.8 mg/dL (8.5-10.1); EOS % 0.1 % (0-4.5); HEMATOCRIT 37.6 % (32.4-45.2); HEMOGLOBIN 11.9 GM/dL (10.7-15.3); LYMPH % 24.3 % (8-40); MCH 24.8 pg (25.7-33.7); MCHC 31.6 g/dl (32.0-36.0); MEAN CELL VOLUME 78.6 fl (80-96); MONO % 13.6 % (3.8-10.2); NEUT % 61.7 % (42.8-82.8); PLATELET COUNT 421 K/MM3 (134-434); RBC 4.78 M/mm3 (3.60-5.2); RDW 17.7 % (11.6-15.6); WHITE BLOOD COUNT 10.6 K/mm3 (4.0-10.0)
[2020-08-15 08:46] LABS: BLOOD UREA NITROGEN 18.1 mg/dL (7-18)
[2020-08-15 08:49] LABS: CREATININE 0.8 mg/dL (0.55-1.3)
[2020-08-15] MEDS ORDERED: PT OWN MED DRAWER 7, Y5N ONE (09:43)
[2020-08-15] MEDS: RAMIPRIL 5 MG CAPSULE PO SCH (09:49)
[2020-08-15] MEDS: FUROSEMIDE 40 MG TABLET (FP) PO SCH (09:49)
[2020-08-15] MEDS: ASCORBIC ACID 500 MG TABLET (FP) PO SCH (09:49)
[2020-08-15] MEDS: DEXAMETHASONE SOD PHOSPHATE 4 MG/1 ML VIAL IVPUSH SCH (09:49)
[2020-08-15] MEDS: POTASSIUM CHLORIDE TABS 10 MEQ TABLET.ER (FP) PO SCH (09:49)
[2020-08-15] MEDS: CARVEDILOL 6.25 MG TABLET (FP) PO SCH ×2 (09:49→22:11)
[2020-08-15] MEDS: ENOXAPARIN NA (PORCINE) 40 MG/0.4 ML DISP.SYRIN SQ SCH (09:50)
[2020-08-15] MEDS: ZINC SULFATE 220 MG CAPSULE (FP) PO SCH (09:50)
[2020-08-15] MEDS: FAMOTIDINE 20 MG TABLET PO SCH ×2 (09:50→22:11)
[2020-08-15] MEDS: CHOLECALCIFEROL (VIT D3) 5000 UNITS (125 MCG) CAP PO SCH (09:50)
[2020-08-15] MEDS: REMDESIVIR 100 MG in SODIUM CHLORIDE 230 ML IVPB SCH (14:52)
[2020-08-16] MEDS ORDERED: DEXTROSE 5%-WATER 100 ML IVPB ONE ×2 (01:52→09:03)
[2020-08-16] MEDS ORDERED: CEFEPIME HCL 1 GM VIAL (RESTRICTED TO ID) ONE ×2 (01:52→09:03)
[2020-08-16] MEDS: CEFEPIME 1 GM in DEXTROSE 5%-WATER 100 ML IVPB SCH ×2 (01:56→09:36)
[2020-08-16] MEDS: metFORMIN HCL 500 MG TABLET (FP) PO SCH (06:37)
[2020-08-16] MEDS ORDERED: PT OWN MED DRAWER 7, Y5N ONE (09:03)
[2020-08-16] MEDS: ASCORBIC ACID 500 MG TABLET (FP) PO SCH (09:33)
[2020-08-16] MEDS: ENOXAPARIN NA (PORCINE) 40 MG/0.4 ML DISP.SYRIN SQ SCH (09:33)
[2020-08-16] MEDS: FAMOTIDINE 20 MG TABLET PO SCH (09:33)
[2020-08-16] MEDS: CHOLECALCIFEROL (VIT D3) 5000 UNITS (125 MCG) CAP PO SCH (09:33)
[2020-08-16] MEDS: FUROSEMIDE 40 MG TABLET (FP) PO SCH (09:33)
[2020-08-16] MEDS: POTASSIUM CHLORIDE TABS 10 MEQ TABLET.ER (FP) PO SCH (09:33)
[2020-08-16] MEDS: ZINC SULFATE 220 MG CAPSULE (FP) PO SCH (09:33)
[2020-08-16] MEDS: CARVEDILOL 6.25 MG TABLET (FP) PO SCH (09:33)
[2020-08-16] MEDS: RAMIPRIL 5 MG CAPSULE PO SCH (09:34)
[2020-08-16] MEDS: DEXAMETHASONE SOD PHOSPHATE 4 MG/1 ML VIAL IVPUSH SCH (09:35)
[2020-08-16 09:53] VITALS: BP 111/60; TEMP 97.9
[2020-08-16 11:09] VITALS: PULSE 112
== END 2020-08-16 15:15 | disposition home or self-care (01) | DRG 177 ==
LOC: JER 18:21 → JERBED 20:50 → J4S 08-12 01:32
PROVIDERS: ADMIT Family Medicine; ATTEND Family Medicine
PROC: XW033E5 Introduction of Remdesivir Anti-infective into Peripheral Vein, Percutaneous Approach, New Technology Group 5 (ICD-10-PCS; principal; 2020-08-12)
PROC: XW13325 Transfusion of Convalescent Plasma (Nonautologous) into Peripheral Vein, Percutaneous Approach, New Technology Group 5 (ICD-10-PCS; 2020-08-12)
DX: U07.1 COVID-19 (principal); J12.89 Other viral pneumonia; Z68.44 Body mass index [BMI] 60.0-69.9, adult; E66.01 Morbid (severe) obesity due to excess calories; J45.909 Unspecified asthma, uncomplicated; I10 Essential (primary) hypertension; E11.9 Type 2 diabetes mellitus without complications; E78.5 Hyperlipidemia, unspecified; R09.02 Hypoxemia; R05 Cough
CPT/HCPCS: 36415; 36430; 71045-TC-FY; 80048; 80053; 81003; 82308; 82550; 82553; 82728; 82803; 82962; 83036; 83605; 83615; 83735; 83880; 84100; 84443; 84484; 85025; 85379; 85610; 85730; 86140; 86850; 86900; 86901; 87040; 87804; 87899; 93005; 93010; 94761; 99291; C9399; C9803; J0131; P9017; U0003

== ENCOUNTER 2021-03-19 00:21 | Emergency (ER) | payer BC, OTHER ==
[2021-03-19 00:59] VITALS: BP 104/69; PULSE 104; TEMP 98.4; BMI 65.2
[2021-03-19] MEDS ORDERED: AZITHROMYCIN 250 MG TABLET PO ONE (02:23)
[2021-03-19] MEDS ORDERED: AZITHROMYCIN 250 MG TABLET ONE (02:24)
[2021-03-19] MEDS ORDERED: DEXAMETHASONE SOD PHOSPHATE 10 MG/1 ML VIAL ONE (02:41)
[2021-03-19] MEDS ORDERED: DEXAMETHASONE 4 MG TABLET (FP) PO ONE (02:45)
== END 2021-03-19 02:48 | disposition home or self-care (01) ==
LOC: JER 00:21
DX: J06.9 Acute upper respiratory infection, unspecified (principal)
CPT/HCPCS: 71046-TC-FY; 82962; 99284-25

== ENCOUNTER 2022-04-09 18:31 | Emergency (ER) | payer BC, OTHER ==
[2022-04-09 18:40] VITALS: BP 125/74; PULSE 98; RESP 18; TEMP 98.1; BMI 64.3
[2022-04-09] MEDS ORDERED: ACETAMINOPHEN 500 MG TABLET (FP) PO ONE (19:36)
[2022-04-09] MEDS ORDERED: ACETAMINOPHEN 325 MG TABLET (FP) ONE (19:52)
[2022-04-09 20:14] LABS: HEMATOCRIT 36.4 % (32.4-45.2); HEMOGLOBIN 11.9 GM/dL (10.7-15.3); MCH 24.1 pg (25.7-33.7); MCHC 32.6 g/dl (32.0-36.0); MEAN CELL VOLUME 74.1 fl (80-96); MEAN PLT VOLUME 7.7 fl (7.5-11.1); PLATELET COUNT 371 10^3/uL (134-434); RBC 4.92 M/mm3 (3.60-5.2); WHITE BLOOD COUNT 11.7 K/mm3 (4.0-10.0)
[2022-04-09 20:43] LABS: CALCIUM 9.5 mg/dL (8.5-10.1)
[2022-04-09 20:44] LABS: ALBUMIN 3.6 g/dl (3.4-5.0); BLOOD UREA NITROGEN 15.7 mg/dL (7-18)
[2022-04-09 20:47] LABS: CREATININE 0.9 mg/dL (0.55-1.3)
[2022-04-09 20:48] LABS: BILIRUBIN,TOTAL 0.3 mg/dL (0.2-1)
[2022-04-09] MEDS ORDERED: FLUCONAZOLE 150 MG TABLET PO ONE (20:55)
[2022-04-09] MEDS ORDERED: FLUCONAZOLE 100 MG TABLET (UD) ONE (20:59)
[2022-04-09 21:49] LABS: ANISOCYTOSIS 2+; MACROCYTOSIS 0; OVALOCYTE 1+; TARGET CELLS 2+; TEAR DROP CELLS 1+
== END 2022-04-09 21:10 | disposition home or self-care (01) ==
LOC: JER 18:31
DX: L03.115 Cellulitis of right lower limb (principal)
CPT/HCPCS: 36415; 80053; 85025; 87040; 87070; 87205; 99283-25

== ENCOUNTER 2022-04-12 10:19 | Emergency (ER) | payer BC, OTHER ==
[2022-04-12 10:27] VITALS: RESP 18; BMI 60.0
[2022-04-12] MEDS ORDERED: DALBAVANCIN HCL 1,500 MG in DEXTROSE 5%-WATER - 500 ML IVPB ONE (10:39)
[2022-04-12] MEDS ORDERED: DALBAVANCIN HCL 500 MG VIAL (RESTRICTED TO ID ONLY) IVPB ONE (10:43)
[2022-04-12 11:21] LABS: BASO % 1.2 % (0-2.0); EOS % 1.7 % (0-4.5); HEMATOCRIT 37.4 % (32.4-45.2); HEMOGLOBIN 11.9 GM/dL (10.7-15.3); LYMPH % 21.8 % (8-40); MCHC 31.9 g/dl (32.0-36.0); MEAN CELL VOLUME 75.2 fl (80-96); MEAN PLT VOLUME 8.1 fl (7.5-11.1); MONO % 11.6 % (3.8-10.2); NEUT % 63.7 % (42.8-82.8); PLATELET COUNT 407 10^3/uL (134-434); RBC 4.97 M/mm3 (3.60-5.2); WHITE BLOOD COUNT 10.8 K/mm3 (4.0-10.0)
[2022-04-12 14:17] VITALS: BP 125/74; PULSE 93; TEMP 98
== END 2022-04-12 14:29 | disposition home or self-care (01) ==
LOC: JER 10:19
DX: Z48.00 Encounter for change or removal of nonsurgical wound dressing (principal)
CPT/HCPCS: 36415; 83036; 85025; 97597; 99281-25; A6022; J0875

== ENCOUNTER 2022-08-26 19:54 | Emergency (ER) | payer BC, OTHER ==
[2022-08-26 20:05] VITALS: BP 122/78; PULSE 95; RESP 19; TEMP 97.7; BMI 51.5
[2022-08-26] MEDS ORDERED: ACETAMINOPHEN 325 MG TABLET (FP) PO ONE (21:16)
[2022-08-26 21:23] LABS: BASO % 0.9 % (0-2.0); EOS % 0.8 % (0-4.5); HEMATOCRIT 38.3 % (32.4-45.2); HEMOGLOBIN 12.3 GM/dL (10.7-15.3); LYMPH % 18.6 % (8-40); MCH 24.1 pg (25.7-33.7); MCHC 32.1 g/dl (32.0-36.0); MEAN CELL VOLUME 75.2 fl (80-96); MEAN PLT VOLUME 7.7 fl (7.5-11.1); MONO % 9.8 % (3.8-10.2); NEUT % 69.9 % (42.8-82.8); PLATELET COUNT 429 10^3/uL (134-434); RBC 5.09 M/mm3 (3.60-5.2); RDW 18.4 % (11.6-15.6); WHITE BLOOD COUNT 13.5 K/mm3 (4.0-10.0)
[2022-08-26] MEDS ORDERED: ACETAMINOPHEN 325 MG TABLET (FP) ONE (21:36)
[2022-08-26 21:46] LABS: CALCIUM 9.3 mg/dL (8.5-10.1)
[2022-08-26 21:47] LABS: ALBUMIN 3.7 g/dl (3.4-5.0); BLOOD UREA NITROGEN 9.7 mg/dL (7-18)
[2022-08-26 21:50] LABS: CREATININE 0.7 mg/dL (0.55-1.3)
[2022-08-26 21:51] LABS: TOT PROT 8.2 g/dl (6.4-8.2)
[2022-08-26 21:52] LABS: BILIRUBIN,TOTAL 0.4 mg/dL (0.2-1)
== END 2022-08-27 00:40 | disposition home or self-care (01) ==
LOC: JER 19:54
DX: S92.352A Displaced fracture of fifth metatarsal bone, left foot, initial encounter for closed fracture (principal); W19.XXXA Unspecified fall, initial encounter
CPT/HCPCS: 36415; 70450-TC; 71046-TC-FY; 72125-TC; 73562-TC-LT-FY; 73590-TC-LT-FY; 73610-TC-LT-FY; 73630-TC-LT; 80053; 84484; 85025; 93005; 93010; 99285-25; C9803-CS; U0003; U0005

== ENCOUNTER 2022-11-19 00:04 | Observation (INO) | payer BC, OTHER ==
[2022-11-19 00:15] VITALS: BMI 68.6
[2022-11-19 03:14] LABS: VENOUS BASE EXCESS 9.5 mmol/L (-2-2); VENOUS O2 SATURATION 87.6 % (70-80); VENOUS PCO2 57.2 mmHg (38-52); VENOUS PH 7.416 (7.310-7.410)
[2022-11-19 03:15] LABS: BASO % 0.9 % (0-2.0); EOS % 1.6 % (0-4.5); HEMATOCRIT 36.7 % (32.4-45.2); HEMOGLOBIN 11.7 GM/dL (10.7-15.3); LYMPH % 18.3 % (8-40); MCH 24.3 pg (25.7-33.7); MEAN PLT VOLUME 7.4 fl (7.5-11.1); MONO % 11.5 % (3.8-10.2); NEUT % 67.7 % (42.8-82.8); PLATELET COUNT 384 10^3/uL (134-434); RBC 4.83 M/mm3 (3.60-5.2); RDW 19.8 % (11.6-15.6); WHITE BLOOD COUNT 10.4 K/mm3 (4.0-10.0)
[2022-11-19] MEDS ORDERED: ACETAMINOPHEN 1000 MG/100 ML BAG IVPB ONE (03:28)
[2022-11-19 03:44] LABS: ALBUMIN 3.3 g/dl (3.4-5.0); BLOOD UREA NITROGEN 7.7 mg/dL (7-18)
[2022-11-19 03:47] LABS: CREATININE 0.7 mg/dL (0.55-1.3)
[2022-11-19 03:49] LABS: BILIRUBIN,TOTAL 0.5 mg/dL (0.2-1); TOT PROT 8.3 g/dl (6.4-8.2)
[2022-11-19] MEDS ORDERED: ACETAMINOPHEN INJECTION 100 ML IVPB ONE (03:49)
[2022-11-19 09:17] LABS: CALCIUM 8.8 mg/dL (8.5-10.1)
[2022-11-19 09:18] LABS: BLOOD UREA NITROGEN 8.9 mg/dL (7-18)
[2022-11-19 09:21] LABS: CREATININE 0.8 mg/dL (0.55-1.3)
[2022-11-19 09:25] LABS: N-TERMINAL BNP 88.8 pg/ml (5-125)
[2022-11-19] MEDS ORDERED: POTASSIUM CHLORIDE ORAL LIQUID 20 MEQ/15 ML PO ONE (11:26)
[2022-11-19] MEDS: ENOXAPARIN NA (PORCINE) 60 MG/0.6 ML DISP.SYRIN SQ SCH ×2 (12:58→21:26)
[2022-11-19] MEDS: ACETAMINOPHEN 325 MG TABLET (FP) PO PRN (12:59)
[2022-11-19] MEDS: FLUTICASONE/UMECLIDIN/VILANTER(200-62.5-25 TRELEGY ELLIPTA) INAHLER IH SCH (17:25)
[2022-11-19] MEDS: CARVEDILOL 6.25 MG TABLET (FP) PO SCH (21:26)
[2022-11-20] MEDS: ACETAMINOPHEN 325 MG TABLET (FP) PO PRN ×2 (03:26→12:11)
[2022-11-20 08:07] LABS: BASO % 0.5 % (0-2.0); EOS % 2.2 % (0-4.5); HEMATOCRIT 35.2 % (32.4-45.2); HEMOGLOBIN 11.1 GM/dL (10.7-15.3); LYMPH % 16.2 % (8-40); MCH 24.3 pg (25.7-33.7); MCHC 31.5 g/dl (32.0-36.0); MEAN CELL VOLUME 77.2 fl (80-96); MEAN PLT VOLUME 7.8 fl (7.5-11.1); MONO % 9.7 % (3.8-10.2); NEUT % 71.4 % (42.8-82.8); PLATELET COUNT 342 10^3/uL (134-434); RBC 4.56 M/mm3 (3.60-5.2); RDW 19.2 % (11.6-15.6); WHITE BLOOD COUNT 10.1 K/mm3 (4.0-10.0)
[2022-11-20] MEDS: ENOXAPARIN NA (PORCINE) 60 MG/0.6 ML DISP.SYRIN SQ SCH (09:09)
[2022-11-20] MEDS: CARVEDILOL 6.25 MG TABLET (FP) PO SCH ×2 (09:10→21:38)
[2022-11-20] MEDS: POTASSIUM CHLORIDE TABS 20 MEQ TABLET.ER (FP) PO SCH (09:10)
[2022-11-20] MEDS: PANTOPRAZOLE 40 MG TABLET PO SCH (09:10)
[2022-11-20 09:35] LABS: CALCIUM 8.9 mg/dL (8.5-10.1)
[2022-11-20 09:36] LABS: BLOOD UREA NITROGEN 11.4 mg/dL (7-18)
[2022-11-20 09:39] LABS: CREATININE 0.7 mg/dL (0.55-1.3)
[2022-11-20] MEDS: FLUTICASONE/UMECLIDIN/VILANTER(200-62.5-25 TRELEGY ELLIPTA) INAHLER IH SCH (12:12)
[2022-11-21] MEDS: ACETAMINOPHEN 325 MG TABLET (FP) PO PRN ×3 (02:18→21:09)
[2022-11-21 08:07] LABS: BASO % 0.3 % (0-2.0); EOS % 2.4 % (0-4.5); HEMATOCRIT 33.5 % (32.4-45.2); HEMOGLOBIN 10.7 GM/dL (10.7-15.3); LYMPH % 21.8 % (8-40); MCH 24.6 pg (25.7-33.7); MCHC 31.9 g/dl (32.0-36.0); MEAN CELL VOLUME 77.1 fl (80-96); MONO % 9.1 % (3.8-10.2); NEUT % 66.4 % (42.8-82.8); PLATELET COUNT 357 10^3/uL (134-434); RBC 4.35 M/mm3 (3.60-5.2); RDW 18.9 % (11.6-15.6); WHITE BLOOD COUNT 9.1 K/mm3 (4.0-10.0)
[2022-11-21 08:31] LABS: BLOOD UREA NITROGEN 13.4 mg/dL (7-18); CALCIUM 8.8 mg/dL (8.5-10.1)
[2022-11-21 08:34] LABS: CREATININE 0.6 mg/dL (0.55-1.3)
[2022-11-21] MEDS: POTASSIUM CHLORIDE TABS 20 MEQ TABLET.ER (FP) PO SCH (09:48)
[2022-11-21] MEDS: PANTOPRAZOLE 40 MG TABLET PO SCH (09:48)
[2022-11-21] MEDS: ASPIRIN 325 MG ENTERIC COATED TABLET (FP) PO SCH (09:48)
[2022-11-21] MEDS: FLUTICASONE/UMECLIDIN/VILANTER(200-62.5-25 TRELEGY ELLIPTA) INAHLER IH SCH (09:48)
[2022-11-21] MEDS: CARVEDILOL 6.25 MG TABLET (FP) PO SCH ×2 (09:48→21:09)
[2022-11-21 13:47] LABS: ARTERIAL BLD GAS O2 SATURATION 93.1 % (95-98); ARTERIAL BLOOD GAS BASE EXCESS 11.7 mmol/L (-2-2)
[2022-11-21 13:59] LABS: ALLENS TEST POSITIVE
[2022-11-22] MEDS: CARVEDILOL 6.25 MG TABLET (FP) PO SCH ×2 (10:29→21:26)
[2022-11-22] MEDS: ACETAMINOPHEN 325 MG TABLET (FP) PO PRN ×2 (10:29→21:26)
[2022-11-22] MEDS: PANTOPRAZOLE 40 MG TABLET PO SCH (10:29)
[2022-11-22] MEDS: ASPIRIN 325 MG ENTERIC COATED TABLET (FP) PO SCH (10:29)
[2022-11-22] MEDS: POTASSIUM CHLORIDE TABS 20 MEQ TABLET.ER (FP) PO SCH (10:29)
[2022-11-22] MEDS: FLUTICASONE/UMECLIDIN/VILANTER(200-62.5-25 TRELEGY ELLIPTA) INAHLER IH SCH (12:05)
[2022-11-23 10:06] VITALS: RESP 20
[2022-11-23] MEDS: CARVEDILOL 6.25 MG TABLET (FP) PO SCH (10:06)
[2022-11-23] MEDS: PANTOPRAZOLE 40 MG TABLET PO SCH (10:06)
[2022-11-23] MEDS: POTASSIUM CHLORIDE TABS 20 MEQ TABLET.ER (FP) PO SCH (10:06)
[2022-11-23] MEDS: FLUTICASONE/UMECLIDIN/VILANTER(200-62.5-25 TRELEGY ELLIPTA) INAHLER IH SCH (10:08)
[2022-11-23] MEDS ORDERED: ENOXAPARIN NA (PORCINE) 60 MG/0.6 ML DISP.SYRIN SQ SCH (10:15)
[2022-11-23] MEDS: ASPIRIN 325 MG ENTERIC COATED TABLET (FP) PO SCH (10:21)
[2022-11-23 12:09] LABS: EOS % 3.4 % (0-4.5); HEMATOCRIT 33.9 % (32.4-45.2); HEMOGLOBIN 10.5 GM/dL (10.7-15.3); LYMPH % 11.8 % (8-40); MCH 24.2 pg (25.7-33.7); MCHC 31.1 g/dl (32.0-36.0); MEAN CELL VOLUME 77.6 fl (80-96); MEAN PLT VOLUME 8.1 fl (7.5-11.1); MONO % 11.5 % (3.8-10.2); NEUT % 72.3 % (42.8-82.8); PLATELET COUNT 352 10^3/uL (134-434); RBC 4.36 M/mm3 (3.60-5.2); RDW 19.4 % (11.6-15.6); WHITE BLOOD COUNT 8.1 K/mm3 (4.0-10.0)
[2022-11-23 12:32] LABS: CALCIUM 8.9 mg/dL (8.5-10.1)
[2022-11-23 12:33] LABS: BLOOD UREA NITROGEN 11.5 mg/dL (7-18)
[2022-11-23 12:37] LABS: CREATININE 0.6 mg/dL (0.55-1.3)
[2022-11-23 14:51] VITALS: PULSE 81
[2022-11-23 18:13] VITALS: BP 115/77; TEMP 97.9
== END 2022-11-23 20:16 ==
LOC: JER 00:04 → INTOOBSV 05:56 → JERBED 05:56 → J4W 09:17 → OBSVTOIN 11-20 13:49 → INTOOBSV 11-20 13:49
PROVIDERS: ADMIT Family Medicine; ATTEND Family Medicine
PROC: 3E033NZ Introduction of Analgesics, Hypnotics, Sedatives into Peripheral Vein, Percutaneous Approach (ICD-10-PCS; principal; 2022-11-19)
PROC: 3E023GC Introduction of Other Therapeutic Substance into Muscle, Percutaneous Approach (ICD-10-PCS; 2022-11-19)
DX: R06.89 Other abnormalities of breathing (principal); I89.0 Lymphedema, not elsewhere classified; J44.9 Chronic obstructive pulmonary disease, unspecified; E66.01 Morbid (severe) obesity due to excess calories; Z68.44 Body mass index [BMI] 60.0-69.9, adult; E11.9 Type 2 diabetes mellitus without complications; G47.33 Obstructive sleep apnea (adult) (pediatric); Z87.891 Personal history of nicotine dependence
CPT/HCPCS: 0241U-QW; 36415; 36600; 71045-TC-FY; 73630-TC-LT; 73700-TC-RT; 80048; 80053; 82803; 82962; 83036; 83880; 84443; 84484; 85025; 85379; 93005; 93010; 93970-TC; 94660; 94761; 97116-GP; 97162-GP; G0378

== ENCOUNTER 2023-02-06 21:11 | Inpatient (IN) | payer BC, OTHER ==
[2023-02-06] MEDS ORDERED: methylPREDNISolone NA SUCC 125 MG/2 ML VIAL IVPUSH ONE (22:12)
[2023-02-06] MEDS ORDERED: AZITHROMYCIN IVPB 500 MG in DEXTROSE 5%-WATER - 250 ML IVPB ONE (22:13)
[2023-02-06] MEDS ORDERED: ACETAMINOPHEN 1000 MG/100 ML BAG IVPB ONE (22:13)
[2023-02-06] MEDS ORDERED: CEFTRIAXONE 1 GM in DEXTROSE 5%-WATER - 100 ML IVPB ONE (22:14)
[2023-02-06] MEDS ORDERED: methylPREDNISolone NA SUCC 125 MG/2 ML VIAL ONE (22:22)
[2023-02-06] MEDS ORDERED: CEFTRIAXONE 1 GM/50 ML BAG ONE (22:22)
[2023-02-06] MEDS ORDERED: ALBUTEROL SO4 2.5/IPRATROPIUM 0.5 INH SOL 3 ML VIAL.NEB. NEB ONE (22:22)
[2023-02-06] MEDS ORDERED: ACETAMINOPHEN INJECTION 100 ML IVPB ONE (22:22)
[2023-02-06] MEDS: ALBUTEROL SO4 2.5/IPRATROPIUM 0.5 INH SOL 3 ML VIAL.NEB. NEB SCH ×2 (22:47→22:48)
[2023-02-06 22:53] LABS: EOS % 0.4 % (0-4.5); HEMATOCRIT 36.1 % (32.4-45.2); HEMOGLOBIN 11.1 GM/dL (10.7-15.3); LYMPH % 13.2 % (8-40); MCH 22.4 pg (25.7-33.7); MCHC 30.9 g/dl (32.0-36.0); MEAN CELL VOLUME 72.6 fl (80-96); MEAN PLT VOLUME 7.3 fl (7.5-11.1); MONO % 10.2 % (3.8-10.2); NEUT % 75.2 % (42.8-82.8); PLATELET COUNT 429 10^3/uL (134-434); RBC 4.97 M/mm3 (3.60-5.2); WHITE BLOOD COUNT 14.2 K/mm3 (4.0-10.0)
[2023-02-06 23:00] LABS: INR 1.06 (0.83-1.09); PROTHROMBIN TIME (PATIENT) 12.3 SEC (9.7-13.0)
[2023-02-06 23:03] LABS: ACTIVATED PTT 27.2 SECONDS (25.2-36.5)
[2023-02-06 23:04] LABS: VENOUS BASE EXCESS 10.8 mmol/L (-2-2); VENOUS PCO2 60.5 mmHg (38-52); VENOUS PH 7.411 (7.310-7.410)
[2023-02-06 23:24] LABS: CHLORIDE 84 mmol/L (98-107); POTASSIUM 3.7 mmol/L (3.5-5.1); SODIUM 131 mmol/L (136-145)
[2023-02-06 23:27] LABS: ALBUMIN 3.2 g/dl (3.4-5.0); ANION GAP 10 MMOL/L (8-16); BLOOD UREA NITROGEN 10.4 mg/dL (7-18); CALCIUM 9.3 mg/dL (8.5-10.1); CO2 37 mmol/L (21-32); GLUCOSE,RANDOM 119 mg/dL (74-106); MAGNESIUM 1.8 mg/dL (1.8-2.4)
[2023-02-06 23:30] LABS: CREATININE 0.8 mg/dL (0.55-1.3); SGOT/AST 23 U/L (15-37); SGPT/ALT 23 U/L (13-61)
[2023-02-06 23:32] LABS: BILIRUBIN,TOTAL 0.8 mg/dL (0.2-1); TOT PROT 7.7 g/dl (6.4-8.2)
[2023-02-06 23:33] LABS: ALK PHOS 110 U/L (45-117)
[2023-02-07] MEDS ORDERED: ALBUTEROL SO4 HFA INHALER IH PRN (09:00)
[2023-02-07] MEDS ORDERED: IPRATROPIUM BR 0.02% 0.5 MG/2.5 ML VIAL.NEB. NEB PRN (09:01)
[2023-02-07 09:58] LABS: URINE APPEARANCE CLEAR; URINE BILIRUBIN NEGATIVE (NEGATIVE); URINE COLOR YELLOW; URINE GLUCOSE (UA) NEGATIVE (NEGATIVE); URINE KETONE NEGATIVE (NEGATIVE); URINE LEUK ESTERASE NEGATIVE (NEGATIVE); URINE NITRITE NEGATIVE (NEGATIVE); URINE PROTEIN NEGATIVE (NEGATIVE); URINE UROBILINOGEN 0.2 mg/dL (0.2-1.0)
[2023-02-07] MEDS ORDERED: PIPERACILLIN/TAZOB 3.375 GM 3.375 GM in DEXTROSE 5%-WATER - 50 ML IVPB SCH (10:00)
[2023-02-07] MEDS: PIPERACILLIN/TAZOB 3.375 GM 3.375 GM in DEXTROSE 5%-WATER - 50 ML IVPB SCH ×2 (10:26→18:45)
[2023-02-07] MEDS: methylPREDNISolone NA SUCC 40 MG/1 ML VIAL IVPB SCH ×3 (10:26→21:30)
[2023-02-07] MEDS: ENOXAPARIN NA (PORCINE) 60 MG/0.6 ML DISP.SYRIN SQ SCH ×2 (10:26→21:30)
[2023-02-07 13:40] LABS: BASO % 0.6 % (0-2.0); HEMATOCRIT 37.3 % (32.4-45.2); HEMOGLOBIN 11.6 GM/dL (10.7-15.3); LYMPH % 8.3 % (8-40); MCH 22.7 pg (25.7-33.7); MCHC 31.1 g/dl (32.0-36.0); MEAN CELL VOLUME 73.1 fl (80-96); MEAN PLT VOLUME 7.7 fl (7.5-11.1); MONO % 2.1 % (3.8-10.2); PLATELET COUNT 386 10^3/uL (134-434); RDW 19.8 % (11.6-15.6); WHITE BLOOD COUNT 9.6 K/mm3 (4.0-10.0)
[2023-02-07 13:43] LABS: POTASSIUM 3.9 mmol/L (3.5-5.1)
[2023-02-07 13:45] LABS: LACTIC ACID 2.9 mmol/L (0.4-2.0)
[2023-02-07 13:46] LABS: BLOOD UREA NITROGEN 9.9 mg/dL (7-18)
[2023-02-07 13:48] LABS: CREATININE 0.8 mg/dL (0.55-1.3)
[2023-02-07] MEDS ORDERED: ALBUTEROL SO4 0.083% IH SOL 2.5 MG/3 ML VIAL.NEB. NEB PRN (15:32)
[2023-02-07] MEDS: metFORMIN HCL 500 MG TABLET (FP) PO SCH (18:45)
[2023-02-07] MEDS: BUDESONIDE/FORMETEROL FUMARATE 80/4.5 mcg INHALER IH SCH ×2 (18:45→21:38)
[2023-02-07] MEDS: CARVEDILOL 6.25 MG TABLET (FP) PO SCH (21:30)
[2023-02-08] MEDS: methylPREDNISolone NA SUCC 40 MG/1 ML VIAL IVPB SCH ×4 (03:35→22:40)
[2023-02-08] MEDS: PIPERACILLIN/TAZOB 3.375 GM 3.375 GM in DEXTROSE 5%-WATER - 50 ML IVPB SCH ×2 (03:36→10:34)
[2023-02-08] MEDS: metFORMIN HCL 500 MG TABLET (FP) PO SCH ×2 (06:15→16:50)
[2023-02-08 08:01] LABS: BASO % 0.1 % (0-2.0); HEMATOCRIT 35.7 % (32.4-45.2); HEMOGLOBIN 10.7 GM/dL (10.7-15.3); LYMPH % 5.8 % (8-40); MCH 22.5 pg (25.7-33.7); MCHC 29.8 g/dl (32.0-36.0); MEAN CELL VOLUME 75.3 fl (80-96); MEAN PLT VOLUME 7.9 fl (7.5-11.1); MONO % 5.3 % (3.8-10.2); NEUT % 88.8 % (42.8-82.8); PLATELET COUNT 467 10^3/uL (134-434); RBC 4.74 M/mm3 (3.60-5.2); RDW 19.8 % (11.6-15.6); WHITE BLOOD COUNT 15.4 K/mm3 (4.0-10.0)
[2023-02-08 08:20] LABS: POTASSIUM 3.9 mmol/L (3.5-5.1)
[2023-02-08 08:23] LABS: BLOOD UREA NITROGEN 13.5 mg/dL (7-18); CALCIUM 9.7 mg/dL (8.5-10.1)
[2023-02-08 08:27] LABS: CREATININE 0.8 mg/dL (0.55-1.3)
[2023-02-08] MEDS ORDERED: methylPREDNISolone NA SUCC 1000 MG/8 ML VIAL IVPB ONE (10:19)
[2023-02-08] MEDS: FUROSEMIDE 20 MG TABLET (FP) PO SCH (10:34)
[2023-02-08] MEDS: CARVEDILOL 6.25 MG TABLET (FP) PO SCH ×2 (10:34→22:40)
[2023-02-08] MEDS: PANTOPRAZOLE 40 MG TABLET PO SCH (10:34)
[2023-02-08] MEDS: RAMIPRIL 5 MG CAPSULE PO SCH (10:34)
[2023-02-08] MEDS: POTASSIUM CHLORIDE ORAL LIQUID 20 MEQ/15 ML PO SCH (10:34)
[2023-02-08] MEDS: BUDESONIDE/FORMETEROL FUMARATE 80/4.5 mcg INHALER IH SCH ×2 (10:36→22:44)
[2023-02-08] MEDS: ENOXAPARIN NA (PORCINE) 60 MG/0.6 ML DISP.SYRIN SQ SCH ×2 (10:36→22:40)
[2023-02-08] MEDS: TIOTROPIUM BROMIDE 2.5 MCG (SPIRIVA) RESPIMAT INHALER IH SCH (10:36)
[2023-02-08] MEDS ORDERED: INSULIN (LEVEMIR) 100 UNITS/ML UNITS SQ ONE (13:15)
[2023-02-09] MEDS: methylPREDNISolone NA SUCC 40 MG/1 ML VIAL IVPB SCH ×3 (06:23→21:38)
[2023-02-09] MEDS: metFORMIN HCL 500 MG TABLET (FP) PO SCH ×2 (06:26→16:49)
[2023-02-09] MEDS: INSULIN (LEVEMIR) 100 UNITS/ML UNITS SQ SCH (06:26)
[2023-02-09 07:32] LABS: HEMATOCRIT 38.5 % (32.4-45.2); HEMOGLOBIN 11.7 GM/dL (10.7-15.3); LYMPH % 5.4 % (8-40); MCH 22.6 pg (25.7-33.7); MCHC 30.4 g/dl (32.0-36.0); MEAN CELL VOLUME 74.3 fl (80-96); MEAN PLT VOLUME 7.5 fl (7.5-11.1); MONO % 6.8 % (3.8-10.2); NEUT % 87.8 % (42.8-82.8); PLATELET COUNT 486 10^3/uL (134-434); RBC 5.18 M/mm3 (3.60-5.2); RDW 20.4 % (11.6-15.6)
[2023-02-09 07:56] LABS: POTASSIUM 4.2 mmol/L (3.5-5.1)
[2023-02-09 08:06] LABS: BLOOD UREA NITROGEN 20.3 mg/dL (7-18); CALCIUM 9.7 mg/dL (8.5-10.1); CREATININE 0.9 mg/dL (0.55-1.3)
[2023-02-09] MEDS: RAMIPRIL 5 MG CAPSULE PO SCH (09:29)
[2023-02-09] MEDS: ENOXAPARIN NA (PORCINE) 60 MG/0.6 ML DISP.SYRIN SQ SCH ×2 (09:29→21:38)
[2023-02-09] MEDS: FUROSEMIDE 20 MG TABLET (FP) PO SCH (09:30)
[2023-02-09] MEDS: CARVEDILOL 6.25 MG TABLET (FP) PO SCH ×2 (09:30→21:39)
[2023-02-09] MEDS: POTASSIUM CHLORIDE ORAL LIQUID 20 MEQ/15 ML PO SCH (09:30)
[2023-02-09] MEDS: PANTOPRAZOLE 40 MG TABLET PO SCH (09:30)
[2023-02-09] MEDS: BUDESONIDE/FORMETEROL FUMARATE 80/4.5 mcg INHALER IH SCH ×2 (09:31→21:48)
[2023-02-09] MEDS: TIOTROPIUM BROMIDE 2.5 MCG (SPIRIVA) RESPIMAT INHALER IH SCH (17:40)
[2023-02-10] MEDS: metFORMIN HCL 500 MG TABLET (FP) PO SCH ×2 (06:37→15:43)
[2023-02-10] MEDS: INSULIN (LEVEMIR) 100 UNITS/ML UNITS SQ SCH (06:37)
[2023-02-10] MEDS: methylPREDNISolone NA SUCC 40 MG/1 ML VIAL IVPB SCH ×3 (06:37→21:46)
[2023-02-10 07:46] VITALS: BMI 66.2
[2023-02-10] MEDS: PANTOPRAZOLE 40 MG TABLET PO SCH (09:01)
[2023-02-10] MEDS: RAMIPRIL 5 MG CAPSULE PO SCH (09:01)
[2023-02-10] MEDS: CARVEDILOL 6.25 MG TABLET (FP) PO SCH (09:01)
[2023-02-10] MEDS: POTASSIUM CHLORIDE ORAL LIQUID 20 MEQ/15 ML PO SCH (09:01)
[2023-02-10] MEDS: BUDESONIDE/FORMETEROL FUMARATE 80/4.5 mcg INHALER IH SCH ×2 (09:01→22:59)
[2023-02-10] MEDS: MULTIVITAMINS (DAILY MVI) TABLET (FP) PO SCH (09:01)
[2023-02-10] MEDS: ASCORBIC ACID 250 MG TABLET (FP) PO SCH (09:01)
[2023-02-10] MEDS: ENOXAPARIN NA (PORCINE) 60 MG/0.6 ML DISP.SYRIN SQ SCH ×2 (09:01→21:46)
[2023-02-10] MEDS: FUROSEMIDE 20 MG TABLET (FP) PO SCH (09:01)
[2023-02-10 09:03] LABS: METHADONE, UR NEGATIVE (NEGATIVE); PHENCYCLIDINE,URINE NEGATIVE (NEGATIVE); URINE BENZODIAZEPINES NEGATIVE (NEGATIVE)
[2023-02-10] MEDS: TIOTROPIUM BROMIDE 2.5 MCG (SPIRIVA) RESPIMAT INHALER IH SCH (09:03)
[2023-02-10 09:04] LABS: COCAINE, UR NEGATIVE (NEGATIVE); OPIATES, URI NEGATIVE (NEGATIVE); URINE BARBITURATES NEGATIVE (NEGATIVE)
[2023-02-10 09:07] LABS: URINE AMPHETAMINES NEGATIVE (NEGATIVE)
[2023-02-10] MEDS: CARVEDILOL 12.5 MG TABLET (FP) PO SCH (21:46)
[2023-02-11] MEDS: methylPREDNISolone NA SUCC 40 MG/1 ML VIAL IVPB SCH (05:04)
[2023-02-11] MEDS: metFORMIN HCL 500 MG TABLET (FP) PO SCH ×2 (06:09→16:12)
[2023-02-11] MEDS: INSULIN (LEVEMIR) 100 UNITS/ML UNITS SQ SCH (06:09)
[2023-02-11 08:32] LABS: BASO % 0.2 % (0-2.0); HEMATOCRIT 38.9 % (32.4-45.2); HEMOGLOBIN 11.9 GM/dL (10.7-15.3); LYMPH % 8.8 % (8-40); MCH 23.3 pg (25.7-33.7); MCHC 30.7 g/dl (32.0-36.0); MEAN CELL VOLUME 75.9 fl (80-96); MONO % 6.9 % (3.8-10.2); NEUT % 84.1 % (42.8-82.8); PLATELET COUNT 433 10^3/uL (134-434); RBC 5.13 M/mm3 (3.60-5.2); RDW 20.4 % (11.6-15.6); WHITE BLOOD COUNT 13.5 K/mm3 (4.0-10.0)
[2023-02-11 08:54] LABS: POTASSIUM 4.9 mmol/L (3.5-5.1)
[2023-02-11 09:15] LABS: CALCIUM 9.6 mg/dL (8.5-10.1)
[2023-02-11 09:16] LABS: BLOOD UREA NITROGEN 24.5 mg/dL (7-18)
[2023-02-11 09:19] LABS: CREATININE 0.8 mg/dL (0.55-1.3)
[2023-02-11] MEDS: ENOXAPARIN NA (PORCINE) 60 MG/0.6 ML DISP.SYRIN SQ SCH ×2 (09:23→21:33)
[2023-02-11] MEDS: POTASSIUM CHLORIDE ORAL LIQUID 20 MEQ/15 ML PO SCH (09:24)
[2023-02-11] MEDS: PANTOPRAZOLE 40 MG TABLET PO SCH (09:24)
[2023-02-11] MEDS: RAMIPRIL 5 MG CAPSULE PO SCH (09:24)
[2023-02-11] MEDS: FUROSEMIDE 20 MG TABLET (FP) PO SCH (09:24)
[2023-02-11] MEDS: ASCORBIC ACID 250 MG TABLET (FP) PO SCH (09:24)
[2023-02-11] MEDS: CARVEDILOL 12.5 MG TABLET (FP) PO SCH ×2 (09:24→21:33)
[2023-02-11] MEDS: MULTIVITAMINS (DAILY MVI) TABLET (FP) PO SCH (09:24)
[2023-02-11] MEDS: TIOTROPIUM BROMIDE 2.5 MCG (SPIRIVA) RESPIMAT INHALER IH SCH (09:25)
[2023-02-11] MEDS: BUDESONIDE/FORMETEROL FUMARATE 80/4.5 mcg INHALER IH SCH ×2 (09:25→21:34)
[2023-02-11] MEDS: predniSONE 20 MG TABLET (UD) PO SCH (12:39)
[2023-02-12] MEDS: INSULIN (LEVEMIR) 100 UNITS/ML UNITS SQ SCH (06:26)
[2023-02-12] MEDS: metFORMIN HCL 500 MG TABLET (FP) PO SCH ×2 (06:27→16:57)
[2023-02-12] MEDS: PANTOPRAZOLE 40 MG TABLET PO SCH (10:42)
[2023-02-12] MEDS: FUROSEMIDE 20 MG TABLET (FP) PO SCH (10:42)
[2023-02-12] MEDS: TIOTROPIUM BROMIDE 2.5 MCG (SPIRIVA) RESPIMAT INHALER IH SCH (10:42)
[2023-02-12] MEDS: RAMIPRIL 5 MG CAPSULE PO SCH (10:42)
[2023-02-12] MEDS: predniSONE 20 MG TABLET (UD) PO SCH (10:42)
[2023-02-12] MEDS: ASCORBIC ACID 250 MG TABLET (FP) PO SCH (10:42)
[2023-02-12] MEDS: BUDESONIDE/FORMETEROL FUMARATE 80/4.5 mcg INHALER IH SCH ×2 (10:42→21:17)
[2023-02-12] MEDS: CARVEDILOL 12.5 MG TABLET (FP) PO SCH ×2 (10:42→21:17)
[2023-02-12] MEDS: MULTIVITAMINS (DAILY MVI) TABLET (FP) PO SCH (10:42)
[2023-02-12] MEDS: POTASSIUM CHLORIDE ORAL LIQUID 20 MEQ/15 ML PO SCH (10:46)
[2023-02-13 05:55] VITALS: RESP 20
[2023-02-13] MEDS: metFORMIN HCL 500 MG TABLET (FP) PO SCH ×2 (08:00→17:26)
[2023-02-13] MEDS: INSULIN (LEVEMIR) 100 UNITS/ML UNITS SQ SCH (08:00)
[2023-02-13] MEDS: RAMIPRIL 5 MG CAPSULE PO SCH (10:12)
[2023-02-13] MEDS: ASCORBIC ACID 250 MG TABLET (FP) PO SCH (10:13)
[2023-02-13] MEDS: CARVEDILOL 12.5 MG TABLET (FP) PO SCH (10:13)
[2023-02-13] MEDS: PANTOPRAZOLE 40 MG TABLET PO SCH (10:14)
[2023-02-13] MEDS: MULTIVITAMINS (DAILY MVI) TABLET (FP) PO SCH (10:15)
[2023-02-13] MEDS: POTASSIUM CHLORIDE ORAL LIQUID 20 MEQ/15 ML PO SCH (10:15)
[2023-02-13] MEDS: FUROSEMIDE 20 MG TABLET (FP) PO SCH (10:15)
[2023-02-13] MEDS: predniSONE 20 MG TABLET (UD) PO SCH (10:17)
[2023-02-13] MEDS: TIOTROPIUM BROMIDE 2.5 MCG (SPIRIVA) RESPIMAT INHALER IH SCH (10:18)
[2023-02-13] MEDS: BUDESONIDE/FORMETEROL FUMARATE 80/4.5 mcg INHALER IH SCH (10:18)
[2023-02-13 13:10] VITALS: BP 139/72; PULSE 100; TEMP 98.2
== END 2023-02-13 20:59 | DRG 190 ==
LOC: JER 21:11 → JERBED 02-07 00:38 → J4W 02-07 03:43
PROVIDERS: ADMIT Family Medicine; ATTEND Family Medicine
PROC: 5A09557 Assistance with Respiratory Ventilation, Greater than 96 Consecutive Hours, Continuous Positive Airway Pressure (ICD-10-PCS; principal; 2023-02-07)
DX: J44.1 Chronic obstructive pulmonary disease with (acute) exacerbation (principal); J96.21 Acute and chronic respiratory failure with hypoxia; J96.22 Acute and chronic respiratory failure with hypercapnia; E66.2 Morbid (severe) obesity with alveolar hypoventilation; Z68.44 Body mass index [BMI] 60.0-69.9, adult; J98.11 Atelectasis; G47.33 Obstructive sleep apnea (adult) (pediatric)
CPT/HCPCS: 0241U-QW; 36415; 70450-TC; 71045-TC-FY; 71275-TC; 73610-TC-LT-FY; 73630-TC-LT; 80048; 80053; 80307; 81003; 82550; 82553; 82803; 82962; 83605; 83735; 84484; 85025; 85379; 85610; 85730; 87086; 93005; 93010; 93306-TC; 93880-TC; 94660; 97116-GP; 97162-GP; 99285-25; Q9967

== ENCOUNTER 2023-03-11 16:40 | Inpatient (IN) | payer BC, OTHER ==
[2023-03-11] MEDS ORDERED: methylPREDNISolone NA SUCC 125 MG/2 ML VIAL IVPUSH ONE (17:12)
[2023-03-11] MEDS ORDERED: ALBUTEROL SO4 2.5/IPRATROPIUM 0.5 INH SOL 3 ML VIAL.NEB. NEB ONE (17:48)
[2023-03-11] MEDS ORDERED: methylPREDNISolone NA SUCC 125 MG/2 ML VIAL ONE (17:48)
[2023-03-11] MEDS: ALBUTEROL SO4 2.5/IPRATROPIUM 0.5 INH SOL 3 ML VIAL.NEB. NEB SCH ×4 (17:55→19:07)
[2023-03-11 17:59] LABS: BASO % 0.8 % (0-2.0); EOS % 0.4 % (0-4.5); HEMATOCRIT 36.4 % (32.4-45.2); HEMOGLOBIN 11.4 GM/dL (10.7-15.3); LYMPH % 15.4 % (8-40); MCH 23.4 pg (25.7-33.7); MCHC 31.3 g/dl (32.0-36.0); MEAN CELL VOLUME 74.6 fl (80-96); MEAN PLT VOLUME 7.5 fl (7.5-11.1); MONO % 14.4 % (3.8-10.2); PLATELET COUNT 368 10^3/uL (134-434); RBC 4.88 M/mm3 (3.60-5.2); WHITE BLOOD COUNT 10.8 K/mm3 (4.0-10.0)
[2023-03-11 18:01] LABS: VENOUS BASE EXCESS 13.4 mmol/L (-2-2); VENOUS O2 SATURATION 80.6 % (70-80); VENOUS PH 7.376 (7.310-7.410)
[2023-03-11 18:02] LABS: VENOUS PCO2 72.6 mmHg (38-52)
[2023-03-11 18:20] LABS: POTASSIUM 4.8 mmol/L (3.5-5.1)
[2023-03-11 18:22] LABS: ALBUMIN 3.1 g/dl (3.4-5.0); BLOOD UREA NITROGEN 9.5 mg/dL (7-18); CALCIUM 8.7 mg/dL (8.5-10.1)
[2023-03-11 18:25] LABS: CREATININE 0.8 mg/dL (0.55-1.3)
[2023-03-11 18:27] LABS: ANISOCYTOSIS 2+; BILIRUBIN,TOTAL 0.2 mg/dL (0.2-1); MACROCYTOSIS 0; TARGET CELLS 1+; TEAR DROP CELLS 1+; TOT PROT 7.5 g/dl (6.4-8.2)
[2023-03-11 18:29] LABS: THROAT:GRP A STREP NOT DETECTED (NOTDETECTED)
[2023-03-11 18:30] LABS: N-TERMINAL BNP 191.8 pg/ml (5-125)
[2023-03-11] MEDS ORDERED: MAGNESIUM SULF 50% (8.12 MEQ/2 ML-1 GM VIAL) IVPB ONE (18:57)
[2023-03-11] MEDS ORDERED: MAGNESIUM SULFATE IN WATER 2 GM/50 ML IVPB IVPB ONE (19:00)
[2023-03-11] MEDS ORDERED: REMDESIVIR 200 MG in SODIUM CHLORIDE 250 ML IVPB ONE (21:49)
[2023-03-11] MEDS ORDERED: INSULIN (LEVEMIR) 100 UNITS/ML UNITS SQ ONE (23:14)
[2023-03-11] MEDS: INSULIN (LEVEMIR) 100 UNITS/ML UNITS SQ SCH (23:33)
[2023-03-12 04:26] VITALS: BMI 66.4
[2023-03-12 09:40] LABS: BASO % 0.5 % (0-2.0); HEMATOCRIT 35.9 % (32.4-45.2); MCH 23.4 pg (25.7-33.7); MCHC 30.6 g/dl (32.0-36.0); MEAN CELL VOLUME 76.4 fl (80-96); MEAN PLT VOLUME 8.1 fl (7.5-11.1); NEUT % 79.5 % (42.8-82.8); PLATELET COUNT 349 10^3/uL (134-434); RBC 4.69 M/mm3 (3.60-5.2); RDW 21.9 % (11.6-15.6); WHITE BLOOD COUNT 7.4 K/mm3 (4.0-10.0)
[2023-03-12 09:50] LABS: POTASSIUM 4.2 mmol/L (3.5-5.1)
[2023-03-12 10:00] LABS: CALCIUM 9.5 mg/dL (8.5-10.1)
[2023-03-12] MEDS ORDERED: FUROSEMIDE 40 MG TABLET (FP) PO SCH (10:00)
[2023-03-12] MEDS ORDERED: predniSONE 10 MG TABLET (UD) PO SCH (10:00)
[2023-03-12 10:01] LABS: ALBUMIN 3.2 g/dl (3.4-5.0); BLOOD UREA NITROGEN 8.3 mg/dL (7-18)
[2023-03-12 10:04] LABS: CREATININE 0.7 mg/dL (0.55-1.3)
[2023-03-12 10:06] LABS: BILIRUBIN,TOTAL 0.1 mg/dL (0.2-1); TOT PROT 7.5 g/dl (6.4-8.2)
[2023-03-12] MEDS ORDERED: INSULIN (NOVOLOG) ASPART 100 UNITS/ML 10ML VIAL ONE (12:14)
[2023-03-12] MEDS: ASPIRIN COATED 81 MG TABLET.EC PO SCH (12:15)
[2023-03-12] MEDS: RAMIPRIL 5 MG CAPSULE PO SCH (12:15)
[2023-03-12] MEDS: PANTOPRAZOLE 40 MG TABLET PO SCH (12:15)
[2023-03-12] MEDS: FUROSEMIDE 40 MG/4 ML INJECTABLE VIAL IVPUSH SCH (12:16)
[2023-03-12] MEDS: FLUTICASONE/UMECLIDIN/VILANTER(200-62.5-25 TRELEGY ELLIPTA) INAHLER IH SCH (12:36)
[2023-03-12] MEDS: REMDESIVIR 100 MG in SODIUM CHLORIDE 250 ML IVPB SCH (15:54)
[2023-03-12] MEDS: INSULIN (LEVEMIR) 100 UNITS/ML UNITS SQ SCH (22:39)
[2023-03-12] MEDS: CARVEDILOL 6.25 MG TABLET (FP) PO SCH (22:39)
[2023-03-13] MEDS ORDERED: BENZOCAINE/MENTH/CETYLPYRD CL 1 EACH LOZENGE MM PRN (09:53)
[2023-03-13 10:19] LABS: BASO % 0.4 % (0-2.0); EOS % 0.1 % (0-4.5); HEMATOCRIT 37.3 % (32.4-45.2); HEMOGLOBIN 11.3 GM/dL (10.7-15.3); MCH 23.7 pg (25.7-33.7); MCHC 30.3 g/dl (32.0-36.0); MEAN CELL VOLUME 78.3 fl (80-96); MEAN PLT VOLUME 8.2 fl (7.5-11.1); MONO % 14.2 % (3.8-10.2); NEUT % 61.3 % (42.8-82.8); PLATELET COUNT 369 10^3/uL (134-434); RBC 4.76 M/mm3 (3.60-5.2); RDW 22.7 % (11.6-15.6); WHITE BLOOD COUNT 10.5 K/mm3 (4.0-10.0)
[2023-03-13 10:32] LABS: POTASSIUM 3.8 mmol/L (3.5-5.1)
[2023-03-13] MEDS: FUROSEMIDE 40 MG/4 ML INJECTABLE VIAL IVPUSH SCH (10:32)
[2023-03-13] MEDS: PANTOPRAZOLE 40 MG TABLET PO SCH (10:32)
[2023-03-13] MEDS: CARVEDILOL 6.25 MG TABLET (FP) PO SCH ×2 (10:32→21:52)
[2023-03-13] MEDS: DEXAMETHASONE SOD PHOSPHATE 10 MG/1 ML VIAL IVPUSH SCH (10:32)
[2023-03-13] MEDS: ASPIRIN COATED 81 MG TABLET.EC PO SCH (10:32)
[2023-03-13] MEDS: RAMIPRIL 5 MG CAPSULE PO SCH (10:32)
[2023-03-13] MEDS: REMDESIVIR 100 MG in SODIUM CHLORIDE 250 ML IVPB SCH (10:33)
[2023-03-13] MEDS: FLUTICASONE/UMECLIDIN/VILANTER(200-62.5-25 TRELEGY ELLIPTA) INAHLER IH SCH (10:33)
[2023-03-13 10:38] LABS: CALCIUM 9.1 mg/dL (8.5-10.1)
[2023-03-13 10:42] LABS: CREATININE 0.8 mg/dL (0.55-1.3)
[2023-03-13] MEDS ORDERED: AZITHROMYCIN 250 MG TABLET PO ONE (10:45)
[2023-03-13] MEDS: INSULIN (LEVEMIR) 100 UNITS/ML UNITS SQ SCH (21:52)
[2023-03-14 08:55] LABS: BASO % 0.4 % (0-2.0); HEMATOCRIT 35.3 % (32.4-45.2); HEMOGLOBIN 11.2 GM/dL (10.7-15.3); LYMPH % 13.4 % (8-40); MCH 24.1 pg (25.7-33.7); MCHC 31.6 g/dl (32.0-36.0); MEAN CELL VOLUME 76.1 fl (80-96); MEAN PLT VOLUME 7.8 fl (7.5-11.1); MONO % 13.9 % (3.8-10.2); NEUT % 72.3 % (42.8-82.8); PLATELET COUNT 346 10^3/uL (134-434); RBC 4.64 M/mm3 (3.60-5.2); RDW 22.2 % (11.6-15.6); WHITE BLOOD COUNT 10.6 K/mm3 (4.0-10.0)
[2023-03-14 09:15] LABS: POTASSIUM 4.2 mmol/L (3.5-5.1)
[2023-03-14 09:22] LABS: BLOOD UREA NITROGEN 20.1 mg/dL (7-18); CALCIUM 8.7 mg/dL (8.5-10.1)
[2023-03-14 09:25] LABS: CREATININE 0.6 mg/dL (0.55-1.3)
[2023-03-14] MEDS ORDERED: AZITHROMYCIN 250 MG TABLET PO SCH (10:00)
[2023-03-14] MEDS: DEXAMETHASONE SOD PHOSPHATE 10 MG/1 ML VIAL IVPUSH SCH (11:38)
[2023-03-14] MEDS: POLYETHYLENE GLYCOL (HEALTHYLAX) 3350 17 GM PACKET PO SCH (11:38)
[2023-03-14] MEDS: REMDESIVIR 100 MG in SODIUM CHLORIDE 250 ML IVPB SCH (11:38)
[2023-03-14] MEDS: FUROSEMIDE 40 MG/4 ML INJECTABLE VIAL IVPUSH SCH (11:38)
[2023-03-14] MEDS: PANTOPRAZOLE 40 MG TABLET PO SCH (11:39)
[2023-03-14] MEDS: RAMIPRIL 5 MG CAPSULE PO SCH (11:39)
[2023-03-14] MEDS: ASPIRIN COATED 81 MG TABLET.EC PO SCH (11:39)
[2023-03-14] MEDS: CARVEDILOL 6.25 MG TABLET (FP) PO SCH ×2 (11:39→21:32)
[2023-03-14] MEDS: LORATADINE 10 MG TABLET PO SCH (11:40)
[2023-03-14] MEDS: FLUTICASONE PROP 0.05% 16 GM NASAL SPRAY NS SCH (11:41)
[2023-03-14] MEDS: FLUTICASONE/UMECLIDIN/VILANTER(200-62.5-25 TRELEGY ELLIPTA) INAHLER IH SCH (11:41)
[2023-03-14] MEDS ORDERED: FLUCONAZOLE 150 MG TABLET PO ONE (13:24)
[2023-03-14] MEDS: INSULIN (LEVEMIR) 100 UNITS/ML UNITS SQ SCH (21:36)
[2023-03-15 08:26] LABS: BASO % 0.7 % (0-2.0); HEMATOCRIT 36.7 % (32.4-45.2); HEMOGLOBIN 11.2 GM/dL (10.7-15.3); LYMPH % 17.3 % (8-40); MCH 23.4 pg (25.7-33.7); MCHC 30.6 g/dl (32.0-36.0); MEAN CELL VOLUME 76.4 fl (80-96); MEAN PLT VOLUME 7.7 fl (7.5-11.1); MONO % 10.9 % (3.8-10.2); NEUT % 71.1 % (42.8-82.8); PLATELET COUNT 356 10^3/uL (134-434); RDW 22.4 % (11.6-15.6); WHITE BLOOD COUNT 10.1 K/mm3 (4.0-10.0)
[2023-03-15 08:47] LABS: POTASSIUM 4.3 mmol/L (3.5-5.1)
[2023-03-15 08:51] LABS: CALCIUM 8.8 mg/dL (8.5-10.1)
[2023-03-15 08:54] LABS: CREATININE 0.7 mg/dL (0.55-1.3)
[2023-03-15 09:28] LABS: ANISOCYTOSIS 3+; MACROCYTOSIS 0
[2023-03-15] MEDS ORDERED: AZITHROMYCIN 500 MG TABLET PO SCH (10:00)
[2023-03-15] MEDS: FUROSEMIDE 40 MG/4 ML INJECTABLE VIAL IVPUSH SCH (12:54)
[2023-03-15] MEDS: DEXAMETHASONE SOD PHOSPHATE 10 MG/1 ML VIAL IVPUSH SCH (12:54)
[2023-03-15] MEDS: FLUCONAZOLE 100 MG TABLET (UD) PO SCH (12:54)
[2023-03-15] MEDS: CARVEDILOL 6.25 MG TABLET (FP) PO SCH ×2 (12:55→22:01)
[2023-03-15] MEDS: REMDESIVIR 100 MG in SODIUM CHLORIDE 250 ML IVPB SCH (12:55)
[2023-03-15] MEDS: AZITHROMYCIN 250 MG TABLET PO SCH (12:55)
[2023-03-15] MEDS: RAMIPRIL 5 MG CAPSULE PO SCH (13:29)
[2023-03-15] MEDS: FLUTICASONE/UMECLIDIN/VILANTER(200-62.5-25 TRELEGY ELLIPTA) INAHLER IH SCH (13:30)
[2023-03-15] MEDS: LORATADINE 10 MG TABLET PO SCH (13:30)
[2023-03-15] MEDS: FLUTICASONE PROP 0.05% 16 GM NASAL SPRAY NS SCH (13:30)
[2023-03-15] MEDS: ASPIRIN COATED 81 MG TABLET.EC PO SCH (13:30)
[2023-03-15] MEDS: PANTOPRAZOLE 40 MG TABLET PO SCH (13:30)
[2023-03-15] MEDS: POLYETHYLENE GLYCOL (HEALTHYLAX) 3350 17 GM PACKET PO SCH ×2 (13:31→13:32)
[2023-03-15] MEDS: INSULIN (LEVEMIR) 100 UNITS/ML UNITS SQ SCH (22:01)
[2023-03-16] MEDS ORDERED: LISINOPRIL 5 MG TABLET PO SCH (10:00)
[2023-03-16 10:14] LABS: BASO % 0.4 % (0-2.0); HEMATOCRIT 38.8 % (32.4-45.2); HEMOGLOBIN 11.3 GM/dL (10.7-15.3); LYMPH % 18.9 % (8-40); MCH 22.6 pg (25.7-33.7); MCHC 29.2 g/dl (32.0-36.0); MEAN CELL VOLUME 77.3 fl (80-96); MEAN PLT VOLUME 8.3 fl (7.5-11.1); MONO % 10.7 % (3.8-10.2); PLATELET COUNT 369 10^3/uL (134-434); RBC 5.01 M/mm3 (3.60-5.2); RDW 22.3 % (11.6-15.6); WHITE BLOOD COUNT 12.7 K/mm3 (4.0-10.0)
[2023-03-16] MEDS: CARVEDILOL 6.25 MG TABLET (FP) PO SCH ×2 (10:18→22:18)
[2023-03-16] MEDS: FUROSEMIDE 40 MG/4 ML INJECTABLE VIAL IVPUSH SCH (10:18)
[2023-03-16] MEDS: RAMIPRIL 5 MG CAPSULE PO SCH (10:18)
[2023-03-16] MEDS: LORATADINE 10 MG TABLET PO SCH (10:18)
[2023-03-16] MEDS: POLYETHYLENE GLYCOL (HEALTHYLAX) 3350 17 GM PACKET PO SCH (10:18)
[2023-03-16] MEDS: PANTOPRAZOLE 40 MG TABLET PO SCH (10:18)
[2023-03-16] MEDS: AZITHROMYCIN 250 MG TABLET PO SCH (10:18)
[2023-03-16] MEDS: DEXAMETHASONE SOD PHOSPHATE 10 MG/1 ML VIAL IVPUSH SCH (10:18)
[2023-03-16] MEDS: ASPIRIN COATED 81 MG TABLET.EC PO SCH (10:18)
[2023-03-16] MEDS: FLUTICASONE PROP 0.05% 16 GM NASAL SPRAY NS SCH (10:19)
[2023-03-16] MEDS: FLUTICASONE/UMECLIDIN/VILANTER(200-62.5-25 TRELEGY ELLIPTA) INAHLER IH SCH (10:19)
[2023-03-16 10:30] LABS: POTASSIUM 4.3 mmol/L (3.5-5.1)
[2023-03-16 10:54] LABS: BLOOD UREA NITROGEN 19.4 mg/dL (7-18); CALCIUM 8.8 mg/dL (8.5-10.1)
[2023-03-16 10:58] LABS: CREATININE 0.7 mg/dL (0.55-1.3)
[2023-03-16] MEDS: INSULIN (LEVEMIR) 100 UNITS/ML UNITS SQ SCH (22:18)
[2023-03-17] MEDS: FLUCONAZOLE 100 MG TABLET (UD) PO SCH ×2 (04:21→11:29)
[2023-03-17 09:06] LABS: BASO % 0.5 % (0-2.0); HEMATOCRIT 37.8 % (32.4-45.2); HEMOGLOBIN 11.4 GM/dL (10.7-15.3); LYMPH % 14.7 % (8-40); MCH 23.1 pg (25.7-33.7); MCHC 30.1 g/dl (32.0-36.0); MEAN CELL VOLUME 76.5 fl (80-96); MEAN PLT VOLUME 8.3 fl (7.5-11.1); MONO % 10.2 % (3.8-10.2); NEUT % 74.6 % (42.8-82.8); PLATELET COUNT 398 10^3/uL (134-434); RBC 4.94 M/mm3 (3.60-5.2); RDW 22.2 % (11.6-15.6); WHITE BLOOD COUNT 13.4 K/mm3 (4.0-10.0)
[2023-03-17 09:24] LABS: POTASSIUM 4.6 mmol/L (3.5-5.1)
[2023-03-17 09:29] LABS: CALCIUM 9.2 mg/dL (8.5-10.1)
[2023-03-17 09:30] LABS: BLOOD UREA NITROGEN 18.3 mg/dL (7-18)
[2023-03-17 09:33] LABS: CREATININE 0.7 mg/dL (0.55-1.3)
[2023-03-17] MEDS: FUROSEMIDE 40 MG/4 ML INJECTABLE VIAL IVPUSH SCH (11:28)
[2023-03-17] MEDS: DEXAMETHASONE SOD PHOSPHATE 10 MG/1 ML VIAL IVPUSH SCH (11:28)
[2023-03-17] MEDS: PANTOPRAZOLE 40 MG TABLET PO SCH (11:29)
[2023-03-17] MEDS: AZITHROMYCIN 250 MG TABLET PO SCH (11:29)
[2023-03-17] MEDS: CARVEDILOL 6.25 MG TABLET (FP) PO SCH ×2 (11:29→22:39)
[2023-03-17] MEDS: ASPIRIN COATED 81 MG TABLET.EC PO SCH (11:29)
[2023-03-17] MEDS: RAMIPRIL 5 MG CAPSULE PO SCH (11:29)
[2023-03-17] MEDS: LORATADINE 10 MG TABLET PO SCH (11:29)
[2023-03-17] MEDS: POLYETHYLENE GLYCOL (HEALTHYLAX) 3350 17 GM PACKET PO SCH (12:16)
[2023-03-17] MEDS: FLUTICASONE/UMECLIDIN/VILANTER(200-62.5-25 TRELEGY ELLIPTA) INAHLER IH SCH (12:19)
[2023-03-17] MEDS: FLUTICASONE PROP 0.05% 16 GM NASAL SPRAY NS SCH (12:19)
[2023-03-17] MEDS: INSULIN (LEVEMIR) 100 UNITS/ML UNITS SQ SCH (22:39)
[2023-03-18] MEDS: DEXAMETHASONE SOD PHOSPHATE 10 MG/1 ML VIAL IVPUSH SCH (09:14)
[2023-03-18] MEDS: CARVEDILOL 6.25 MG TABLET (FP) PO SCH ×2 (09:14→21:36)
[2023-03-18] MEDS: LORATADINE 10 MG TABLET PO SCH (09:14)
[2023-03-18] MEDS: PANTOPRAZOLE 40 MG TABLET PO SCH (09:14)
[2023-03-18] MEDS: ASPIRIN COATED 81 MG TABLET.EC PO SCH (09:14)
[2023-03-18] MEDS: RAMIPRIL 5 MG CAPSULE PO SCH (09:14)
[2023-03-18] MEDS: FLUTICASONE/UMECLIDIN/VILANTER(200-62.5-25 TRELEGY ELLIPTA) INAHLER IH SCH (09:15)
[2023-03-18] MEDS: FUROSEMIDE 40 MG/4 ML INJECTABLE VIAL IVPUSH SCH (09:15)
[2023-03-18] MEDS: FLUCONAZOLE 100 MG TABLET (UD) PO SCH (09:19)
[2023-03-18] MEDS: POLYETHYLENE GLYCOL (HEALTHYLAX) 3350 17 GM PACKET PO SCH (09:20)
[2023-03-18] MEDS: FLUTICASONE PROP 0.05% 16 GM NASAL SPRAY NS SCH (09:28)
[2023-03-18] MEDS: INSULIN (LEVEMIR) 100 UNITS/ML UNITS SQ SCH (21:39)
[2023-03-19 10:15] LABS: BASO % 0.1 % (0-2.0); HEMATOCRIT 38.3 % (32.4-45.2); HEMOGLOBIN 11.6 GM/dL (10.7-15.3); LYMPH % 16.1 % (8-40); MCH 23.2 pg (25.7-33.7); MCHC 30.2 g/dl (32.0-36.0); MEAN CELL VOLUME 76.7 fl (80-96); MEAN PLT VOLUME 8.4 fl (7.5-11.1); MONO % 8.9 % (3.8-10.2); NEUT % 74.9 % (42.8-82.8); PLATELET COUNT 402 10^3/uL (134-434); RBC 4.99 M/mm3 (3.60-5.2); RDW 21.5 % (11.6-15.6); WHITE BLOOD COUNT 15.4 K/mm3 (4.0-10.0)
[2023-03-19 10:21] LABS: POTASSIUM 4.7 mmol/L (3.5-5.1)
[2023-03-19 10:24] LABS: CALCIUM 8.8 mg/dL (8.5-10.1)
[2023-03-19 10:28] LABS: CREATININE 0.7 mg/dL (0.55-1.3)
[2023-03-19 10:44] LABS: ANISOCYTOSIS 2+; MACROCYTOSIS 0; TARGET CELLS 1+
[2023-03-19] MEDS: RAMIPRIL 5 MG CAPSULE PO SCH (11:08)
[2023-03-19] MEDS: CARVEDILOL 6.25 MG TABLET (FP) PO SCH ×2 (11:08→21:28)
[2023-03-19] MEDS: ASPIRIN COATED 81 MG TABLET.EC PO SCH (11:08)
[2023-03-19] MEDS: LORATADINE 10 MG TABLET PO SCH (11:08)
[2023-03-19] MEDS: PANTOPRAZOLE 40 MG TABLET PO SCH (11:09)
[2023-03-19] MEDS: FUROSEMIDE 40 MG/4 ML INJECTABLE VIAL IVPUSH SCH (11:09)
[2023-03-19] MEDS: DEXAMETHASONE SOD PHOSPHATE 10 MG/1 ML VIAL IVPUSH SCH (11:09)
[2023-03-19] MEDS: FLUCONAZOLE 100 MG TABLET (UD) PO SCH (11:09)
[2023-03-19] MEDS: FLUTICASONE PROP 0.05% 16 GM NASAL SPRAY NS SCH (11:10)
[2023-03-19] MEDS: POLYETHYLENE GLYCOL (HEALTHYLAX) 3350 17 GM PACKET PO SCH (11:10)
[2023-03-19] MEDS: FLUTICASONE/UMECLIDIN/VILANTER(200-62.5-25 TRELEGY ELLIPTA) INAHLER IH SCH (11:17)
[2023-03-19] MEDS: INSULIN (LEVEMIR) 100 UNITS/ML UNITS SQ SCH (21:28)
[2023-03-20] MEDS: FLUCONAZOLE 100 MG TABLET (UD) PO SCH (11:11)
[2023-03-20] MEDS: CARVEDILOL 6.25 MG TABLET (FP) PO SCH ×2 (11:11→22:16)
[2023-03-20] MEDS: PANTOPRAZOLE 40 MG TABLET PO SCH (11:11)
[2023-03-20] MEDS: LORATADINE 10 MG TABLET PO SCH (11:11)
[2023-03-20] MEDS: ASPIRIN COATED 81 MG TABLET.EC PO SCH (11:11)
[2023-03-20] MEDS: RAMIPRIL 5 MG CAPSULE PO SCH (11:11)
[2023-03-20] MEDS: POLYETHYLENE GLYCOL (HEALTHYLAX) 3350 17 GM PACKET PO SCH (11:12)
[2023-03-20] MEDS: FUROSEMIDE 40 MG/4 ML INJECTABLE VIAL IVPUSH SCH (11:12)
[2023-03-20] MEDS: DEXAMETHASONE SOD PHOSPHATE 10 MG/1 ML VIAL IVPUSH SCH (11:12)
[2023-03-20] MEDS: FLUTICASONE PROP 0.05% 16 GM NASAL SPRAY NS SCH (11:17)
[2023-03-20] MEDS: FLUTICASONE/UMECLIDIN/VILANTER(200-62.5-25 TRELEGY ELLIPTA) INAHLER IH SCH (11:17)
[2023-03-20] MEDS: INSULIN (LEVEMIR) 100 UNITS/ML UNITS SQ SCH (22:16)
[2023-03-21] MEDS: RAMIPRIL 5 MG CAPSULE PO SCH (10:56)
[2023-03-21] MEDS: CARVEDILOL 6.25 MG TABLET (FP) PO SCH ×2 (10:56→22:33)
[2023-03-21] MEDS: PANTOPRAZOLE 40 MG TABLET PO SCH (10:56)
[2023-03-21] MEDS: FUROSEMIDE 40 MG/4 ML INJECTABLE VIAL IVPUSH SCH (10:56)
[2023-03-21] MEDS: DEXAMETHASONE SOD PHOSPHATE 10 MG/1 ML VIAL IVPUSH SCH (10:56)
[2023-03-21] MEDS: LORATADINE 10 MG TABLET PO SCH (10:56)
[2023-03-21] MEDS: ASPIRIN COATED 81 MG TABLET.EC PO SCH (10:56)
[2023-03-21] MEDS: POLYETHYLENE GLYCOL (HEALTHYLAX) 3350 17 GM PACKET PO SCH (10:56)
[2023-03-21] MEDS: FLUTICASONE PROP 0.05% 16 GM NASAL SPRAY NS SCH (10:57)
[2023-03-21] MEDS: FLUTICASONE/UMECLIDIN/VILANTER(200-62.5-25 TRELEGY ELLIPTA) INAHLER IH SCH (11:00)
[2023-03-21] MEDS: INSULIN (LEVEMIR) 100 UNITS/ML UNITS SQ SCH (22:33)
[2023-03-22] MEDS: POLYETHYLENE GLYCOL (HEALTHYLAX) 3350 17 GM PACKET PO SCH (10:39)
[2023-03-22] MEDS: RAMIPRIL 5 MG CAPSULE PO SCH (10:39)
[2023-03-22] MEDS: PANTOPRAZOLE 40 MG TABLET PO SCH (10:39)
[2023-03-22] MEDS: ASPIRIN COATED 81 MG TABLET.EC PO SCH (10:39)
[2023-03-22] MEDS: LORATADINE 10 MG TABLET PO SCH (10:39)
[2023-03-22] MEDS: CARVEDILOL 6.25 MG TABLET (FP) PO SCH ×2 (10:39→22:55)
[2023-03-22] MEDS: DEXAMETHASONE SOD PHOSPHATE 10 MG/1 ML VIAL IVPUSH SCH (10:39)
[2023-03-22] MEDS: FUROSEMIDE 40 MG/4 ML INJECTABLE VIAL IVPUSH SCH (10:40)
[2023-03-22] MEDS: FLUTICASONE/UMECLIDIN/VILANTER(200-62.5-25 TRELEGY ELLIPTA) INAHLER IH SCH (10:45)
[2023-03-22] MEDS: FLUTICASONE PROP 0.05% 16 GM NASAL SPRAY NS SCH (17:31)
[2023-03-22] MEDS: INSULIN (LEVEMIR) 100 UNITS/ML UNITS SQ SCH (22:55)
[2023-03-23] MEDS: LORATADINE 10 MG TABLET PO SCH (11:14)
[2023-03-23] MEDS: PANTOPRAZOLE 40 MG TABLET PO SCH (11:14)
[2023-03-23] MEDS: DEXAMETHASONE 4 MG TABLET (FP) PO SCH (11:14)
[2023-03-23] MEDS: RAMIPRIL 5 MG CAPSULE PO SCH (11:16)
[2023-03-23] MEDS: CARVEDILOL 6.25 MG TABLET (FP) PO SCH ×2 (11:16→22:31)
[2023-03-23] MEDS: ASPIRIN COATED 81 MG TABLET.EC PO SCH (11:16)
[2023-03-23] MEDS: FUROSEMIDE 40 MG TABLET (FP) PO SCH (11:16)
[2023-03-23] MEDS: FLUTICASONE PROP 0.05% 16 GM NASAL SPRAY NS SCH (11:16)
[2023-03-23] MEDS: POLYETHYLENE GLYCOL (HEALTHYLAX) 3350 17 GM PACKET PO SCH (11:16)
[2023-03-23] MEDS: DEXAMETHASONE SOD PHOSPHATE 10 MG/1 ML VIAL IVPUSH SCH (11:21)
[2023-03-23] MEDS: FUROSEMIDE 40 MG/4 ML INJECTABLE VIAL IVPUSH SCH (11:22)
[2023-03-23] MEDS: FLUTICASONE/UMECLIDIN/VILANTER(200-62.5-25 TRELEGY ELLIPTA) INAHLER IH SCH (11:23)
[2023-03-23] MEDS: INSULIN (LEVEMIR) 100 UNITS/ML UNITS SQ SCH (22:27)
[2023-03-24] MEDS: PANTOPRAZOLE 40 MG TABLET PO SCH (09:25)
[2023-03-24] MEDS: RAMIPRIL 5 MG CAPSULE PO SCH (09:25)
[2023-03-24] MEDS: LORATADINE 10 MG TABLET PO SCH (09:25)
[2023-03-24] MEDS: DEXAMETHASONE 4 MG TABLET (FP) PO SCH (09:25)
[2023-03-24] MEDS: ASPIRIN COATED 81 MG TABLET.EC PO SCH (09:25)
[2023-03-24] MEDS: FUROSEMIDE 40 MG TABLET (FP) PO SCH (09:26)
[2023-03-24] MEDS: CARVEDILOL 6.25 MG TABLET (FP) PO SCH ×2 (09:26→23:27)
[2023-03-24] MEDS: POLYETHYLENE GLYCOL (HEALTHYLAX) 3350 17 GM PACKET PO SCH (09:26)
[2023-03-24] MEDS: FLUTICASONE PROP 0.05% 16 GM NASAL SPRAY NS SCH (09:28)
[2023-03-24] MEDS: FLUTICASONE/UMECLIDIN/VILANTER(200-62.5-25 TRELEGY ELLIPTA) INAHLER IH SCH (09:28)
[2023-03-24] MEDS: LISINOPRIL 5 MG TABLET PO SCH ×3 (09:51→09:52)
[2023-03-24] MEDS ORDERED: ACETAMINOPHEN 325 MG TABLET (FP) PO PRN (11:18)
[2023-03-24] MEDS: BACITRACIN ZINC 15 GM TUBE TOPICAL OINTMENT TP SCH (16:47)
[2023-03-24] MEDS: INSULIN (LEVEMIR) 100 UNITS/ML UNITS SQ SCH (23:27)
[2023-03-25 08:34] VITALS: RESP 20
[2023-03-25] MEDS: ASPIRIN COATED 81 MG TABLET.EC PO SCH (10:06)
[2023-03-25] MEDS: RAMIPRIL 5 MG CAPSULE PO SCH (10:06)
[2023-03-25] MEDS: CARVEDILOL 6.25 MG TABLET (FP) PO SCH ×2 (10:06→21:54)
[2023-03-25] MEDS: PANTOPRAZOLE 40 MG TABLET PO SCH (10:06)
[2023-03-25] MEDS: POLYETHYLENE GLYCOL (HEALTHYLAX) 3350 17 GM PACKET PO SCH (10:06)
[2023-03-25] MEDS: FUROSEMIDE 40 MG TABLET (FP) PO SCH (10:06)
[2023-03-25] MEDS: LORATADINE 10 MG TABLET PO SCH (10:06)
[2023-03-25] MEDS: BACITRACIN ZINC 15 GM TUBE TOPICAL OINTMENT TP SCH (10:07)
[2023-03-25] MEDS: FLUTICASONE PROP 0.05% 16 GM NASAL SPRAY NS SCH (10:08)
[2023-03-25] MEDS: FLUTICASONE/UMECLIDIN/VILANTER(200-62.5-25 TRELEGY ELLIPTA) INAHLER IH SCH (10:08)
[2023-03-25] MEDS: INSULIN (LEVEMIR) 100 UNITS/ML UNITS SQ SCH (21:54)
[2023-03-26] MEDS: CARVEDILOL 6.25 MG TABLET (FP) PO SCH (11:15)
[2023-03-26] MEDS: RAMIPRIL 5 MG CAPSULE PO SCH (11:15)
[2023-03-26] MEDS: PANTOPRAZOLE 40 MG TABLET PO SCH (11:16)
[2023-03-26] MEDS: POLYETHYLENE GLYCOL (HEALTHYLAX) 3350 17 GM PACKET PO SCH (11:16)
[2023-03-26] MEDS: LORATADINE 10 MG TABLET PO SCH (11:16)
[2023-03-26] MEDS: ASPIRIN COATED 81 MG TABLET.EC PO SCH (11:16)
[2023-03-26] MEDS: FUROSEMIDE 40 MG TABLET (FP) PO SCH (11:16)
[2023-03-26] MEDS: FLUTICASONE/UMECLIDIN/VILANTER(200-62.5-25 TRELEGY ELLIPTA) INAHLER IH SCH (11:27)
[2023-03-26] MEDS: FLUTICASONE PROP 0.05% 16 GM NASAL SPRAY NS SCH (11:27)
[2023-03-26] MEDS: BACITRACIN ZINC 15 GM TUBE TOPICAL OINTMENT TP SCH (13:29)
[2023-03-26 14:08] VITALS: BP 115/72; PULSE 102; TEMP 97.9
== END 2023-03-26 15:45 | disposition home or self-care (01) | DRG 177 ==
LOC: JER 16:40 → JERBED 19:31 → J8W 23:37
PROVIDERS: ADMIT Family Medicine; ATTEND Family Medicine
PROC: XW033E5 Introduction of Remdesivir Anti-infective into Peripheral Vein, Percutaneous Approach, New Technology Group 5 (ICD-10-PCS; principal; 2023-03-11)
DX: U07.1 COVID-19 (principal); I50.33 Acute on chronic diastolic (congestive) heart failure; J12.82 Pneumonia due to coronavirus disease 2019; J96.21 Acute and chronic respiratory failure with hypoxia; Z68.44 Body mass index [BMI] 60.0-69.9, adult; J44.1 Chronic obstructive pulmonary disease with (acute) exacerbation; J96.12 Chronic respiratory failure with hypercapnia; E66.01 Morbid (severe) obesity due to excess calories; G47.33 Obstructive sleep apnea (adult) (pediatric); K58.9 Irritable bowel syndrome, unspecified; K21.9 Gastro-esophageal reflux disease without esophagitis; I25.10 Atherosclerotic heart disease of native coronary artery without angina pectoris; E11.9 Type 2 diabetes mellitus without complications; I11.0 Hypertensive heart disease with heart failure; F41.8 Other specified anxiety disorders; Z98.84 Bariatric surgery status; W18.39XA Other fall on same level, initial encounter; Y92.230 Patient room in hospital as the place of occurrence of the external cause
CPT/HCPCS: 0241U-QW; 36415; 70450-TC; 71045-TC-FY; 73610-TC-RT-FY; 73630-TC-RT-FY; 80048; 80053; 82803; 82962; 83735; 83880; 84484; 85025; 87040; 87635; 87651; 93005; 93010; 93306-TC; 94660; 97116-GP; 97161-GP; 99285-25; C9399; J1100

== ENCOUNTER 2023-04-02 15:22 | Emergency (ER) | payer BC, OTHER ==
[2023-04-02 15:35] VITALS: BMI 67.9
[2023-04-02] MEDS ORDERED: VANCOMYCIN 1 GM PREMIX - 1 GM/200 ML BAG IVPB ONE (17:02)
[2023-04-02] MEDS ORDERED: VANCOMYCIN 2,000 MG in DEXTROSE 5%-WATER - 250 ML IVPB ONE (17:07)
[2023-04-02 17:17] LABS: BASO % 0.5 % (0-2.0); HEMATOCRIT 34.7 % (32.4-45.2); HEMOGLOBIN 10.9 GM/dL (10.7-15.3); LYMPH % 16.2 % (8-40); MCH 23.7 pg (25.7-33.7); MCHC 31.5 g/dl (32.0-36.0); MEAN CELL VOLUME 75.2 fl (80-96); MEAN PLT VOLUME 7.6 fl (7.5-11.1); MONO % 9.5 % (3.8-10.2); NEUT % 72.8 % (42.8-82.8); PLATELET COUNT 306 10^3/uL (134-434); RBC 4.61 M/mm3 (3.60-5.2); RDW 22.4 % (11.6-15.6); WHITE BLOOD COUNT 10.7 K/mm3 (4.0-10.0)
[2023-04-02 17:24] LABS: INR 0.9 (0.83-1.09); PROTHROMBIN TIME (PATIENT) 10.5 SEC (9.7-13.0)
[2023-04-02 17:26] LABS: ACTIVATED PTT 25.3 SECONDS (25.2-36.5)
[2023-04-02 17:43] LABS: POTASSIUM 3.4 mmol/L (3.5-5.1)
[2023-04-02 17:45] LABS: BLOOD UREA NITROGEN 12.6 mg/dL (7-18); CALCIUM 8.7 mg/dL (8.5-10.1)
[2023-04-02 17:46] LABS: ALBUMIN 3.2 g/dl (3.4-5.0)
[2023-04-02 17:49] LABS: CREATININE 0.7 mg/dL (0.55-1.3)
[2023-04-02 17:50] LABS: BILIRUBIN,TOTAL 0.1 mg/dL (0.2-1); TOT PROT 6.5 g/dl (6.4-8.2)
[2023-04-02 18:02] LABS: ERYTHROCYTE SEDIMENTATION RATE 22 mm/hr (0-30)
[2023-04-02 19:02] LABS: ANISOCYTOSIS 1+; MACROCYTOSIS 0
[2023-04-02 21:01] VITALS: TEMP 98.2
[2023-04-02 23:00] VITALS: BP 140/78; PULSE 82; RESP 18
== END 2023-04-03 00:25 | disposition home or self-care (01) ==
LOC: JER 15:22
DX: L97.511 Non-pressure chronic ulcer of other part of right foot limited to breakdown of skin (principal); L97.521 Non-pressure chronic ulcer of other part of left foot limited to breakdown of skin; S71.102A Unspecified open wound, left thigh, initial encounter; S91.001A Unspecified open wound, right ankle, initial encounter; B95.62 Methicillin resistant Staphylococcus aureus infection as the cause of diseases classified elsewhere; M79.661 Pain in right lower leg; M79.662 Pain in left lower leg; M79.89 Other specified soft tissue disorders; L03.90 Cellulitis, unspecified
CPT/HCPCS: 36415; 73590-TC-LT-FY; 73590-TC-RT-FY; 73630-TC-LT; 73630-TC-RT-FY; 80053; 85025; 85610; 85651; 85730; 86140; 86850; 86900; 86901; 93005; 93010; 93970-TC; 99285-25

== ENCOUNTER 2023-05-10 11:31 | Inpatient (IN) | payer BC, OTHER ==
[2023-05-10 14:25] LABS: BASO % 0.7 % (0-2.0); HEMATOCRIT 33.9 % (32.4-45.2); HEMOGLOBIN 10.4 GM/dL (10.7-15.3); LYMPH % 20.1 % (8-40); MCH 23.4 pg (25.7-33.7); MCHC 30.6 g/dl (32.0-36.0); MEAN CELL VOLUME 76.4 fl (80-96); MEAN PLT VOLUME 7.8 fl (7.5-11.1); MONO % 10.9 % (3.8-10.2); NEUT % 66.3 % (42.8-82.8); PLATELET COUNT 468 10^3/uL (134-434); RBC 4.43 M/mm3 (3.60-5.2); RDW 19.3 % (11.6-15.6); WHITE BLOOD COUNT 11.3 K/mm3 (4.0-10.0)
[2023-05-10 14:40] LABS: INR 1.04 (0.83-1.09); PROTHROMBIN TIME (PATIENT) 12.1 SEC (9.7-13.0)
[2023-05-10 14:43] LABS: ACTIVATED PTT 27.2 SECONDS (25.2-36.5)
[2023-05-10 14:54] LABS: CHLORIDE 82 mmol/L (98-107); SODIUM 128 mmol/L (136-145)
[2023-05-10 14:55] LABS: CALCIUM 8.9 mg/dL (8.5-10.1)
[2023-05-10 14:56] LABS: ALBUMIN 3.1 g/dl (3.4-5.0); BLOOD UREA NITROGEN 9.5 mg/dL (7-18); CO2 38 mmol/L (21-32); GLUCOSE,RANDOM 114 mg/dL (74-106); MAGNESIUM 1.8 mg/dL (1.8-2.4)
[2023-05-10 14:59] LABS: CREATININE 0.8 mg/dL (0.55-1.3)
[2023-05-10 15:01] LABS: BILIRUBIN,TOTAL 0.5 mg/dL (0.2-1); TOT PROT 8.3 g/dl (6.4-8.2)
[2023-05-10 15:02] LABS: ALK PHOS 110 U/L (45-117)
[2023-05-10 15:07] LABS: ANION GAP 9 MMOL/L (8-16); POTASSIUM 6.9 mmol/L (3.5-5.1); SGOT/AST 113 U/L (15-37); SGPT/ALT 36 U/L (13-61)
[2023-05-10] MEDS ORDERED: PIPERACILLIN/TAZOB 4.5 GM 4.5 GM in DEXTROSE 5%-WATER 100 ML IVPB ONE (16:15)
[2023-05-10] MEDS ORDERED: VANCOMYCIN 1,000 MG in DEXTROSE 5%-WATER - 250 ML IVPB ONE (16:15)
[2023-05-10] MEDS ORDERED: VANCOMYCIN 1 GRAM (PRE-DOCKED) 1,000 MG/250 ML BAG IVPB ONE (16:37)
[2023-05-10] MEDS ORDERED: PIPERACILLIN/TAZOB 4.5 GM 4.5 GM/100 ML BAG IVPB ONE (16:37)
[2023-05-10 19:46] LABS: POTASSIUM 3.4 mmol/L (3.5-5.1)
[2023-05-10 19:48] LABS: CALCIUM 8.8 mg/dL (8.5-10.1)
[2023-05-10 19:49] LABS: ALBUMIN 3.2 g/dl (3.4-5.0); BLOOD UREA NITROGEN 8.6 mg/dL (7-18)
[2023-05-10 19:52] LABS: CREATININE 0.7 mg/dL (0.55-1.3)
[2023-05-10 19:54] LABS: BILIRUBIN,TOTAL 0.4 mg/dL (0.2-1); TOT PROT 7.4 g/dl (6.4-8.2)
[2023-05-10] MEDS ORDERED: POTASSIUM CHLORIDE ORAL LIQUID 20 MEQ/15 ML PO ONE (22:09)
[2023-05-10] MEDS ORDERED: ACETAMINOPHEN 1000 MG/100 ML BAG IVPB ONE (23:15)
[2023-05-10] MEDS ORDERED: ACETAMINOPHEN 325 MG TABLET (FP) PO PRN (23:17)
[2023-05-10] MEDS ORDERED: ACETAMINOPHEN INJECTION 100 ML IVPB ONE (23:25)
[2023-05-11] MEDS ORDERED: CEFAZOLIN 1 GM in DEXTROSE 5%-WATER - 50 ML IVPB ONE (07:00)
[2023-05-11] MEDS ORDERED: metFORMIN HCL 500 MG TABLET (FP) ONE (07:37)
[2023-05-11 07:49] LABS: BASO % 0.6 % (0-2.0); EOS % 1.8 % (0-4.5); HEMATOCRIT 32.2 % (32.4-45.2); LYMPH % 18.8 % (8-40); MCH 23.9 pg (25.7-33.7); MEAN PLT VOLUME 7.5 fl (7.5-11.1); MONO % 12.7 % (3.8-10.2); NEUT % 66.1 % (42.8-82.8); PLATELET COUNT 436 10^3/uL (134-434); RBC 4.18 M/mm3 (3.60-5.2); WHITE BLOOD COUNT 10.6 K/mm3 (4.0-10.0)
[2023-05-11 08:15] LABS: POTASSIUM 3.5 mmol/L (3.5-5.1)
[2023-05-11 08:18] LABS: BLOOD UREA NITROGEN 8.7 mg/dL (7-18); CALCIUM 8.5 mg/dL (8.5-10.1)
[2023-05-11 08:21] LABS: CREATININE 0.9 mg/dL (0.55-1.3)
[2023-05-11 08:23] LABS: BILIRUBIN,TOTAL 0.4 mg/dL (0.2-1); TOT PROT 7.2 g/dl (6.4-8.2)
[2023-05-11] MEDS: metFORMIN HCL 500 MG TABLET (FP) PO SCH ×2 (08:26→17:13)
[2023-05-11] MEDS: INSULIN (LEVEMIR) 100 UNITS/ML UNITS SQ SCH (08:26)
[2023-05-11] MEDS ORDERED: FUROSEMIDE 40 MG TABLET (FP) ONE (09:05)
[2023-05-11] MEDS ORDERED: PANTOPRAZOLE 40 MG TABLET PO ONE (09:05)
[2023-05-11] MEDS ORDERED: ENOXAPARIN NA (PORCINE) 40 MG/0.4 ML DISP.SYRIN SQ ONE (09:06)
[2023-05-11] MEDS: ENOXAPARIN NA (PORCINE) 40 MG/0.4 ML DISP.SYRIN SQ SCH (09:30)
[2023-05-11] MEDS: RAMIPRIL 5 MG CAPSULE PO SCH (09:30)
[2023-05-11] MEDS: FUROSEMIDE 40 MG TABLET (FP) PO SCH (09:30)
[2023-05-11] MEDS: CARVEDILOL 6.25 MG TABLET (FP) PO SCH ×2 (09:30→22:44)
[2023-05-11] MEDS: PANTOPRAZOLE 40 MG TABLET PO SCH (09:31)
[2023-05-11] MEDS: BUDESONIDE/FORMETEROL FUMARATE 80/4.5 mcg INHALER IH SCH ×2 (10:17→22:44)
[2023-05-11 13:09] LABS: VENOUS BASE EXCESS 9.9 mmol/L (-2-2); VENOUS O2 SATURATION 75.6 % (70-80); VENOUS PH 7.396 (7.310-7.410)
[2023-05-11] MEDS ORDERED: FLUCONAZOLE 150 MG TABLET PO ONE (14:10)
[2023-05-11] MEDS: CEFAZOLIN SODIUM 2 GM in DEXTROSE 5%-WATER 100 ML IVPB SCH (20:02)
[2023-05-12] MEDS: ACETAMINOPHEN 325 MG TABLET (FP) PO PRN ×3 (01:08→21:38)
[2023-05-12] MEDS: CEFAZOLIN SODIUM 2 GM in DEXTROSE 5%-WATER 100 ML IVPB SCH ×2 (02:22→09:23)
[2023-05-12] MEDS ORDERED: INSULIN (LEVEMIR) 100 UNITS/ML UNITS SQ ONE (06:01)
[2023-05-12] MEDS: INSULIN (LEVEMIR) 100 UNITS/ML UNITS SQ SCH (06:28)
[2023-05-12] MEDS: metFORMIN HCL 500 MG TABLET (FP) PO SCH ×2 (06:28→16:50)
[2023-05-12] MEDS: PANTOPRAZOLE 40 MG TABLET PO SCH (09:23)
[2023-05-12] MEDS: CARVEDILOL 6.25 MG TABLET (FP) PO SCH ×2 (09:23→21:38)
[2023-05-12] MEDS: FUROSEMIDE 40 MG TABLET (FP) PO SCH (09:23)
[2023-05-12] MEDS: RAMIPRIL 5 MG CAPSULE PO SCH (09:23)
[2023-05-12] MEDS: ENOXAPARIN NA (PORCINE) 40 MG/0.4 ML DISP.SYRIN SQ SCH (09:24)
[2023-05-12] MEDS: BUDESONIDE/FORMETEROL FUMARATE 80/4.5 mcg INHALER IH SCH ×2 (09:24→21:45)
[2023-05-12 09:36] LABS: BASO % 0.4 % (0-2.0); EOS % 3.3 % (0-4.5); HEMATOCRIT 33.4 % (32.4-45.2); HEMOGLOBIN 10.3 GM/dL (10.7-15.3); LYMPH % 16.8 % (8-40); MCH 23.7 pg (25.7-33.7); MCHC 30.7 g/dl (32.0-36.0); MEAN CELL VOLUME 77.3 fl (80-96); MEAN PLT VOLUME 7.5 fl (7.5-11.1); MONO % 12.2 % (3.8-10.2); NEUT % 67.3 % (42.8-82.8); PLATELET COUNT 473 10^3/uL (134-434); RBC 4.32 M/mm3 (3.60-5.2); RDW 20.4 % (11.6-15.6); WHITE BLOOD COUNT 9.5 K/mm3 (4.0-10.0)
[2023-05-12 09:58] LABS: POTASSIUM 3.6 mmol/L (3.5-5.1)
[2023-05-12] MEDS ORDERED: KETOCONAZOLE 2% CREAM - 60GM TUBE TP SCH (10:00)
[2023-05-12 10:07] LABS: BLOOD UREA NITROGEN 8.4 mg/dL (7-18)
[2023-05-12 10:10] LABS: CREATININE 0.9 mg/dL (0.55-1.3)
[2023-05-12] MEDS ORDERED: LOPERAMIDE HCL 2 MG CAPSULE PO PRN (10:10)
[2023-05-12] MEDS: KETOCONAZOLE 2% TOPICAL CREAM 15 GM TUBE TP SCH (12:36)
[2023-05-12] MEDS: VANCOMYCIN/WATER 1250 MG 1,250 MG/250 ML BAG IVPB SCH (14:20)
[2023-05-13] MEDS: VANCOMYCIN/WATER 1250 MG 1,250 MG/250 ML BAG IVPB SCH ×2 (01:40→14:45)
[2023-05-13] MEDS: metFORMIN HCL 500 MG TABLET (FP) PO SCH ×3 (06:01→18:16)
[2023-05-13] MEDS: INSULIN (LEVEMIR) 100 UNITS/ML UNITS SQ SCH (06:01)
[2023-05-13 09:22] LABS: BASO % 0.9 % (0-2.0); EOS % 2.7 % (0-4.5); HEMATOCRIT 33.6 % (32.4-45.2); HEMOGLOBIN 10.2 GM/dL (10.7-15.3); LYMPH % 19.1 % (8-40); MCH 23.6 pg (25.7-33.7); MCHC 30.4 g/dl (32.0-36.0); MEAN CELL VOLUME 77.8 fl (80-96); MEAN PLT VOLUME 7.1 fl (7.5-11.1); NEUT % 64.3 % (42.8-82.8); PLATELET COUNT 482 10^3/uL (134-434); RBC 4.32 M/mm3 (3.60-5.2); RDW 20.1 % (11.6-15.6); WHITE BLOOD COUNT 7.8 K/mm3 (4.0-10.0)
[2023-05-13] MEDS ORDERED: FUROSEMIDE 40 MG TABLET (FP) PO ONE (09:31)
[2023-05-13 09:42] LABS: POTASSIUM 3.8 mmol/L (3.5-5.1)
[2023-05-13] MEDS: FUROSEMIDE 40 MG TABLET (FP) PO SCH ×2 (09:53→22:12)
[2023-05-13] MEDS: CARVEDILOL 6.25 MG TABLET (FP) PO SCH ×2 (09:53→22:12)
[2023-05-13] MEDS: RAMIPRIL 5 MG CAPSULE PO SCH (09:53)
[2023-05-13] MEDS: PANTOPRAZOLE 40 MG TABLET PO SCH (09:53)
[2023-05-13 09:54] LABS: CALCIUM 8.9 mg/dL (8.5-10.1)
[2023-05-13] MEDS: BUDESONIDE/FORMETEROL FUMARATE 80/4.5 mcg INHALER IH SCH ×2 (09:54→22:12)
[2023-05-13 09:55] LABS: BLOOD UREA NITROGEN 7.1 mg/dL (7-18)
[2023-05-13 09:58] LABS: CREATININE 0.8 mg/dL (0.55-1.3)
[2023-05-13] MEDS ORDERED: MINERAL OIL/PETROLAT/WATER TOPICAL CREAM 454 GM JAR TP PRN (10:30)
[2023-05-13] MEDS: ALBUTEROL SO4 HFA INHALER IH PRN (11:29)
[2023-05-13] MEDS: KETOCONAZOLE 2% TOPICAL CREAM 15 GM TUBE TP SCH (11:29)
[2023-05-13] MEDS: ENOXAPARIN NA (PORCINE) 40 MG/0.4 ML DISP.SYRIN SQ SCH (11:30)
[2023-05-13 11:50] LABS: CALCIUM 8.9 mg/dL (8.5-10.1)
[2023-05-13 11:51] LABS: BLOOD UREA NITROGEN 7.1 mg/dL (7-18)
[2023-05-13 11:54] LABS: CREATININE 0.8 mg/dL (0.55-1.3)
[2023-05-13] MEDS: ACETAMINOPHEN 325 MG TABLET (FP) PO PRN (22:12)
[2023-05-14] MEDS: VANCOMYCIN/WATER 1250 MG 1,250 MG/250 ML BAG IVPB SCH ×2 (01:40→15:59)
[2023-05-14] MEDS: metFORMIN HCL 500 MG TABLET (FP) PO SCH ×2 (06:07→17:35)
[2023-05-14] MEDS: INSULIN (LEVEMIR) 100 UNITS/ML UNITS SQ SCH (06:08)
[2023-05-14] MEDS: ACETAMINOPHEN 325 MG TABLET (FP) PO PRN ×2 (06:18→22:10)
[2023-05-14 10:25] LABS: BASO % 0.9 % (0-2.0); EOS % 3.3 % (0-4.5); HEMATOCRIT 30.5 % (32.4-45.2); HEMOGLOBIN 9.7 GM/dL (10.7-15.3); LYMPH % 19.8 % (8-40); MCH 24.5 pg (25.7-33.7); MCHC 31.9 g/dl (32.0-36.0); MEAN CELL VOLUME 76.9 fl (80-96); MEAN PLT VOLUME 7.1 fl (7.5-11.1); MONO % 15.8 % (3.8-10.2); NEUT % 60.2 % (42.8-82.8); PLATELET COUNT 444 10^3/uL (134-434); RBC 3.97 M/mm3 (3.60-5.2); RDW 20.1 % (11.6-15.6); WHITE BLOOD COUNT 8.1 K/mm3 (4.0-10.0)
[2023-05-14] MEDS: PANTOPRAZOLE 40 MG TABLET PO SCH (11:14)
[2023-05-14] MEDS: RAMIPRIL 5 MG CAPSULE PO SCH (11:14)
[2023-05-14] MEDS: CARVEDILOL 6.25 MG TABLET (FP) PO SCH ×2 (11:14→22:08)
[2023-05-14] MEDS: FUROSEMIDE 40 MG TABLET (FP) PO SCH ×3 (11:15→23:04)
[2023-05-14] MEDS: ENOXAPARIN NA (PORCINE) 40 MG/0.4 ML DISP.SYRIN SQ SCH (11:15)
[2023-05-14] MEDS: BUDESONIDE/FORMETEROL FUMARATE 80/4.5 mcg INHALER IH SCH ×2 (11:15→22:08)
[2023-05-14] MEDS: ALBUTEROL SO4 HFA INHALER IH PRN (11:16)
[2023-05-14] MEDS: KETOCONAZOLE 2% TOPICAL CREAM 15 GM TUBE TP SCH (11:17)
[2023-05-15] MEDS: VANCOMYCIN/WATER 1250 MG 1,250 MG/250 ML BAG IVPB SCH ×2 (02:11→14:17)
[2023-05-15] MEDS: metFORMIN HCL 500 MG TABLET (FP) PO SCH ×2 (06:24→17:10)
[2023-05-15] MEDS: INSULIN (LEVEMIR) 100 UNITS/ML UNITS SQ SCH (06:24)
[2023-05-15] MEDS ORDERED: SODIUM HYPOCHLORITE 0.5% 473 ML- BULK BOTTLE TP SCH (10:00)
[2023-05-15 10:09] LABS: BASO % 1.5 % (0-2.0); EOS % 2.5 % (0-4.5); HEMATOCRIT 32.8 % (32.4-45.2); HEMOGLOBIN 9.8 GM/dL (10.7-15.3); LYMPH % 20.6 % (8-40); MCH 23.5 pg (25.7-33.7); MCHC 29.9 g/dl (32.0-36.0); MEAN CELL VOLUME 78.5 fl (80-96); MEAN PLT VOLUME 7.5 fl (7.5-11.1); MONO % 13.5 % (3.8-10.2); NEUT % 61.9 % (42.8-82.8); PLATELET COUNT 431 10^3/uL (134-434); RBC 4.17 M/mm3 (3.60-5.2); RDW 19.8 % (11.6-15.6); WHITE BLOOD COUNT 7.9 K/mm3 (4.0-10.0)
[2023-05-15 10:30] LABS: POTASSIUM 4.1 mmol/L (3.5-5.1)
[2023-05-15 10:31] LABS: CALCIUM 8.7 mg/dL (8.5-10.1)
[2023-05-15 10:32] LABS: BLOOD UREA NITROGEN 8.2 mg/dL (7-18)
[2023-05-15 10:35] LABS: CREATININE 0.7 mg/dL (0.55-1.3)
[2023-05-15] MEDS ORDERED: FUROSEMIDE 40 MG TABLET (FP) PO ONE (10:40)
[2023-05-15] MEDS: CARVEDILOL 6.25 MG TABLET (FP) PO SCH ×2 (11:17→21:09)
[2023-05-15] MEDS: ENOXAPARIN NA (PORCINE) 40 MG/0.4 ML DISP.SYRIN SQ SCH (11:17)
[2023-05-15] MEDS: RAMIPRIL 5 MG CAPSULE PO SCH (11:18)
[2023-05-15] MEDS: PANTOPRAZOLE 40 MG TABLET PO SCH (11:20)
[2023-05-15] MEDS: BUDESONIDE/FORMETEROL FUMARATE 80/4.5 mcg INHALER IH SCH ×2 (11:23→21:42)
[2023-05-15] MEDS: KETOCONAZOLE 2% TOPICAL CREAM 15 GM TUBE TP SCH (11:24)
[2023-05-15] MEDS: SODIUM HYPOCHLORITE 0.5% 473 ML- BULK BOTTLE TP SCH (11:30)
[2023-05-15] MEDS: FUROSEMIDE 40 MG TABLET (FP) PO SCH (11:56)
[2023-05-15] MEDS: ACETAMINOPHEN 325 MG TABLET (FP) PO PRN (17:48)
[2023-05-16] MEDS: metFORMIN HCL 500 MG TABLET (FP) PO SCH ×2 (07:34→17:36)
[2023-05-16] MEDS: INSULIN (LEVEMIR) 100 UNITS/ML UNITS SQ SCH (07:34)
[2023-05-16 09:05] LABS: BASO % 0.7 % (0-2.0); EOS % 2.7 % (0-4.5); HEMATOCRIT 31.3 % (32.4-45.2); HEMOGLOBIN 9.6 GM/dL (10.7-15.3); LYMPH % 18.8 % (8-40); MCH 24.1 pg (25.7-33.7); MCHC 30.5 g/dl (32.0-36.0); MEAN PLT VOLUME 7.6 fl (7.5-11.1); MONO % 16.8 % (3.8-10.2); PLATELET COUNT 416 10^3/uL (134-434); RBC 3.97 M/mm3 (3.60-5.2); RDW 19.9 % (11.6-15.6); WHITE BLOOD COUNT 7.9 K/mm3 (4.0-10.0)
[2023-05-16 09:14] LABS: POTASSIUM 3.8 mmol/L (3.5-5.1)
[2023-05-16 09:21] LABS: CALCIUM 8.5 mg/dL (8.5-10.1)
[2023-05-16 09:24] LABS: CREATININE 0.6 mg/dL (0.55-1.3)
[2023-05-16] MEDS: RAMIPRIL 5 MG CAPSULE PO SCH (10:26)
[2023-05-16] MEDS: ENOXAPARIN NA (PORCINE) 40 MG/0.4 ML DISP.SYRIN SQ SCH (10:27)
[2023-05-16] MEDS: PANTOPRAZOLE 40 MG TABLET PO SCH (10:27)
[2023-05-16] MEDS: CARVEDILOL 6.25 MG TABLET (FP) PO SCH ×2 (10:27→22:54)
[2023-05-16] MEDS: KETOCONAZOLE 2% TOPICAL CREAM 15 GM TUBE TP SCH (10:35)
[2023-05-16] MEDS: BUDESONIDE/FORMETEROL FUMARATE 80/4.5 mcg INHALER IH SCH ×2 (10:36→22:55)
[2023-05-16] MEDS: SODIUM HYPOCHLORITE 0.5% 473 ML- BULK BOTTLE TP SCH (10:37)
[2023-05-16] MEDS ORDERED: FUROSEMIDE 40 MG TABLET (FP) PO ONE (12:45)
[2023-05-16] MEDS: VANCOMYCIN/WATER 1250 MG 1,250 MG/250 ML BAG IVPB SCH (14:51)
[2023-05-17] MEDS: INSULIN (LEVEMIR) 100 UNITS/ML UNITS SQ SCH (06:36)
[2023-05-17] MEDS: metFORMIN HCL 500 MG TABLET (FP) PO SCH ×2 (06:36→17:58)
[2023-05-17] MEDS: RAMIPRIL 5 MG CAPSULE PO SCH (09:07)
[2023-05-17] MEDS: ENOXAPARIN NA (PORCINE) 40 MG/0.4 ML DISP.SYRIN SQ SCH (09:07)
[2023-05-17] MEDS: PANTOPRAZOLE 40 MG TABLET PO SCH (09:07)
[2023-05-17] MEDS: CARVEDILOL 6.25 MG TABLET (FP) PO SCH ×2 (09:07→23:36)
[2023-05-17 09:08] LABS: HEMOGLOBIN 9.4 GM/dL (10.7-15.3); MCH 23.7 pg (25.7-33.7); MCHC 30.4 g/dl (32.0-36.0); MEAN PLT VOLUME 7.4 fl (7.5-11.1); PLATELET COUNT 442 10^3/uL (134-434); RBC 3.97 M/mm3 (3.60-5.2); WHITE BLOOD COUNT 8.5 K/mm3 (4.0-10.0)
[2023-05-17] MEDS: KETOCONAZOLE 2% TOPICAL CREAM 15 GM TUBE TP SCH (09:08)
[2023-05-17] MEDS: SODIUM HYPOCHLORITE 0.5% 473 ML- BULK BOTTLE TP SCH (09:08)
[2023-05-17] MEDS: BUDESONIDE/FORMETEROL FUMARATE 80/4.5 mcg INHALER IH SCH ×2 (09:09→22:00)
[2023-05-17 09:31] LABS: POTASSIUM 3.9 mmol/L (3.5-5.1)
[2023-05-17 09:32] LABS: CALCIUM 8.6 mg/dL (8.5-10.1)
[2023-05-17 09:33] LABS: BLOOD UREA NITROGEN 7.4 mg/dL (7-18)
[2023-05-17 09:36] LABS: CREATININE 0.6 mg/dL (0.55-1.3)
[2023-05-17 10:13] LABS: ANISOCYTOSIS 1+
[2023-05-17 11:22] VITALS: BMI 58.5
[2023-05-17] MEDS: VANCOMYCIN/WATER 1250 MG 1,250 MG/250 ML BAG IVPB SCH (13:21)
[2023-05-17] MEDS: ALBUTEROL SO4 HFA INHALER IH PRN (22:01)
[2023-05-18] MEDS: metFORMIN HCL 500 MG TABLET (FP) PO SCH ×2 (06:49→17:57)
[2023-05-18] MEDS: INSULIN (LEVEMIR) 100 UNITS/ML UNITS SQ SCH (06:50)
[2023-05-18 10:08] LABS: POTASSIUM 3.9 mmol/L (3.5-5.1)
[2023-05-18] MEDS: CARVEDILOL 6.25 MG TABLET (FP) PO SCH ×2 (10:09→22:24)
[2023-05-18] MEDS: FUROSEMIDE 40 MG TABLET (FP) PO SCH (10:09)
[2023-05-18] MEDS: AMINO ACIDS/PROTEIN HYDROLYS 30 ML LIQUID.PKT PO SCH (10:09)
[2023-05-18] MEDS: PANTOPRAZOLE 40 MG TABLET PO SCH (10:09)
[2023-05-18] MEDS: RAMIPRIL 5 MG CAPSULE PO SCH (10:09)
[2023-05-18] MEDS: MULTIVITAMINS THER W-MINERALS COMBO TABLET (FP) PO SCH (10:09)
[2023-05-18] MEDS: BUDESONIDE/FORMETEROL FUMARATE 80/4.5 mcg INHALER IH SCH ×2 (10:12→22:24)
[2023-05-18] MEDS: SODIUM HYPOCHLORITE 0.5% 473 ML- BULK BOTTLE TP SCH (10:12)
[2023-05-18] MEDS: KETOCONAZOLE 2% TOPICAL CREAM 15 GM TUBE TP SCH (10:12)
[2023-05-18 10:23] LABS: BLOOD UREA NITROGEN 7.1 mg/dL (7-18); CALCIUM 9.2 mg/dL (8.5-10.1)
[2023-05-18 10:25] LABS: CREATININE 0.6 mg/dL (0.55-1.3)
[2023-05-18] MEDS: VANCOMYCIN/WATER 1250 MG 1,250 MG/250 ML BAG IVPB SCH (14:10)
[2023-05-18] MEDS: ACETAMINOPHEN 325 MG TABLET (FP) PO PRN (22:23)
[2023-05-18] MEDS: ALBUTEROL SO4 HFA INHALER IH PRN (22:24)
[2023-05-19] MEDS: metFORMIN HCL 500 MG TABLET (FP) PO SCH ×2 (06:37→17:02)
[2023-05-19] MEDS: INSULIN (LEVEMIR) 100 UNITS/ML UNITS SQ SCH (06:37)
[2023-05-19] MEDS: AMINO ACIDS/PROTEIN HYDROLYS 30 ML LIQUID.PKT PO SCH (09:23)
[2023-05-19] MEDS: FUROSEMIDE 40 MG TABLET (FP) PO SCH (09:43)
[2023-05-19] MEDS: MULTIVITAMINS THER W-MINERALS COMBO TABLET (FP) PO SCH (09:43)
[2023-05-19] MEDS: PANTOPRAZOLE 40 MG TABLET PO SCH (09:43)
[2023-05-19] MEDS: RAMIPRIL 5 MG CAPSULE PO SCH (09:43)
[2023-05-19] MEDS: CARVEDILOL 6.25 MG TABLET (FP) PO SCH ×2 (09:43→21:39)
[2023-05-19] MEDS: BUDESONIDE/FORMETEROL FUMARATE 80/4.5 mcg INHALER IH SCH ×2 (09:44→21:42)
[2023-05-19] MEDS: SODIUM HYPOCHLORITE 0.5% 473 ML- BULK BOTTLE TP SCH (09:44)
[2023-05-19 09:45] LABS: POTASSIUM 3.5 mmol/L (3.5-5.1)
[2023-05-19] MEDS: KETOCONAZOLE 2% TOPICAL CREAM 15 GM TUBE TP SCH (09:45)
[2023-05-19 09:46] LABS: CALCIUM 9.1 mg/dL (8.5-10.1)
[2023-05-19 09:47] LABS: BLOOD UREA NITROGEN 9.2 mg/dL (7-18)
[2023-05-19 09:50] LABS: CREATININE 0.7 mg/dL (0.55-1.3)
[2023-05-19] MEDS: VANCOMYCIN/WATER 1250 MG 1,250 MG/250 ML BAG IVPB SCH (13:18)
[2023-05-19] MEDS: ACETAMINOPHEN 325 MG TABLET (FP) PO PRN (21:53)
[2023-05-20] MEDS: metFORMIN HCL 500 MG TABLET (FP) PO SCH ×2 (06:35→17:39)
[2023-05-20] MEDS: INSULIN (LEVEMIR) 100 UNITS/ML UNITS SQ SCH (06:36)
[2023-05-20] MEDS: AMINO ACIDS/PROTEIN HYDROLYS 30 ML LIQUID.PKT PO SCH (08:02)
[2023-05-20] MEDS: RAMIPRIL 5 MG CAPSULE PO SCH (10:59)
[2023-05-20] MEDS: CARVEDILOL 6.25 MG TABLET (FP) PO SCH ×2 (11:00→21:53)
[2023-05-20] MEDS: FUROSEMIDE 40 MG TABLET (FP) PO SCH (11:00)
[2023-05-20] MEDS: PANTOPRAZOLE 40 MG TABLET PO SCH (11:00)
[2023-05-20] MEDS: MULTIVITAMINS THER W-MINERALS COMBO TABLET (FP) PO SCH (11:00)
[2023-05-20] MEDS: SODIUM HYPOCHLORITE 0.5% 473 ML- BULK BOTTLE TP SCH (11:02)
[2023-05-20] MEDS: KETOCONAZOLE 2% TOPICAL CREAM 15 GM TUBE TP SCH (11:03)
[2023-05-20] MEDS: BUDESONIDE/FORMETEROL FUMARATE 80/4.5 mcg INHALER IH SCH ×2 (11:03→22:13)
[2023-05-20] MEDS: VANCOMYCIN/WATER 1250 MG 1,250 MG/250 ML BAG IVPB SCH (14:45)
[2023-05-20] MEDS: ACETAMINOPHEN 325 MG TABLET (FP) PO PRN (22:07)
[2023-05-21] MEDS: metFORMIN HCL 500 MG TABLET (FP) PO SCH ×2 (06:22→17:41)
[2023-05-21] MEDS: INSULIN (LEVEMIR) 100 UNITS/ML UNITS SQ SCH (06:22)
[2023-05-21 10:18] LABS: POTASSIUM 3.5 mmol/L (3.5-5.1)
[2023-05-21 10:24] LABS: CALCIUM 9.1 mg/dL (8.5-10.1)
[2023-05-21 10:25] LABS: BLOOD UREA NITROGEN 7.8 mg/dL (7-18)
[2023-05-21 10:28] LABS: CREATININE 0.6 mg/dL (0.55-1.3)
[2023-05-21] MEDS: RAMIPRIL 5 MG CAPSULE PO SCH (10:46)
[2023-05-21] MEDS: CARVEDILOL 6.25 MG TABLET (FP) PO SCH ×2 (10:47→21:01)
[2023-05-21] MEDS: MULTIVITAMINS THER W-MINERALS COMBO TABLET (FP) PO SCH (10:47)
[2023-05-21] MEDS: PANTOPRAZOLE 40 MG TABLET PO SCH (10:47)
[2023-05-21] MEDS: SULFAMETHOXAZOLE/TRIMETHOPRIM 800MG/160MG D.S. TABLET PO SCH ×2 (10:47→21:01)
[2023-05-21] MEDS: FUROSEMIDE 40 MG TABLET (FP) PO SCH (10:47)
[2023-05-21] MEDS: AMINO ACIDS/PROTEIN HYDROLYS 30 ML LIQUID.PKT PO SCH (10:47)
[2023-05-21] MEDS: ENOXAPARIN NA (PORCINE) 40 MG/0.4 ML DISP.SYRIN SQ SCH (10:47)
[2023-05-21] MEDS: BUDESONIDE/FORMETEROL FUMARATE 80/4.5 mcg INHALER IH SCH ×2 (10:49→21:03)
[2023-05-21] MEDS: KETOCONAZOLE 2% TOPICAL CREAM 15 GM TUBE TP SCH (10:52)
[2023-05-21] MEDS: SODIUM HYPOCHLORITE 0.5% 473 ML- BULK BOTTLE TP SCH (10:52)
[2023-05-22 06:27] VITALS: PULSE 80
[2023-05-22] MEDS: INSULIN (LEVEMIR) 100 UNITS/ML UNITS SQ SCH ×2 (07:26→08:10)
[2023-05-22] MEDS: metFORMIN HCL 500 MG TABLET (FP) PO SCH ×3 (07:27→18:19)
[2023-05-22] MEDS: RAMIPRIL 5 MG CAPSULE PO SCH (10:07)
[2023-05-22] MEDS: FUROSEMIDE 40 MG TABLET (FP) PO SCH (10:07)
[2023-05-22] MEDS: MULTIVITAMINS THER W-MINERALS COMBO TABLET (FP) PO SCH (10:07)
[2023-05-22] MEDS: SULFAMETHOXAZOLE/TRIMETHOPRIM 800MG/160MG D.S. TABLET PO SCH (10:08)
[2023-05-22] MEDS: CARVEDILOL 6.25 MG TABLET (FP) PO SCH (10:08)
[2023-05-22] MEDS: ENOXAPARIN NA (PORCINE) 40 MG/0.4 ML DISP.SYRIN SQ SCH (10:08)
[2023-05-22] MEDS: PANTOPRAZOLE 40 MG TABLET PO SCH (10:08)
[2023-05-22] MEDS: AMINO ACIDS/PROTEIN HYDROLYS 30 ML LIQUID.PKT PO SCH (10:08)
[2023-05-22] MEDS: KETOCONAZOLE 2% TOPICAL CREAM 15 GM TUBE TP SCH (10:09)
[2023-05-22] MEDS: BUDESONIDE/FORMETEROL FUMARATE 80/4.5 mcg INHALER IH SCH (10:09)
[2023-05-22] MEDS: SODIUM HYPOCHLORITE 0.5% 473 ML- BULK BOTTLE TP SCH (10:09)
[2023-05-22 11:13] LABS: POTASSIUM 3.4 mmol/L (3.5-5.1)
[2023-05-22 11:21] LABS: CALCIUM 9.1 mg/dL (8.5-10.1)
[2023-05-22 11:22] LABS: BLOOD UREA NITROGEN 9.9 mg/dL (7-18)
[2023-05-22 11:25] LABS: CREATININE 0.7 mg/dL (0.55-1.3)
[2023-05-22 15:38] VITALS: BP 126/71; RESP 16; TEMP 98.3
== END 2023-05-22 18:20 | disposition home health service (06) | DRG 602 ==
LOC: JER 11:31 → JERBED 16:44 → J8W 05-11 17:58
PROVIDERS: ADMIT Family Medicine; ATTEND Family Medicine
PROC: 5A09557 Assistance with Respiratory Ventilation, Greater than 96 Consecutive Hours, Continuous Positive Airway Pressure (ICD-10-PCS; principal; 2023-05-12)
DX: L03.115 Cellulitis of right lower limb (principal); I50.33 Acute on chronic diastolic (congestive) heart failure; J96.21 Acute and chronic respiratory failure with hypoxia; Z68.43 Body mass index [BMI] 50.0-59.9, adult; L03.116 Cellulitis of left lower limb; E66.01 Morbid (severe) obesity due to excess calories; G47.33 Obstructive sleep apnea (adult) (pediatric); I11.0 Hypertensive heart disease with heart failure; E11.9 Type 2 diabetes mellitus without complications; J44.9 Chronic obstructive pulmonary disease, unspecified
CPT/HCPCS: 0241U-QW; 36415; 71045-TC-FY; 73590-TC-LT-FY; 73590-TC-RT-FY; 73610-TC-LT-FY; 73610-TC-RT-FY; 73630-TC-LT; 73630-TC-RT-FY; 80048; 80053; 82803; 82962; 83605; 83735; 83880; 85025; 85610; 85730; 87040; 87070; 87186; 87205; 93005; 93010; 93306-TC; 93970-TC; 94660; 97116-GP; 97161-GP; 99285-25; G0463-25; G0480

== ENCOUNTER 2023-08-29 17:14 | Inpatient (IN) | payer BC, OTHER ==
[2023-08-29] MEDS ORDERED: ACETAMINOPHEN INJECTION 100 ML IVPB ONE (18:30)
[2023-08-29] MEDS ORDERED: ACETAMINOPHEN 1000 MG/100 ML BAG IVPB ONE (18:30)
[2023-08-29 19:36] LABS: CHLORIDE 94 mmol/L (98-107); POTASSIUM 5.6 mmol/L (3.5-5.1); SODIUM 131 mmol/L (136-145)
[2023-08-29 19:38] LABS: CALCIUM 8.9 mg/dL (8.5-10.1)
[2023-08-29 19:39] LABS: ALBUMIN 3.1 g/dl (3.4-5.0); ANION GAP 7 mmol/L (4-13); BLOOD UREA NITROGEN 14.6 mg/dL (7-18); CO2 30 mmol/L (21-32); GLUCOSE,RANDOM 86 mg/dL (74-106)
[2023-08-29 19:42] LABS: CREATININE 0.8 mg/dL (0.55-1.3); SGOT/AST 64 U/L (15-37); SGPT/ALT 24 U/L (13-61)
[2023-08-29 19:43] LABS: TOT PROT 8.6 g/dl (6.4-8.2)
[2023-08-29 19:44] LABS: BILIRUBIN,TOTAL 0.6 mg/dL (0.2-1)
[2023-08-29 19:45] LABS: ALK PHOS 103 U/L (45-117)
[2023-08-29 20:07] LABS: MCH 21.5 pg (25.7-33.7); MCHC 29.6 g/dl (32.0-36.0); MEAN CELL VOLUME 72.8 fl (80-96); MEAN PLT VOLUME 8.1 fl (7.5-11.1); RBC 5.12 M/mm3 (3.60-5.2); RDW 21.5 % (11.6-15.6); WHITE BLOOD COUNT 15.5 K/mm3 (4.0-10.0)
[2023-08-29 20:09] LABS: HEMATOCRIT 36.7 % (32.4-45.2); PLATELET COUNT 438 10^3/uL (134-434)
[2023-08-29 20:39] LABS: ANISOCYTOSIS 2+; MACROCYTOSIS 1+; TARGET CELLS 1+
[2023-08-29] MEDS ORDERED: VANCOMYCIN 1,000 MG in DEXTROSE 5%-WATER - 250 ML IVPB ONE (20:41)
[2023-08-29] MEDS ORDERED: PIPERACILLIN/TAZOB 4.5 GM 4.5 GM in DEXTROSE 5%-WATER 100 ML IVPB ONE (20:41)
[2023-08-29] MEDS ORDERED: PIPERACILLIN/TAZOB 4.5 GM 4.5 GM/100 ML BAG IVPB ONE (20:47)
[2023-08-29] MEDS ORDERED: VANCOMYCIN 1 GRAM (PRE-DOCKED) 1,000 MG/250 ML BAG IVPB ONE (20:47)
[2023-08-29 20:55] LABS: ERYTHROCYTE SEDIMENTATION RATE 48 mm/hr (0-30)
[2023-08-29] MEDS ORDERED: SODIUM CHLORIDE 0.9% 500 ML INFUS.BAG IV ONE (22:19)
[2023-08-30] MEDS ORDERED: SODIUM POLYSTYRENE SULFONATE 15 GM/60 ML BOTTLE PO ONE (08:06)
[2023-08-30] MEDS ORDERED: ALBUTEROL SO4 HFA INHALER IH PRN (08:13)
[2023-08-30] MEDS ORDERED: PIPERACILLIN/TAZOB 3.375 GM 3.375 GM in DEXTROSE 5%-WATER - 50 ML IVPB SCH (10:00)
[2023-08-30 11:20] LABS: BASO % 0.3 % (0-2.0); EOS % 1.9 % (0-4.5); HEMATOCRIT 33.3 % (32.4-45.2); HEMOGLOBIN 10.1 GM/dL (10.7-15.3); LYMPH % 16.9 % (8-40); MCH 22.1 pg (25.7-33.7); MCHC 30.3 g/dl (32.0-36.0); MEAN CELL VOLUME 72.8 fl (80-96); MEAN PLT VOLUME 7.8 fl (7.5-11.1); MONO % 9.5 % (3.8-10.2); NEUT % 71.4 % (42.8-82.8); PLATELET COUNT 429 10^3/uL (134-434); RBC 4.57 M/mm3 (3.60-5.2); WHITE BLOOD COUNT 12.1 K/mm3 (4.0-10.0)
[2023-08-30] MEDS: CARVEDILOL 6.25 MG TABLET (FP) PO SCH ×2 (11:49→21:45)
[2023-08-30] MEDS: LACTOBACILLUS ACIDOPHILUS 1 TABLET PO SCH (11:50)
[2023-08-30] MEDS: ASPIRIN COATED 81 MG TABLET.EC PO SCH (11:50)
[2023-08-30] MEDS: PANTOPRAZOLE 40 MG TABLET PO SCH (11:50)
[2023-08-30] MEDS ORDERED: ACETAMINOPHEN 1000 MG/100 ML BAG IVPB ONE (13:15)
[2023-08-30 13:22] LABS: CALCIUM 8.9 mg/dL (8.5-10.1); POTASSIUM 3.7 mmol/L (3.5-5.1)
[2023-08-30 13:23] LABS: BLOOD UREA NITROGEN 10.7 mg/dL (7-18)
[2023-08-30 13:26] LABS: CREATININE 0.6 mg/dL (0.55-1.3)
[2023-08-30 14:55] LABS: URINE APPEARANCE CLOUDY; URINE BILIRUBIN NEGATIVE (NEGATIVE); URINE COLOR DK YELLOW; URINE GLUCOSE (UA) NEGATIVE (NEGATIVE); URINE KETONE NEGATIVE (NEGATIVE); URINE LEUK ESTERASE NEGATIVE (NEGATIVE); URINE NITRITE NEGATIVE (NEGATIVE); URINE PROTEIN TRACE (NEGATIVE)
[2023-08-30 16:04] VITALS: BMI 63.3
[2023-08-30] MEDS: VANCOMYCIN/WATER 1250 MG 1,250 MG/250 ML BAG IVPB SCH (16:23)
[2023-08-30] MEDS: CEFEPIME 2 GM in DEXTROSE 5%-WATER 100 ML IVPB SCH (21:03)
[2023-08-31] MEDS: ACETAMINOPHEN 325 MG TABLET (FP) PO PRN ×2 (01:44→20:38)
[2023-08-31] MEDS: CEFEPIME 2 GM in DEXTROSE 5%-WATER 100 ML IVPB SCH ×2 (01:45→09:58)
[2023-08-31] MEDS: VANCOMYCIN/WATER 1250 MG 1,250 MG/250 ML BAG IVPB SCH ×2 (03:48→14:33)
[2023-08-31] MEDS: ASPIRIN COATED 81 MG TABLET.EC PO SCH (09:59)
[2023-08-31] MEDS: PANTOPRAZOLE 40 MG TABLET PO SCH (09:59)
[2023-08-31] MEDS: LACTOBACILLUS ACIDOPHILUS 1 TABLET PO SCH (09:59)
[2023-08-31] MEDS ORDERED: COLLAGENASE CLOSTRIDIUM HIST. 30 GRAMS TUBE TP SCH (10:00)
[2023-08-31] MEDS: CARVEDILOL 6.25 MG TABLET (FP) PO SCH ×2 (10:45→21:46)
[2023-08-31 12:50] LABS: POTASSIUM 3.4 mmol/L (3.5-5.1)
[2023-08-31 12:53] LABS: CALCIUM 8.6 mg/dL (8.5-10.1)
[2023-08-31 12:54] LABS: BLOOD UREA NITROGEN 9.2 mg/dL (7-18)
[2023-08-31 12:57] LABS: CREATININE 0.6 mg/dL (0.55-1.3)
[2023-08-31] MEDS: COLLAGENASE CLOSTRIDIUM HIST. 30 GRAMS TUBE TP SCH (14:33)
[2023-08-31] MEDS: PIPERACILLIN/TAZOB 4.5 GM 4.5 GM in DEXTROSE 5%-WATER 100 ML IVPB SCH ×2 (18:30→18:53)
[2023-09-01] MEDS: PIPERACILLIN/TAZOB 4.5 GM 4.5 GM in DEXTROSE 5%-WATER 100 ML IVPB SCH ×2 (02:53→10:26)
[2023-09-01] MEDS ORDERED: POTASSIUM CHLORIDE ORAL LIQUID 20 MEQ/15 ML PO ONE (10:08)
[2023-09-01] MEDS: CARVEDILOL 6.25 MG TABLET (FP) PO SCH ×2 (10:25→22:03)
[2023-09-01] MEDS: LACTOBACILLUS ACIDOPHILUS 1 TABLET PO SCH (10:25)
[2023-09-01] MEDS: PANTOPRAZOLE 40 MG TABLET PO SCH (10:25)
[2023-09-01] MEDS: ASPIRIN COATED 81 MG TABLET.EC PO SCH (10:26)
[2023-09-01 11:11] LABS: BASO % 0.4 % (0-2.0); EOS % 2.6 % (0-4.5); HEMATOCRIT 31.4 % (32.4-45.2); HEMOGLOBIN 9.3 GM/dL (10.7-15.3); LYMPH % 15.3 % (8-40); MCH 21.7 pg (25.7-33.7); MCHC 29.7 g/dl (32.0-36.0); MEAN PLT VOLUME 7.4 fl (7.5-11.1); MONO % 10.5 % (3.8-10.2); NEUT % 71.2 % (42.8-82.8); PLATELET COUNT 415 10^3/uL (134-434); RDW 21.3 % (11.6-15.6); WHITE BLOOD COUNT 8.2 K/mm3 (4.0-10.0)
[2023-09-01 11:16] LABS: POTASSIUM 3.9 mmol/L (3.5-5.1)
[2023-09-01 11:20] LABS: BLOOD UREA NITROGEN 8.3 mg/dL (7-18); CALCIUM 8.7 mg/dL (8.5-10.1)
[2023-09-01 11:23] LABS: CREATININE 0.6 mg/dL (0.55-1.3)
[2023-09-01] MEDS: COLLAGENASE CLOSTRIDIUM HIST. 30 GRAMS TUBE TP SCH (12:28)
[2023-09-01] MEDS: ACETAMINOPHEN 325 MG TABLET (FP) PO PRN (17:39)
[2023-09-01] MEDS: PIPERACILLIN/TAZOB 4.5 GM 4.5 GM in SODIUM CHLORIDE 100 ML IVPB SCH (19:36)
[2023-09-01] MEDS: ENOXAPARIN NA (PORCINE) 40 MG/0.4 ML DISP.SYRIN SQ SCH (22:04)
[2023-09-02] MEDS: PIPERACILLIN/TAZOB 4.5 GM 4.5 GM in SODIUM CHLORIDE 100 ML IVPB SCH ×3 (03:00→17:29)
[2023-09-02] MEDS: ENOXAPARIN NA (PORCINE) 40 MG/0.4 ML DISP.SYRIN SQ SCH ×2 (10:29→22:14)
[2023-09-02] MEDS: PANTOPRAZOLE 40 MG TABLET PO SCH (10:30)
[2023-09-02] MEDS: ACETAMINOPHEN 325 MG TABLET (FP) PO PRN ×2 (10:30→23:06)
[2023-09-02] MEDS: LACTOBACILLUS ACIDOPHILUS 1 TABLET PO SCH (10:30)
[2023-09-02] MEDS: CARVEDILOL 6.25 MG TABLET (FP) PO SCH ×2 (10:30→22:13)
[2023-09-02] MEDS: COLLAGENASE CLOSTRIDIUM HIST. 30 GRAMS TUBE TP SCH (10:31)
[2023-09-02 12:59] LABS: POTASSIUM 4.2 mmol/L (3.5-5.1)
[2023-09-02 13:00] LABS: BLOOD UREA NITROGEN 9.3 mg/dL (7-18); CALCIUM 8.7 mg/dL (8.5-10.1)
[2023-09-02 13:04] LABS: CREATININE 0.6 mg/dL (0.55-1.3)
[2023-09-03] MEDS: PIPERACILLIN/TAZOB 4.5 GM 4.5 GM in SODIUM CHLORIDE 100 ML IVPB SCH ×3 (02:15→17:20)
[2023-09-03] MEDS: CARVEDILOL 6.25 MG TABLET (FP) PO SCH ×2 (10:33→21:48)
[2023-09-03] MEDS: ENOXAPARIN NA (PORCINE) 40 MG/0.4 ML DISP.SYRIN SQ SCH ×2 (10:33→21:47)
[2023-09-03] MEDS: LACTOBACILLUS ACIDOPHILUS 1 TABLET PO SCH (10:33)
[2023-09-03] MEDS: PANTOPRAZOLE 40 MG TABLET PO SCH (10:33)
[2023-09-03] MEDS: COLLAGENASE CLOSTRIDIUM HIST. 30 GRAMS TUBE TP SCH (10:34)
[2023-09-03 16:47] LABS: BASO % 0.7 % (0-2.0); EOS % 2.9 % (0-4.5); HEMATOCRIT 33.5 % (32.4-45.2); HEMOGLOBIN 10.1 GM/dL (10.7-15.3); LYMPH % 21.9 % (8-40); MCH 22.1 pg (25.7-33.7); MCHC 30.1 g/dl (32.0-36.0); MEAN CELL VOLUME 73.5 fl (80-96); MEAN PLT VOLUME 7.5 fl (7.5-11.1); MONO % 8.6 % (3.8-10.2); NEUT % 65.9 % (42.8-82.8); PLATELET COUNT 477 10^3/uL (134-434); RBC 4.55 M/mm3 (3.60-5.2); RDW 21.2 % (11.6-15.6); WHITE BLOOD COUNT 9.7 K/mm3 (4.0-10.0)
[2023-09-03 16:55] LABS: POTASSIUM 4.3 mmol/L (3.5-5.1)
[2023-09-03 17:01] LABS: CREATININE 0.6 mg/dL (0.55-1.3)
[2023-09-03 17:03] LABS: BLOOD UREA NITROGEN 8.5 mg/dL (7-18)
[2023-09-03] MEDS: ACETAMINOPHEN 325 MG TABLET (FP) PO PRN (18:32)
[2023-09-03 19:01] LABS: ANISOCYTOSIS 2+; MACROCYTOSIS 0; OVALOCYTE 1+; TEAR DROP CELLS 1+
[2023-09-04] MEDS: PIPERACILLIN/TAZOB 4.5 GM 4.5 GM in SODIUM CHLORIDE 100 ML IVPB SCH ×3 (02:49→17:11)
[2023-09-04] MEDS: LACTOBACILLUS ACIDOPHILUS 1 TABLET PO SCH (09:48)
[2023-09-04] MEDS: PANTOPRAZOLE 40 MG TABLET PO SCH (09:48)
[2023-09-04] MEDS: ENOXAPARIN NA (PORCINE) 40 MG/0.4 ML DISP.SYRIN SQ SCH ×2 (09:48→21:36)
[2023-09-04] MEDS: CARVEDILOL 6.25 MG TABLET (FP) PO SCH ×2 (09:49→21:36)
[2023-09-04] MEDS: COLLAGENASE CLOSTRIDIUM HIST. 30 GRAMS TUBE TP SCH (09:49)
[2023-09-05] MEDS: PIPERACILLIN/TAZOB 4.5 GM 4.5 GM in SODIUM CHLORIDE 100 ML IVPB SCH ×3 (02:01→19:00)
[2023-09-05 10:20] LABS: POTASSIUM 4.2 mmol/L (3.5-5.1)
[2023-09-05 10:23] LABS: CALCIUM 9.1 mg/dL (8.5-10.1)
[2023-09-05 10:24] LABS: BLOOD UREA NITROGEN 6.8 mg/dL (7-18)
[2023-09-05] MEDS: CARVEDILOL 6.25 MG TABLET (FP) PO SCH ×2 (10:24→21:56)
[2023-09-05] MEDS: PANTOPRAZOLE 40 MG TABLET PO SCH (10:24)
[2023-09-05] MEDS: ENOXAPARIN NA (PORCINE) 40 MG/0.4 ML DISP.SYRIN SQ SCH ×2 (10:24→21:56)
[2023-09-05 10:26] LABS: CREATININE 0.5 mg/dL (0.55-1.3)
[2023-09-05] MEDS: LACTOBACILLUS ACIDOPHILUS 1 TABLET PO SCH (10:27)
[2023-09-05] MEDS: COLLAGENASE CLOSTRIDIUM HIST. 30 GRAMS TUBE TP SCH (10:35)
[2023-09-06] MEDS: ALBUTEROL SO4 0.083% IH SOL 2.5 MG/3 ML VIAL.NEB. NEB PRN ×2 (00:06→08:30)
[2023-09-06] MEDS: PIPERACILLIN/TAZOB 4.5 GM 4.5 GM in SODIUM CHLORIDE 100 ML IVPB SCH ×3 (01:58→17:14)
[2023-09-06] MEDS: CARVEDILOL 6.25 MG TABLET (FP) PO SCH ×2 (09:51→21:11)
[2023-09-06] MEDS: PANTOPRAZOLE 40 MG TABLET PO SCH (09:51)
[2023-09-06] MEDS: LACTOBACILLUS ACIDOPHILUS 1 TABLET PO SCH (09:51)
[2023-09-06] MEDS: ENOXAPARIN NA (PORCINE) 40 MG/0.4 ML DISP.SYRIN SQ SCH ×2 (09:57→21:11)
[2023-09-06] MEDS: COLLAGENASE CLOSTRIDIUM HIST. 30 GRAMS TUBE TP SCH (09:58)
[2023-09-06 10:46] LABS: POTASSIUM 4.4 mmol/L (3.5-5.1)
[2023-09-06 10:48] LABS: CALCIUM 9.2 mg/dL (8.5-10.1)
[2023-09-06 10:49] LABS: BLOOD UREA NITROGEN 8.5 mg/dL (7-18)
[2023-09-06 10:52] LABS: CREATININE 0.6 mg/dL (0.55-1.3)
[2023-09-07] MEDS: ACETAMINOPHEN 325 MG TABLET (FP) PO PRN ×2 (00:05→23:18)
[2023-09-07] MEDS: PIPERACILLIN/TAZOB 4.5 GM 4.5 GM in SODIUM CHLORIDE 100 ML IVPB SCH ×3 (01:44→17:42)
[2023-09-07] MEDS: PANTOPRAZOLE 40 MG TABLET PO SCH (10:07)
[2023-09-07] MEDS: CARVEDILOL 6.25 MG TABLET (FP) PO SCH ×2 (10:07→22:48)
[2023-09-07] MEDS: LACTOBACILLUS ACIDOPHILUS 1 TABLET PO SCH (10:07)
[2023-09-07] MEDS: ENOXAPARIN NA (PORCINE) 40 MG/0.4 ML DISP.SYRIN SQ SCH ×2 (10:08→22:48)
[2023-09-07] MEDS: COLLAGENASE CLOSTRIDIUM HIST. 30 GRAMS TUBE TP SCH (10:09)
[2023-09-07 11:13] LABS: CALCIUM 9.3 mg/dL (8.5-10.1)
[2023-09-07 11:18] LABS: CREATININE 0.6 mg/dL (0.55-1.3)
[2023-09-07] MEDS ORDERED: FLUCONAZOLE 150 MG TABLET PO ONE (15:00)
[2023-09-08] MEDS: PIPERACILLIN/TAZOB 4.5 GM 4.5 GM in SODIUM CHLORIDE 100 ML IVPB SCH ×3 (02:39→18:45)
[2023-09-08] MEDS: LACTOBACILLUS ACIDOPHILUS 1 TABLET PO SCH (09:52)
[2023-09-08] MEDS: PANTOPRAZOLE 40 MG TABLET PO SCH (09:52)
[2023-09-08] MEDS: CARVEDILOL 6.25 MG TABLET (FP) PO SCH ×2 (09:52→22:03)
[2023-09-08] MEDS: ENOXAPARIN NA (PORCINE) 40 MG/0.4 ML DISP.SYRIN SQ SCH (09:52)
[2023-09-08] MEDS: COLLAGENASE CLOSTRIDIUM HIST. 30 GRAMS TUBE TP SCH (16:49)
[2023-09-08] MEDS: MICONAZOLE NITRATE 2% VAGINAL CREAM 45 GM TUBE VG SCH ×2 (22:03→22:06)
[2023-09-09] MEDS: PIPERACILLIN/TAZOB 4.5 GM 4.5 GM in SODIUM CHLORIDE 100 ML IVPB SCH ×3 (01:38→11:28)
[2023-09-09] MEDS: CARVEDILOL 6.25 MG TABLET (FP) PO SCH ×2 (09:54→21:32)
[2023-09-09] MEDS: PANTOPRAZOLE 40 MG TABLET PO SCH (09:54)
[2023-09-09] MEDS: LACTOBACILLUS ACIDOPHILUS 1 TABLET PO SCH (09:54)
[2023-09-09] MEDS: COLLAGENASE CLOSTRIDIUM HIST. 30 GRAMS TUBE TP SCH (17:15)
[2023-09-09] MEDS: ACETAMINOPHEN 325 MG TABLET (FP) PO PRN (17:44)
[2023-09-09] MEDS: MICONAZOLE NITRATE 2% VAGINAL CREAM 45 GM TUBE VG SCH (21:34)
[2023-09-10] MEDS: ACETAMINOPHEN 325 MG TABLET (FP) PO PRN (07:02)
[2023-09-10] MEDS: LACTOBACILLUS ACIDOPHILUS 1 TABLET PO SCH (10:20)
[2023-09-10] MEDS: PANTOPRAZOLE 40 MG TABLET PO SCH (10:20)
[2023-09-10] MEDS: CARVEDILOL 6.25 MG TABLET (FP) PO SCH (10:20)
[2023-09-10] MEDS: COLLAGENASE CLOSTRIDIUM HIST. 30 GRAMS TUBE TP SCH (12:16)
[2023-09-10 15:10] VITALS: BP 144/80; PULSE 81; RESP 18; TEMP 98.1
== END 2023-09-10 17:48 | disposition home or self-care (01) | DRG 603 ==
LOC: JER 17:14 → JERBED 20:46 → J5S 08-30 08:09
PROVIDERS: ADMIT Family Medicine; ATTEND Family Medicine
DX: L03.116 Cellulitis of left lower limb (principal); Z68.44 Body mass index [BMI] 60.0-69.9, adult; L97.929 Non-pressure chronic ulcer of unspecified part of left lower leg with unspecified severity; J96.12 Chronic respiratory failure with hypercapnia; E66.01 Morbid (severe) obesity due to excess calories; G47.33 Obstructive sleep apnea (adult) (pediatric); I10 Essential (primary) hypertension; J44.9 Chronic obstructive pulmonary disease, unspecified; E13.621 Other specified diabetes mellitus with foot ulcer; K21.9 Gastro-esophageal reflux disease without esophagitis; I89.0 Lymphedema, not elsewhere classified
CPT/HCPCS: 0241U-QW; 36415; 71045-TC-FY; 73590-TC-LT-FY; 73610-TC-LT-FY; 73630-TC-LT; 75635-TC; 80048; 80053; 81003; 82550; 82553; 82570; 82962; 83605; 83930; 84300; 85025; 85651; 86140; 87040; 87070; 87081; 87186; 87205; 93005; 93010; 93970-TC; 94010; 94640; 94660; 97116-GP; 97162-GP; 99285-25; Q9967